=== PATIENT | male | born 1940 | race Caucasian/White ===

== ENCOUNTER 2020-08-17 07:29 | Outpatient (CLI) | payer MEDICARE, BC, SELFPAY ==
[2020-08-17 08:07] LABS: Alanine Aminotransferase 17 U/L (4-50); Albumin Level 4.2 g/dL (3.5-5.1); Alkaline Phosphatase 61 U/L (38-126); Anion Gap 5 mmol/L (8-16); Aspartate Amino Transferase 23 U/L (17-59); Blood Urea Nitrogen 17 mg/dL (9-20); Calcium 9.1 mg/dL (8.4-10.2); Carbon Dioxide 31 mmol/L (22-30); Chloride 103 mmol/L (98-107); Cholesterol 142 mg/dL (0-200); Estimated Glomerular Filt Rate > 60; Glucose 127 mg/dL (75-110); HDL Direct 36 mg/dL; Potassium 4.1 mmol/L (3.4-5.0); Sodium 139 mmol/L (137-145); Triglycerides 112 mg/dL (<150)
[2020-08-17 08:18] LABS: LDL Cholesterol Direct 79 mg/dL
== END 2020-08-17 07:30 | disposition home or self-care (01) ==
PROVIDERS: PCP Internal Medicine; Referring Provider Internal Medicine Cardiovascular Disease; Visit Provider Nurse Practitioner
DX: E78.5 Hyperlipidemia, unspecified (principal)
CPT/HCPCS: 36415; 80053; 80061

== ENCOUNTER 2020-12-18 06:42 | Outpatient (CLI) | payer MEDICARE, BC, SELFPAY ==
[2020-12-18 07:36] LABS: Alanine Aminotransferase 16 U/L (4-50); Albumin Level 3.9 g/dL (3.5-5.1); Alkaline Phosphatase 49 U/L (38-126); Anion Gap 3 mmol/L (8-16); Aspartate Amino Transferase 24 U/L (17-59); Bilirubin,Total 0.9 mg/dL (0.2-1.3); Blood Urea Nitrogen 17 mg/dL (9-20); Calcium 8.8 mg/dL (8.4-10.2); Carbon Dioxide 29 mmol/L (22-30); Chloride 104 mmol/L (98-107); Cholesterol 141 mg/dL (0-200); Estimated Glomerular Filt Rate > 60; Glucose 125 mg/dL (75-110); HDL Direct 45 mg/dL; Sodium 136 mmol/L (137-145); Triglycerides 84 mg/dL (<150)
[2020-12-18 07:40] LABS: Hemoglobin A1C 5.9 % (<5.7)
[2020-12-18 07:46] LABS: LDL Cholesterol Direct 74 mg/dL
== END 2020-12-18 06:43 | disposition home or self-care (01) ==
LOC: ANHLAB 06:56
PROVIDERS: PCP Internal Medicine; Referring Provider Internal Medicine Cardiovascular Disease; Visit Provider Internal Medicine
DX: E11.9 Type 2 diabetes mellitus without complications (principal); E78.5 Hyperlipidemia, unspecified; I10 Essential (primary) hypertension
CPT/HCPCS: 36415; 80053; 80061; 83036

== ENCOUNTER 2021-06-23 09:32 | Outpatient (CLI) | payer MEDICARE, BC, SELFPAY ==
[2021-06-23 10:46] LABS: Alanine Aminotransferase 17 U/L (4-50); Albumin Level 4.1 g/dL (3.5-5.1); Alkaline Phosphatase 55 U/L (38-126); Anion Gap 7 mmol/L (8-16); Aspartate Amino Transferase 27 U/L (17-59); Bilirubin,Total 1.1 mg/dL (0.2-1.3); Blood Urea Nitrogen 13 mg/dL (9-20); Calcium 8.9 mg/dL (8.4-10.2); Carbon Dioxide 27 mmol/L (22-30); Chloride 100 mmol/L (98-107); Cholesterol 138 mg/dL (0-200); Estimated Glomerular Filt Rate > 60; Glucose 135 mg/dL (65-110); HDL Direct 52 mg/dL; Potassium 3.8 mmol/L (3.4-5.0); Sodium 134 mmol/L (137-145); Triglycerides 76 mg/dL (<150)
[2021-06-23 10:57] LABS: LDL Cholesterol Direct 67 mg/dL
[2021-06-23 11:11] LABS: Creatinine Urine 164.5 mg/dL; Hemoglobin A1C 6.2 % (<5.7)
[2021-06-23 11:14] LABS: MALB Creatinine Ratio 7.1 mg/g (0-30); Microalbumin Urine Random 11.7 mg/L (0-16.7)
== END 2021-06-23 09:33 | disposition home or self-care (01) ==
PROVIDERS: PCP Internal Medicine; Visit Provider Nurse Practitioner
DX: E78.5 Hyperlipidemia, unspecified (principal); E11.9 Type 2 diabetes mellitus without complications
CPT/HCPCS: 36415; 80053; 80061; 82043; 83036

== ENCOUNTER 2021-10-17 06:34 | Outpatient (CLI) | payer MEDICARE, BC, SELFPAY ==
--- NOTE | ~2021-10-17 | CT_ITS ---
EXAMINATION: CT abdomen pelvis wo/w con DATE: 10/17/2021 07:16 INDICATION: Gross hematuria, history of prostate cancer TECHNIQUE: Computed tomography (CT) of the abdomen and pelvis was performed without intravenous contr ast. CT of the abdomen and pelvis was then performed with a total of 130 mL Omnipaque 350 intravenous contrast using a double-bolus technique for simultaneous opacification of the renal parenchyma and r enal collecting system. The dose-length product (DLP) was 714.93 mGy-cm. Automated exposure control a nd iterative reconstruction technique were employed. COMPARISON: None FINDINGS: The lung bases are clear. The heart size is normal. There is mild nodularity of the liver s urface. The spleen, pancreas, gallbladder, and adrenal glands are normal. There is a 3 cm cyst of the right kidney. No suspicious renal or urothelial lesion is identified. Portions of the ureters are no t opacified however no obstructing lesion is identified. There are five nonobstructing stones in the right kidney which measure up to 5 mm. There are five nonobstructing stones of the left kidney which measure up to 6 mm. There are trabeculations of the urinary bladder. No pathologically enlarged abdom inal or pelvic lymph nodes are identified. There is calcified atherosclerosis of the aorta and many o f the other arteries. There is no free intraperitoneal gas or evidence of bowel obstruction. There is a burst fracture of L3. Severe lumbar spondylosis is noted at L4-5. IMPRESSION: 1. Nonobstructing bilateral nephrolithiasis. 2. Cirrhosis. Reviewed, dictated and finalized at location A. RCUTTER
[2021-10-17 07:01] LABS: Estimated Glomerular Filt Rate > 60
== END 2021-10-17 06:35 | disposition home or self-care (01) ==
LOC: ANHIMG 06:39
PROVIDERS: PCP Internal Medicine; Visit Provider Urology
DX: R31.0 Gross hematuria (principal); K74.60 Unspecified cirrhosis of liver; N20.0 Calculus of kidney
CPT/HCPCS: 74178; Q9967

== ENCOUNTER 2021-11-10 10:25 | Outpatient (CLI) | payer MEDICARE, BC, SELFPAY ==
--- NOTE | 2021-11-10 10:30 | ECG_ITS ---
Measurements Intervals Bath Rate: 89 P: VA: 0 QRS: 52 QRSD: 85 T: 31 QT: 344 QTc: 419 Interpretive Statements ATRIAL FIBRILLATION VENTRICULAR PREMATURE COMPLEX INCOMPLETE RIGHT BUNDLE BRANCH BLOCK DELAYED PRECORDIAL R/S TRANSITION BASELINE ARTIFACT- I, II, III, AVR, AVL, AVF, V1 ABNORMAL ECG Electronically Signed On 11-10-2021 11:43:38 [employer]PERVISOR [employer] by Franklin Liu D.O.
[2021-11-10 11:38] LABS: INR 1.3; Partial Thromboplastin Time 33.4 SECONDS (22.3-36.8); Prothrombin Time 16.1 Seconds (11.1-14.7)
[2021-11-10 11:43] LABS: Anion Gap 8 mmol/L (8-16); Blood Urea Nitrogen 16 mg/dL (9-20); Calcium 9.2 mg/dL (8.4-10.2); Carbon Dioxide 28 mmol/L (22-30); Chloride 100 mmol/L (98-107); Estimated Glomerular Filt Rate > 60; Glucose 137 mg/dL (65-110); Potassium 3.9 mmol/L (3.4-5.0); Sodium 136 mmol/L (137-145)
== END 2021-11-10 10:26 | disposition home or self-care (01) ==
PROVIDERS: Anesthesiology; PCP Internal Medicine; Visit Provider Urology
DX: Z01.818 Encounter for other preprocedural examination (principal); I10 Essential (primary) hypertension; E11.9 Type 2 diabetes mellitus without complications; N20.0 Calculus of kidney; R94.31 Abnormal electrocardiogram [ECG] [EKG]
CPT/HCPCS: 36415; 80048; 85610; 85730; 87086; 93005

== ENCOUNTER 2021-11-14 00:16 | Day surgery (SDC) | payer MEDICARE, BC, SELFPAY ==
[2021-11-07 11:09] VITALS: BMI 23.7
--- NOTE | 2021-11-07 11:40 | PC.NURSE ---
Report to the Outpatient Waiting Room, entrance under the green pavilion located off [facility], at time __10:00AM on date _11/14/21____. OR Time: ___12:00PM . - You and your visitor will be asked a series of questions to screen for COVID 19 for your protection. - A mask is required within the hospital. - Only one visitor is allowed at this time. Patient visitors will be guided where to wait when not with patient. Preoperative COVID Testing Requirements: No COVID Test needed if: (proof is required; if not received patient will have Rapid Test prior to entry) - Patient has received COVID Vaccine at least 14 days prior to procedure date or - Patient has positive COVID test result within last 90 days of surgery date. COVID Test needed if above criteria is not met If not COVID vaccinated a COVID test must be conducted within 72 hours of surgery and patient is asked to isolate self from time of testing until procedure. You will go to the [facility] for your COVID testing. The [facility] Testing site is located at the corner of [address] from [facility]. You will only be called if COVID results are positive and your surgeon may reschedule your elective surgery date. Patients may have clear liquids (water, carbonated beverages, clear teas, apple juice) until 3 hours prior to surgery with a maximum of 20 ounces. - No food from midnight until time of surgery - Infants may have breast milk until 4 hours before surgery, infant formula 6 hours prior to surgery. - Children will be allowed to drink immediately following surgery. If applicable, please bring a bottle or sippy cup to assist with drinking. Juice, water, soda, and popsicles are readily available. For infants on formula, please bring formula the day of surgery. Pacifiers are allowed. Take the following medications with a SIP of water the morning of surgery: ___DILTIAZEM, LORAZEPAM NEEDED Medications to discontinue per physician ____SHEILA LD 11/11/[address] SANDERS, ALL VITAMINS/SUPPLEMENTS 3 DAYS PRE-OP Date to take last dose 11/11/21 Please no make-up, nail chinese, hairspray, perfume, deodorant, or body powder the day of surgery. No jewelry (including any body piercings) or valuables the day of surgery, leave them at home. Please take a shower or bath the night before, or the morning of, surgery with an antibacterial soap. Wear comfortable, loose fitting clothing. Children are encouraged to wear pajamas. - Jewelry must be removed prior to entering the operating room. Rings and piercings that are not removed may be cut off. - The hospital will not accept responsibility for valuables. - Please leave all valuables, including medications, at home the day of surgery. If you are going home after surgery, a licensed medical delivery driver must drive you home. - NO public transportation without another adult. - We recommend that an adult stay with you for 24 hours following discharge. - We also recommend that you do not drive, make important decision, drink alcoholic beverages, or take any drugs that were not prescribed by your health care provider for at least 24 hours after your discharge time. For Pediatric surgeries, we recommend two adults accompany the child home (only one inside the building at this time). Follow any additional instructions given to you from your surgeon. Telephone instructions given to _PATIENT & WIFE and asked if any additional questions and then verbalized understanding. Patient advised to call surgeon office or pre surgery nurse liaison [phone] if any additional questions.
[2021-11-14] VITALS (8 sets, daily range): BP systolic 140–166; BP diastolic 71–93; PULSE 66–99; RESP 10–16; TEMP 36.3–37; O2SAT 97–100
--- NOTE | ~2021-11-14 | XR_ITS ---
EXAMINATION: XR abdomen/kub 1V DATE: 11/14/2021 09:22 INDICATION: Kidney stone. TECHNIQUE: A supine view of the abdomen on 2 radiographs was obtained. COMPARISON: CT abdomen and pelvis 10/17/2021 FINDINGS: There are no dilated loops of bowel. Surgical clips overlie the pelvis. The kidneys are obs cured by bowel. There is a 4 mm stone in left kidney lower pole. IMPRESSION: 1. 4 mm stone in left kidney lower pole. Reviewed, dictated and finalized at location B. OW REPRESENTATIVE
--- NOTE | 2021-11-14 07:50 | WPDANESEPP ---
Anes - Eval Pre Procedure Procedure: Operation Date: 11/14/21 11:00 Proposed Procedures p Flexible Cystoscopy - Judson Gonzáles MD s Left Extracorporeal Shock Wave Lithotripsy - Judson Gonzáles MD Date/Time: 11/14/21 07:50 Pre Op Diagnosis: Lt Kidney Stone Patient Data Age: 81 Gender: M Height: 1.78 m Weight: 75 kg Allergies Allergy/AdvReac Type Severity Reaction Status Date / Time No Known Allergies Allergy Verified 11/07/21 11:00 Home Medications Medication Instructions Recorded Confirmed Type docusate sodium 100 mg tablet 100 mg PO BID 09/18/19 11/07/21 History tamsulosin 0.4 mg capsule 0.4 mg PO HS 09/18/19 11/07/21 History vit C 250 mg-vit E 90 mg-zinc 40 1 tablet PO BID 05/13/21 11/07/21 History mg-copper 1 [id number] capsule lorazepam 0.5 mg tablet 0.5 mg PO DAILY PRN #30 tablet 10/07/21 11/07/21 Rx apixaban [Eliquis] 5 mg PO BID 11/07/21 11/07/21 History atorvastatin 10 mg PO HS 11/07/21 11/07/21 History diltiazem HCl 180 mg PO QAM 11/07/21 11/07/21 History escitalopram oxalate [Lexapro] 5 mg PO HS 11/07/21 11/07/21 History metformin 500 mg PO QACDINNER 11/07/21 11/07/21 History pantoprazole 40 mg tablet,delayed See Rx Instructions .ROUTE 11/12/21 Rx release .COMPLEX #90 tablet Patient hx anesthesia problems: none Family hx anesthesia problems: none Results Review: All pre-operative results and documents have been reviewed as part of the pre-operative evaluation. [facility] Past Medical History Medical History Atrial fibrillation BPH NOS w ur obs/LUTS (08/01/19) Depression Depression with anxiety Gastroesophageal reflux disease Hx of completed stroke Hypertension Prostate cancer Recurrent major depressive disorder, in full remission Stroke Type 2 diabetes mellitus without complication, with no history of insulin use (08/01/19) Family History Family History Mother Family history of alcoholism Family history unknown Father Malignant neoplasm of prostate Family history unknown Sibling Patient's sister is in good health Patient's brother is in good health Social History Social History Years smoked: 2 Smoking status: Former smoker Tobacco type: cigarettes Second hand tobacco smoke exposure: No Smoking end date: 05/01/1960 Additional smoking assessment comments: LIGHT SMOKER X2 YRS Alcohol intake: former Alcohol use details: HEAVY DRINKER/ALCOHOLIC, QUIT 1985 Substance use: never Living arrangements: with family Additional living arrangements comments: Spiritual care concerns: No Exam Day of Procedure 11/14/21 07:50 Patient weight: normal Heart: regular rate and rhythm (VR 89 ATRIAL FIBRILLATION VENTRICULAR PREMATURE COMPLEX INCOMPLETE RIGHT BUNDLE BRANCH BLOCK DELAYED PRECORDIAL R/S TRANSITION BASELINE ARTIFACT- I, II, III, AVR, AVL, AVF, V1 ABNORMAL ECG) Lungs: clear to auscultation Airway: Mallampati scale class II Neurological: alert and oriented
--- NOTE | 2021-11-14 08:20 | PM.HPGS ---
History of Present Illness History of Present Illness Consent: Risks, benefits, and alternatives have been discussed and questions answered. Patient agrees to proceed with procedure. Chief complaint: Lt Kidney Stone Narrative: Cholo Conteh Jr. is a 81 year old male, who is well known to me with long history of recurrent urethral stricture. He recently underwent evaluation for microscopic hematuria and CT scan the abdomen and pelvis revealed bilateral renal calculi, up to 5 mm in the right kidney and 6 mm in left kidney. After discussion of options he elected for left ESWL with simultaneous cystoscopy to complete evaluation for hematuria. Review of Systems Cardiovascular: Cardiovascular: Denies chest pain, Denies lightheadedness, Denies palpitations and Denies dyspnea Respiratory: Respiratory: Denies dyspnea Gastrointestinal: Gastrointestinal: Denies diarrhea, Denies nausea and Denies vomiting Genitourinary: Genitourinary: Denies hematuria and Denies dysuria Endocrine: Endocrine: Denies palpitations [facility] Past Medical History Medical History Atrial fibrillation BPH NOS w ur obs/LUTS (08/01/19) Depression Depression with anxiety Gastroesophageal reflux disease Hx of completed stroke Hypertension Prostate cancer Recurrent major depressive disorder, in full remission Stroke Type 2 diabetes mellitus without complication, with no history of insulin use (08/01/19) Family History Family History Mother Family history of alcoholism Family history unknown Father Malignant neoplasm of prostate Family history unknown Sibling Patient's sister is in good health Patient's brother is in good health Social History Social History Years smoked: 2 Smoking status: Former smoker Tobacco type: cigarettes Second hand tobacco smoke exposure: No Smoking end date: 05/01/1960 Additional smoking assessment comments: LIGHT SMOKER X2 YRS Alcohol intake: former Alcohol use details: HEAVY DRINKER/ALCOHOLIC, QUIT 1985 Substance use: never Living arrangements: with family Additional living arrangements comments: Spiritual care concerns: No Meds Home Medications and Allergies Home Medications Medication Instructions Recorded Confirmed Type docusate sodium 100 mg tablet 100 mg PO BID 09/18/19 11/07/21 History tamsulosin 0.4 mg capsule 0.4 mg PO HS 09/18/19 11/07/21 History vit C 250 mg-vit E 90 mg-zinc 40 1 tablet PO BID 05/13/21 11/07/21 History mg-copper 1 [id number] capsule lorazepam 0.5 mg tablet 0.5 mg PO DAILY PRN #30 tablet 10/07/21 11/07/21 Rx apixaban [Eliquis] 5 mg PO BID 11/07/21 11/07/21 History atorvastatin 10 mg PO HS 11/07/21 11/07/21 History diltiazem HCl 180 mg PO QAM 11/07/21 11/07/21 History escitalopram oxalate [Lexapro] 5 mg PO HS 11/07/21 11/07/21 History metformin 500 mg PO QACDINNER 11/07/21 11/07/21 History pantoprazole 40 mg tablet,delayed See Rx Instructions .ROUTE 11/12/21 Rx release .COMPLEX #90 tablet Allergies Allergy/AdvReac Type Severity Reaction Status Date / Time No Known Allergies Allergy Verified 11/07/21 11:00 Exam Const: General: no acute distress Resp: Effort & Inspection: normal respiratory effort GI: Inspection: non-distended GI Palp: No abdominal tenderness and No Guarding due to palpation present (GI) Auscultation: normal bowel sounds Assessment and Plan Assessment and plan (1) Microscopic hematuria: Code(s): R31.29 - Other microscopic hematuria Status: Acute (2) Bilateral renal stones: Code(s): N20.0 - Calculus of kidney Status: Acute Assessment and Plan: Flexible cystoscopy and left ESWL
--- NOTE | 2021-11-14 08:54 | WPDHPUPDATE1 ---
History and Physical Update Update Date/Time: 11/14/21 08:54 History and Physical has been reviewed, including an updated exam of the patient. There are NO changes in the patient's condition. Risks, benefits, and alternatives have been discussed and questions answered. Patient agrees to proceed with procedure.
[2021-11-14] MEDS: LACTATED RINGERS 1,000 ML 30 ML IV CONT (09:59)
[2021-11-14 10:00] LABS: Glucose Point of Care 113 mg/dl (65-105)
--- NOTE | 2021-11-14 10:05 | WPDANESEFPP ---
Anes - Eval Final PreProcedure Day of Procedure 11/14/21 10:05 Patient weight: normal Heart: regular rate and rhythm Lungs: clear to auscultation and normal air movement Airway: Mallampati scale class II Neurological: alert and oriented Last oral intake: >/= 8 hours ASA classification: III Emergent: no Anesthetic plan: proceed Anesthesia type and monitoring: general LMA and standard monitoring Results Review: All pre-operative results and documents have been reviewed as part of the pre-operative evaluation. Informed Consent: The patient's anesthetic plan and its attendant risks and benefits were discussed with the patient/family/POA. Questions were solicited and answers provided to the satisfaction of the patient/family/POA.
[2021-11-14 10:09] LABS: INR 1.1; Prothrombin Time 13.9 Seconds (11.1-14.7)
[2021-11-14] MEDS: ceFAZolin 2 GM/D5W 50 ML 2 GM/50 ML BAG IVPB (10:14)
--- NOTE | 2021-11-14 10:42 | W.PM.PROC2 ---
Procedure Note - Detailed Date of Procedure 11/14/21 Pre-op Diagnosis Bilateral renal stones Intermittent hematuria Post-op Diagnosis other (1. Bilateral renal stones 2. Mild radiation cystitis) Procedure Performed 1. Flexible cystoscopy 2. Left ESWL Surgeon Judson Gonzáles MD Anesthesia general Description of Procedure Patient brought to the operative suite where he was 1st placed in a supine position for flexible cystoscopy. This is undertaken with a 16 F flexible cystoscope after the uneventful induction of a general LMA anesthetic. Is minimal prostatic enlargement. The bladder was slightly trabeculated with 1 early cellule formation. There was 1 area measuring approximately 1 cm that appears to be consistent with radiation cystitis. The remaining the mucosa is without hyperemia. He was then positioned a a supine position with the Lithotripter at a 5 mm left lower calyceal stone. A total 2500 shocks were delivered at a power setting of 4. He tolerated the procedure nicely Estimated Blood Loss 0 Drains No Packing No Pathology none sent Complications No immediate complications Condition stable Disposition PACU
[2021-11-14 11:06] LABS: Glucose Point of Care 133 mg/dl (65-105)
== END 2021-11-14 12:49 | disposition home or self-care (01) ==
PROVIDERS: PCP Internal Medicine; Visit Provider Urology
PROC: 0TJB8ZZ Inspection of Bladder, Via Natural or Artificial Opening Endoscopic (ICD-10-PCS; CPT 52000; principal; 2021-11-14 11:00)
PROC: (CPT 50590; 2021-11-14 11:00)
DX: N20.0 Calculus of kidney (principal); N30.41 Irradiation cystitis with hematuria; N02.9 Recurrent and persistent hematuria with unspecified morphologic changes; N40.1 Benign prostatic hyperplasia with lower urinary tract symptoms; N13.8 Other obstructive and reflux uropathy; F41.8 Other specified anxiety disorders; K21.9 Gastro-esophageal reflux disease without esophagitis; Z86.73 Personal history of transient ischemic attack (TIA), and cerebral infarction without residual deficits; Z85.46 Personal history of malignant neoplasm of prostate; E11.9 Type 2 diabetes mellitus without complications; Z87.891 Personal history of nicotine dependence; Z79.01 Long term (current) use of anticoagulants; Y84.2 Radiological procedure and radiotherapy as the cause of abnormal reaction of the patient, or of later complication, without mention of misadventure at the time of the procedure
CPT/HCPCS: 50590; 52000; 36415; 74018; 82948; 85610; A9270; J0690; J1100; J1885; J2405; J2704; J3010; J7120

== ENCOUNTER 2021-11-25 09:39 | Outpatient (CLI) | payer MEDICARE, BC, SELFPAY ==
--- NOTE | ~2021-11-25 | XR_ITS ---
XR abdomen/kub 1V 11/25/2021 10:00 Indication: Renal stone Procedure: KUB Comparison: 11/14/2021 Findings: There are bilateral renal stones. Bowel gas pattern is nonobstructive. Moderate colonic fec al loading. There are multiple compression deformities of the lumbar spine with moderate lumbar spond ylosis. Lung bases unremarkable. Impression: 1: Bilateral nephrolithiasis. Reviewed, dictated and finalized at location B. S CYLINDER FLANGER Impression: 1: Bilateral nephrolithiasis.
== END 2021-11-25 09:40 | disposition home or self-care (01) ==
PROVIDERS: PCP Internal Medicine; Visit Provider Urology
DX: N20.0 Calculus of kidney (principal)
CPT/HCPCS: 74018

== ENCOUNTER 2021-12-29 06:43 | Outpatient (CLI) | payer MEDICARE, BC, SELFPAY ==
[2021-12-29 07:11] LABS: Alanine Aminotransferase 18 U/L (4-50); Albumin Level 3.9 g/dL (3.5-5.1); Alkaline Phosphatase 55 U/L (38-126); Anion Gap 5 mmol/L (8-16); Aspartate Amino Transferase 30 U/L (17-59); Blood Urea Nitrogen 16 mg/dL (9-20); Calcium 8.4 mg/dL (8.4-10.2); Carbon Dioxide 29 mmol/L (22-30); Chloride 105 mmol/L (98-107); Cholesterol 132 mg/dL (0-200); Estimated Glomerular Filt Rate > 60; Glucose 105 mg/dL (65-110); HDL Direct 46 mg/dL; Potassium 3.9 mmol/L (3.4-5.0); Sodium 139 mmol/L (137-145); Triglycerides 53 mg/dL (<150)
[2021-12-29 07:22] LABS: LDL Cholesterol Direct 64 mg/dL
== END 2021-12-29 06:44 | disposition home or self-care (01) ==
PROVIDERS: PCP Internal Medicine; Referring Provider Internal Medicine Cardiovascular Disease; Visit Provider Internal Medicine
DX: E11.9 Type 2 diabetes mellitus without complications (principal); I10 Essential (primary) hypertension; E78.5 Hyperlipidemia, unspecified
CPT/HCPCS: 36415; 80053; 80061; 83036

== ENCOUNTER 2022-01-22 14:30 | Outpatient (RCR) | payer MEDICARE, BC, SELFPAY ==
--- NOTE | 2021-12-23 17:03 | PTOPEVAL ---
PHYSICAL THERAPY EVALUATION and PLAN OF CARE Thank you for referring Cholo Conteh to [facility].? The patient is scheduled to be seen for therapy? 2x/week for 4 weeks. Please review, sign, date and return this plan of care NEGRITO. I agree with and certify that the following plan of care is medically necessary. Referring Physician Date Attending Provider: Deirdre Oconnor, BENCH WORKER APPRENTICE-C Evaluation Outpatient Past Medical History Neurological History Hx Cerebrovascular Accident (CVA) Yes: CVA R/T A FIB, tPA-2014, RT SIDE WEAKNESS TEMPORARILY Cardiovascular History Hx Atrial Fibrillation Yes: DR FIELDS Hx Hypertension Yes Hx Internal Defibrillator Yes Respiratory History Hx COVID-19 Yes: 10/16/20, NOT HOSPITALIZED Gastrointestinal History Hx Gastroesophageal Reflux Disease Yes Hx Hernia Yes: BILAT INGUINAL HERNIA REPAIR Genitourinary History Hx Other Genitourinary Disorders Yes: PROSTATE CA- 45 RADIATION TREATMENTS , LT KIDNEY STONE Musculoskeletal History Hx Musculoskeletal Disorders No Significant History Hematological History Hx Hematological Disorders No Significant History Endocrine History Hx Diabetes Yes HEENT History Hx Cataracts Yes: BILAT IMPLANTS Hx Tonsillectomy Yes Integumentary History Hx Excision Skin Lesion Yes: MOHS SURG X3-4 FACE, PLUS HEAD/BACK/RT SHOULDER Reproductive History Hx Reproductive Disorders No Significant History Psychosocial History Hx Anxiety Yes Hx Depression Yes Other History Hx Cancer Yes: SKIN CA AND PROSTATE CA Diagnosis right UE tremor Subjective Information notes that he has had a tremor Query Text:As Reported By Patient/ in the right arm that started Family about 6 years ago. Notes that the it can be as small as the right thumb and as big as the whole right arm. States that it will tremor at rest and in certain positions. Does not tremor when eating, shaving, getting dressed, and tying shoes. States that his handwriting has changed and has a difficult time looping the letters. States that sometimes he feels like he has a difficult time getting words out. If he
--- NOTE | 2022-01-22 15:17 | PTOPEVAL ---
PHYSICAL THERAPY DISCHARGE NOTE Thank you for referring Cholo Conteh JrKay to [facility].? Please review, sign, date and return this plan of care NEGRITO. I agree with and certify that the following plan of care is medically necessary. Referring Physician Date Attending Provider: Deirdre Oconnor, PAYLOADER MACHINE OPERATOR-C Discharge Diagnosis right UE tremor Subjective Information states that he notices some Query Text:As Reported By Patient/ changes noting that there is Family somewhat of a lesser tremor and notes that he is able to write his name somehwat easier . Tells me that he has been encouraged by working with therapy over the last 4 weeks because he feels more confidence that he feels like he is doing something about it . 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 He presents today with tremor in UE at rest, right>left. With activity, the left UE tremor will stop and the right UE tremor will decrease. Markel is working his HEP every day and is using putty to assist in strengthening hands and dexterity. No singificant muscle strength changes have occurred but functionally he is demonstrating improved PT Services Indicated Yes Rehabilitation Potential Good Potential Barriers to Goal Achievements Severity of Condition Support Requirements For Optimal None [place]
== END 2022-01-23 09:29 | disposition home or self-care (01) ==
LOC: ANHPT 14:30
PROVIDERS: PCP Internal Medicine; Visit Provider Nurse Practitioner
DX: R25.1 Tremor, unspecified (principal)
CPT/HCPCS: 97110; 97112; 97163

== ENCOUNTER 2022-07-09 06:39 | Outpatient (CLI) | payer MEDICARE, BC, SELFPAY ==
[2022-07-09 07:41] LABS: Alanine Aminotransferase 16 U/L (6-50); Albumin Level 4.3 g/dL (3.5-5.1); Alkaline Phosphatase 56 U/L (38-126); Anion Gap 14 mmol/L (8-16); Aspartate Amino Transferase 25 U/L (17-59); Blood Urea Nitrogen 17 mg/dL (9-20); Calcium 8.7 mg/dL (8.4-10.2); Carbon Dioxide 27 mmol/L (22-30); Chloride 100 mmol/L (98-107); Cholesterol 139 mg/dL (0-200); Estimated Glomerular Filt Rate > 60; Glucose 115 mg/dL (65-110); HDL Direct 50 mg/dL; Potassium 3.8 mmol/L (3.4-5.0); Sodium 141 mmol/L (137-145); Triglycerides 62 mg/dL (<150)
[2022-07-09 07:52] LABS: LDL Cholesterol Direct 69 mg/dL
== END 2022-07-09 06:40 | disposition home or self-care (01) ==
PROVIDERS: PCP Internal Medicine; Referring Provider Internal Medicine Cardiovascular Disease; Visit Provider Nurse Practitioner
DX: F41.9 Anxiety disorder, unspecified (principal); F32.A Depression, unspecified; E78.5 Hyperlipidemia, unspecified; Z51.81 Encounter for therapeutic drug level monitoring; Z79.899 Other long term (current) drug therapy
CPT/HCPCS: 36415; 80053; 80061; 83036; 84443

== ENCOUNTER 2023-01-25 07:19 | Outpatient (CLI) | payer MEDICARE, BC, SELFPAY ==
[2023-01-25 08:04] LABS: Alanine Aminotransferase 26 U/L (6-50); Alkaline Phosphatase 55 U/L (38-126); Anion Gap 7 mmol/L (8-16); Aspartate Amino Transferase 28 U/L (17-59); Bilirubin,Total 1.1 mg/dL (0.2-1.3); Blood Urea Nitrogen 13 mg/dL (9-20); Calcium 8.4 mg/dL (8.4-10.2); Carbon Dioxide 29 mmol/L (22-30); Chloride 101 mmol/L (98-107); Cholesterol 130 mg/dL (0-200); Estimated Glomerular Filt Rate > 60; Glucose 112 mg/dL (65-110); HDL Direct 48 mg/dL; Potassium 3.6 mmol/L (3.4-5.0); Sodium 137 mmol/L (137-145); Triglycerides 89 mg/dL (<150)
[2023-01-25 08:15] LABS: LDL Cholesterol Direct 62 mg/dL
[2023-01-25 08:37] LABS: Hemoglobin A1C 6.1 % (<5.7)
== END 2023-01-25 07:20 | disposition home or self-care (01) ==
LOC: ANHLAB 07:22
PROVIDERS: PCP Internal Medicine; Visit Provider Internal Medicine
DX: E11.9 Type 2 diabetes mellitus without complications (principal); I10 Essential (primary) hypertension; E78.5 Hyperlipidemia, unspecified
CPT/HCPCS: 36415; 80053; 80061; 83036

== ENCOUNTER 2023-07-29 06:54 | Outpatient (CLI) | payer MEDICARE, BC, SELFPAY ==
[2023-07-29 08:03] LABS: Alanine Aminotransferase 18 U/L (6-50); Albumin Level 4.1 g/dL (3.5-5.1); Alkaline Phosphatase 51 U/L (38-126); Anion Gap 5 mmol/L (8-16); Aspartate Amino Transferase 25 U/L (17-59); Bilirubin,Total 1.1 mg/dL (0.2-1.3); Blood Urea Nitrogen 14 mg/dL (9-20); Calcium 8.9 mg/dL (8.4-10.2); Carbon Dioxide 29 mmol/L (22-30); Chloride 103 mmol/L (98-107); Cholesterol 141 mg/dL (0-200); Estimated Glomerular Filt Rate > 60; Glucose 110 mg/dL (65-110); HDL Direct 53 mg/dL; Potassium 3.9 mmol/L (3.4-5.0); Sodium 137 mmol/L (137-145); Triglycerides 72 mg/dL (<150)
[2023-07-29 08:14] LABS: LDL Cholesterol Direct 69 mg/dL
[2023-07-29 09:35] LABS: Hemoglobin A1C 5.9 % (<5.7)
== END 2023-07-29 06:55 | disposition home or self-care (01) ==
LOC: ANHLAB 06:56
PROVIDERS: PCP Nurse Practitioner; Referring Provider Internal Medicine Cardiovascular Disease; Visit Provider Nurse Practitioner
DX: E11.9 Type 2 diabetes mellitus without complications (principal); E78.5 Hyperlipidemia, unspecified
CPT/HCPCS: 36415; 80053; 80061; 83036

== ENCOUNTER 2024-02-04 07:14 | Outpatient (CLI) | payer MEDICARE, BC, SELFPAY ==
[2024-02-04 08:14] LABS: Alanine Aminotransferase 25 U/L (6-50); Alkaline Phosphatase 63 U/L (38-126); Anion Gap 3 mmol/L (4-12); Aspartate Amino Transferase 30 U/L (17-59); Blood Urea Nitrogen 13 mg/dL (9-20); Calcium 9.1 mg/dL (8.4-10.2); Carbon Dioxide 30 mmol/L (22-30); Chloride 103 mmol/L (98-107); Cholesterol 121 mg/dL (0-200); Estimated Glomerular Filt Rate > 60; Glucose 100 mg/dL (65-110); HDL Direct 58 mg/dL; Potassium 4.1 mmol/L (3.4-5.0); Sodium 136 mmol/L (137-145); Triglycerides 67 mg/dL (<150)
[2024-02-04 08:25] LABS: LDL Cholesterol Direct 62 mg/dL
== END 2024-02-04 07:15 | disposition home or self-care (01) ==
LOC: ANHLAB 07:16
PROVIDERS: PCP Nurse Practitioner; Visit Provider Nurse Practitioner
DX: E78.5 Hyperlipidemia, unspecified (principal); E11.9 Type 2 diabetes mellitus without complications
CPT/HCPCS: 36415; 80053; 80061; 83036

== ENCOUNTER 2024-05-01 10:37 | Outpatient (CLI) | payer MEDICARE, BC, SELFPAY ==
--- NOTE | ~2024-05-01 | XR_ITS ---
Clinical Indication: Abnormal weight loss, cough PA and lateral views of the chest: Comparison: 10/07/2017 Findings: The lungs are clear, without evidence of focal consolidation or pleural effusion. Probable COPD. Cardiomediastinal silhouette is within normal limits. Bones and soft tissues are unremarkable. Impression: Clear lungs. Probable COPD. Reviewed, dictated and finalized at location . Impression: Clear lungs. Probable COPD.
== END 2024-05-01 10:38 | disposition home or self-care (01) ==
PROVIDERS: PCP Internal Medicine; Visit Provider Internal Medicine
DX: R63.4 Abnormal weight loss (principal)
CPT/HCPCS: 71046

== ENCOUNTER 2024-06-01 14:45 | Outpatient (CLI) | payer MEDICARE, BC, SELFPAY | END 2024-06-01 14:46 | disposition home or self-care (01) | LOC: ANHLAB 14:49 | PROVIDERS: PCP Internal Medicine; Visit Provider Internal Medicine Cardiovascular Disease | DX: R63.4 Abnormal weight loss (principal) | CPT/HCPCS: 36415; 84443 ==

== ENCOUNTER 2024-08-17 10:30 | Outpatient (CLI) | payer MEDICARE, BC, SELFPAY ==
[2024-08-17 11:10] LABS: Hematocrit 40.5 % (42.0-52.0); Hemoglobin 13.3 g/dL (14.0-18.0); Mean Corpuscular HGB Conc 32.8 g/dl (32-36); Mean Corpuscular Hemoglobin 32.6 pg (26-34); Mean Corpuscular Volume 99.3 fl (80-100); Mean Platelet Volume 9.9 fl (7.4-10.4); Platelet Count Result 166 k/mm3 (150-375); Red Blood Count 4.08 M/mm3 (4.6-6.20); Red Cell Distribution Width 13.2 % (11.5-14.5); White Blood Count 4.7 K/mm3 (4.5-10.0)
[2024-08-17 11:18] LABS: Alanine Aminotransferase 19 U/L (6-50); Alkaline Phosphatase 58 U/L (38-126); Anion Gap 6 mmol/L (4-12); Aspartate Amino Transferase 31 U/L (17-59); Bilirubin,Total 1.4 mg/dL (0.2-1.3); Blood Urea Nitrogen 14 mg/dL (9-20); Calcium 9.1 mg/dL (8.4-10.2); Carbon Dioxide 30 mmol/L (22-30); Chloride 103 mmol/L (98-107); Cholesterol 130 mg/dL (0-200); Estimated Glomerular Filt Rate > 60; Glucose 127 mg/dL (65-110); HDL Direct 54 mg/dL; Potassium 4.1 mmol/L (3.4-5.0); Sodium 139 mmol/L (137-145); Triglycerides 70 mg/dL (<150)
[2024-08-17 11:28] LABS: LDL Cholesterol Direct 48 mg/dL
[2024-08-17 11:38] LABS: Hemoglobin A1C 6.3 % (<5.7)
== END 2024-08-17 10:31 | disposition home or self-care (01) ==
PROVIDERS: PCP Internal Medicine; Referring Provider Internal Medicine Cardiovascular Disease; Visit Provider Nurse Practitioner
DX: E78.5 Hyperlipidemia, unspecified (principal); E11.9 Type 2 diabetes mellitus without complications
CPT/HCPCS: 36415; 80053; 80061; 83036; 85027

== ENCOUNTER 2024-12-26 15:50 | Outpatient (CLI) | payer MEDICARE, BC, SELFPAY ==
[2024-12-26 17:01] LABS: Basophils Percent Auto 0.4 % (0.2-1.2); Eosinophils Absolute Auto 0.1 K/mm3 (0-0.3); Eosinophils Percent Auto 1.1 % (0-4.4); Hematocrit 36.4 % (42.0-52.0); Hemoglobin 11.9 g/dL (14.0-18.0); Immature Granulocyte Absolute 0.01 K/mm3 (0.00-0.031); Immature Granulocyte Percent A 0.2 % (0-0.5); Lymphocytes Absolute Auto 1.23 K/mm3 (0.9-3.2); Lymphocytes Percent Auto 27.6 % (18.3-44.2); Mean Corpuscular HGB Conc 32.7 g/dl (32-36); Mean Corpuscular Hemoglobin 32.2 pg (26-34); Mean Corpuscular Volume 98.6 fl (80-100); Monocytes Absolute Auto 0.4 K/mm3 (0.1-0.6); Monocytes Percent Auto 8.7 % (2.6-8.5); Neutrophils Absolute Auto 2.8 K/mm3 (1.3-6.7); Platelet Count Result 207 k/mm3 (150-375); Red Blood Count 3.69 M/mm3 (4.6-6.20); Red Cell Distribution Width 13.9 % (11.5-14.5); White Blood Count 4.5 K/mm3 (4.5-10.0)
[2024-12-26 17:11] LABS: Alanine Aminotransferase 24 U/L (6-50); Alkaline Phosphatase 68 U/L (38-126); Anion Gap 7 mmol/L (4-12); Aspartate Amino Transferase 32 U/L (17-59); Blood Urea Nitrogen 18 mg/dL (9-20); Calcium 9.1 mg/dL (8.4-10.2); Carbon Dioxide 28 mmol/L (22-30); Chloride 103 mmol/L (98-107); Cholesterol 123 mg/dL (0-200); Estimated Glomerular Filt Rate > 60; Glucose 92 mg/dL (65-110); HDL Direct 54 mg/dL; Potassium 4.5 mmol/L (3.4-5.0); Sodium 138 mmol/L (137-145); Triglycerides 53 mg/dL (<150)
[2024-12-26 17:22] LABS: LDL Cholesterol Direct 47 mg/dL
[2024-12-26 17:28] LABS: Creatinine Urine 85.3 mg/dL
[2024-12-26 17:28] LABS: Hemoglobin A1C 6.1 % (<5.7)
[2024-12-26 17:33] LABS: MALB Creatinine Ratio 10.1 mg/g (0-30); Microalbumin Urine Random 8.6 mg/L (0-16.7)
--- OUTSIDE RECORDS SUMMARY | 2024-12-26 18:21 | XMS_ITS | Patient Health Summary ---
Author Organization [facility] Address [address] [place] [address] Care Team Providers Care Immigration Guard Name Role Phone Abhijeet Tom MD Primary Care Provider [phone] Note from [facility] [place],non-owned Affiliates and Associated Physician Practices is amultiple site organization consisting of ambulatory clinics and hospital sitesin [place], [place], [place] and [place]. This disclosure is being madepursuant to the Care Everywhere program and may not contain all information available regarding this patient. Last updated 18.[facility] Social History Tobacco Use Types Packs/Day Years Used Date Smoking Tobacco: Never Assessed Sex and Gender Information Value Date Recorded Sex Assigned at Not on file Gender Identity Not on file Sexual Orientation Not on file Last Filed Vital Signs Vital Sign Reading Time Taken Comments Blood Pressure 152/88 08/21/2013 7:28 AM CDT Pulse 82 08/21/2013 7:28 AM CDT Temperature - - Respiratory Rate - - Oxygen Saturation 96% 08/21/2013 7:28 AM CDT Inhaled Oxygen Concentration - - Weight 86.2 kg (190 lb) 08/21/2013 7:28 AM CDT Height 177.8 cm (5' 10 ) 08/21/2013 7:28 AM CDT Body Mass Index 27.26 08/21/2013 7:28 AM CDT Procedures * DERMATOPATHOLOGY(Performed 01/04/2023) * DERMATOPATHOLOGY(Performed 09/24/2020) * DERMATOPATHOLOGY(Performed 11/28/2019) * DERMATOPATHOLOGY(Performed 05/02/2019) * DERMATOPATHOLOGY(Performed 08/25/2017) * DERMATOPATHOLOGY(Performed 07/14/2016) * DERMATOPATHOLOGY(Performed 07/14/2016) * DERMATOPATHOLOGY(Performed 04/30/2015) * DERMATOPATHOLOGY(Performed 07/23/2014) * DERMATOPATHOLOGY(Performed 03/27/2014) * DERMATOPATHOLOGY(Performed 06/15/2013) * DERMATOPATHOLOGY(Performed 03/03/2012) Results * DERMATOPATHOLOGY (01/04/2023 12:00 AM SENIOR GRANT WRITER) Only the most recent of12 resultswithin the time period is included. Case Report Dermatopathology Report Case: [id number] Authorizing Provider: Cabrera Gomez MD Collected: 01/04/2023 12:00 AM Ordering Location: [facility] DermPath Lab Received: 01/05/2023 12:32 PM Pathologist: Ana Maddox MD Specimen: Skin, right lateral cheek 11:05 AM [facility] DERMATOPATHOLOGY LABORATORY Final Diagnosis Specimen A. SKIN, right lateral cheek: BASAL CELL CARCINOMA, NODULAR TYPE (C44.319) PRESENT AT MARGIN 11:05 AM [facility] DERMATOPATHOLOGY LABORATORY Clinical History R/O BCC. Please Check Margins. 11:05 AM [facility] DERMATOPATHOLOGY LABORATORY Gross Description Specimen A: Received is one formalin filled container labeled with the patients name and designated right lateral cheek. The specimen consists of a shave removal measuring [id number] that is inked and bisected. Jar 0. 11:05 AM [facility] DERMATOPATHOLOGY LABORATORY Microscopic Description Specimen A. SKIN, right lateral cheek: Within the dermis there are aggregates of basaloid cells with a high nuclear to cytoplasmic ratio and peripheral palisading. This lesion is present at the base of the specimen. 11:05 AM [facility] DERMATOPATHOLOGY LABORATORY Disclaimer An external and internal positive and negative controls are appropriate for the histochemical, immunohistochemical and immunofluorescence stain(s) in this case (if any), except where stated explicitly. The performance characteristics of the stain(s) cited in this report were developed and its performance characteristic determined by the Dermatopathology Laboratory at [facility], directed by Dr. Ok Woodard. These tests need not be, and therefore are not, approved by the [place] Food and Drug Administration. The tests are used for clinical purposes. Billing Codes Specimen Charges Stain Charges 56796 1 3 11:05 AM [facility] DERMATOPATHOLOGY LABORATORY Embedded Images 3 11:05 AM [facility] WRITER DERMATOPATHOLOGY LABORATORY Pathology/Cytolog y TISSUE SPECIMEN FROM SKIN / Unknown 01/04/2023 01/05/2023 12:32 PM SENIOR GRANT WRITER Cabrera Gomez MD LAB - PATHOLOGY/CYTO LOGY ORDERABLES DERMATOPATHOLOGY LABORATORY [facility] - Department of Dermatology [facility] [address] [place] [address], [address] [phone] Care Teams Immigration Guard Relationship Specialty Start Date End Date Abhijeet Tom MD PCP - General 05/03/19
--- OUTSIDE RECORDS SUMMARY | 2024-12-26 18:21 | XMS_ITS | Encounter Summary ---
Author Organization [facility] Address [address] [place] [address] Care Team Providers Care Lamp Tester And Inspector Name Role Phone Abhijeet Tom MD Primary Care Provider [phone] Encounter Details Date Type Department Care Team (Late st Contact Info) Description 05/03/2019 Lab Requisition [facility] DermPath Lab [address] [place] [id number] Cabrera Gomez MD [address] [place] [address] Social History Tobacco Use Types Packs/Day Years Used Date Smoking Tobacco: Never Assessed Sex and Gender Information Value Date Recorded Sex Assigned at Not on file Gender Identity Not on file Sexual Orientation Not on file documented as of this encounter Plan of Treatment Not on file documented as of this encounter Procedures Procedure Name Priority Date/Time Associated Diagnosis Comments DERMATOPATHOLOGY Routine 05/02/2019 12:0 0 AM CDT documented in this encounter Results * DERMATOPATHOLOGY (05/02/2019 12:00 AM CDT) Case Report Dermatopathology Report Case: [id number] Authorizing Provider: Cabrera Gomez MD Collected: 05/02/2019 12:00 AM Pathologist: Jayant Woodard MD Received: 05/03/2019 01:50 PM Specimen: Skin, left mandaen 12:03 PM CDT DERMATOPATHOLOGY LABORATORY Final Diagnosis Specimen A. 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 12:03 PM CDT DERMATOPATHOLOGY LABORATORY Gross Description Specimen A: Received is one formalin filled container labeled with the patient's name and designated left mandaen. The specimen consists of a shave biopsy (2 pieces) measuring 8y8n3dt & 3r3o9rk. Jar 0. 12:03 PM CDT DERMATOPATHOLOGY LABORATORY Microscopic Description Specimen A. SKIN, left mandaen: Within the dermis there are aggregates of basaloid cells with a high nuclear to cytoplasmic ratio and peripheral palisading. 12:03 PM CDT DERMATOPATHOLOGY LABORATORY Disclaimer An external and internal positive and negative controls are appropriate for the histochemical, immunohistochemical and immunofluorescence stain(s) in this case (if any), except where stated explicitly. The performance characteristics of the stain(s) cited in this report were developed and its performance characteristic determined by the Dermatopathology Laboratory at [facility], directed by Dr. Ok Woodard. These tests need not be, and therefore are not, approved by the [place] Food and Drug Administration. The tests are used for clinical purposes. Billing Codes Specimen Charges Stain Charges 88049 1 9 12:03 PM CDT DERMATOPATHOLOGY LABORATORY Embedded Images 12:03 PM CDT DERMATOPATHOLOGY LABORATORY Pathology/Cytolog y TISSUE SPECIMEN FROM SKIN / Unknown 05/02/2019 05/03/2019 1:50 PM CDT Cabrera Gomez MD LAB - PATHOLOGY/CYTO LOGY ORDERABLES DERMATOPATHOLOGY LABORATORY [facility] - Department of Dermatology [facility] [facility], [address] [place] [address], [facility] [phone] documented in this encounter Visit Diagnoses Not on filedocumented in this encounter Care Teams Lamp Tester And Inspector Relationship Specialty Start Date End Date Abhijeet Tom MD PCP - General 05/03/19 documented as of this encounter
--- OUTSIDE RECORDS SUMMARY | 2024-12-26 18:21 | XMS_ITS | Referral Summary ---
Author Organization [facility] Address [address] [place] [address] Care Team Providers Care Firefighter Name Role Phone Abhijeet Tom MD Primary Care Provider [phone] Source Comments [facility],non-owned Affiliates and Associated Physician Practices is amultiple site organization consisting of ambulatory clinics and hospital sitesin [place], [place], [place] and [place]. This disclosure is being madepursuant to the Care Everywhere program and may not contain all information available regarding this patient. Last updated 18.[facility] Social History Tobacco Use Types Packs/Day Years [...] Mass Index 27.26 08/21/2013 7:28 AM CDT Plan of Treatment Not on file Care Teams Firefighter Relationship Specialty Start Date End Date Abhijeet Tom MD PCP - General 05/03/19
--- OUTSIDE RECORDS SUMMARY | 2024-12-26 18:21 | XMS_ITS | Encounter Summary ---
Author Organization [facility] Address [address] [place] [address] Care Team Providers Care Supervisor Record Press Name Role Phone Abhijeet Tom MD Primary Care Provider [phone] Encounter Details Date Type Department Care Team (Late st Contact Info) Description 11/29/2019 Lab Requisition [facility] DermPath Lab [address] [place] [phone] Cabrera Gomez MD [address] [place] [address] Social History Tobacco Use Types Packs/Day Years Used Date Smoking Tobacco: Never Assessed Sex and Gender Information Value Date Recorded Sex Assigned at Not on file Gender Identity Not on file Sexual Orientation Not on file documented as of this encounter Plan of Treatment Not on file documented as of this encounter Procedures Procedure Name Priority Date/Time Associated Diagnosis Comments DERMATOPATHOLOGY Routine 11/28/2019 12:0 0 AM DRAFTER REFRIGERATION documented in this encounter Results * DERMATOPATHOLOGY (11/28/2019 12:00 AM DRAFTER REFRIGERATION) Case Report Dermatopathology Report Case: [id number] Authorizing Provider: Cabrera Gomez MD Collected: 11/28/2019 12:00 AM Ordering Location: [facility] DermPath Lab Received: 11/29/2019 12:18 PM Pathologist: Jayant Woodard MD Specimen: Skin, top lat left shoulder 0 1:48 PM [facility] DERMATOPATHOLOGY LABORATORY Final Diagnosis Specimen A. SKIN, top lat left shoulder: LICHEN PLANUS-LIKE KERATOSIS (BENIGN LICHENOID KERATOSIS) (L82.1) 0 1:48 PM [facility] DERMATOPATHOLOGY LABORATORY Clinical History R/O HAK, BCC, Momin's, SK. 0 1:48 PM [facility] RE[facility]ER[facility] DERMATOPATHOLOGY LABORATORY Gross Description Specimen A: Received is one formalin filled container labeled with the patient's name and designated top lat left shoulder. The specimen consists of a shave biopsy measuring [id number]. Jar 0. 0 1:48 PM [facility] DERMATOPATHOLOGY LABORATORY Microscopic Description Specimen A. SKIN, top lat left shoulder: The epidermis is mildly acanthotic. There is a lichenoid infiltrate with vacuolar changes of basilar keratinocytes and scattered necrotic keratinocytes. 0 1:48 PM [facility]TER RE[facility]IGERATION DERMATOPATHOLOGY LABORATORY Disclaimer An external and internal positive and negative controls are appropriate for the histochemical, immunohistochemical and immunofluorescence stain(s) in this case (if any), except where stated explicitly. The performance characteristics of the stain(s) cited in this report were developed and its performance characteristic determined by the Dermatopathology Laboratory at [facility], directed by Dr. Ok Woodard. These tests need not be, and therefore are not, approved by the [place] Food and Drug Administration. The tests are used for clinical purposes. Billing Codes Specimen Charges Stain Charges 60200 1 0 1:48 PM [facility]TER RE[facility]IGERATION DERMATOPATHOLOGY LABORATORY Embedded Images 0 1:48 PM DRAFTER REFRIGERATION DERMATOPATHOLOGY LABORATORY Pathology/Cytolog y TISSUE SPECIMEN FROM SKIN / Unknown 11/28/2019 11/29/2019 12:18 PM DRAFTER REFRIGERATION Cabrera Gomez MD LAB - PATHOLOGY/CYTO LOGY ORDERABLES DERMATOPATHOLOGY LABORATORY [facility] - Department of Dermatology [address] [place], [place] [id number] [place] [address] documented in this encounter Visit Diagnoses Not on filedocumented in this encounter Care Teams Supervisor Record Press Relationship Specialty Start Date End Date Abhijeet Tom MD PCP - General 05/03/19 documented as of this encounter
--- OUTSIDE RECORDS SUMMARY | 2024-12-26 18:21 | XMS_ITS | Encounter Summary ---
Author Organization [facility] Address [address] [place] [address] Care Team Providers Care Pathologist Name Role Phone Abhijeet Tom MD Primary Care Provider [phone] Encounter Details Date Type Department Care Team (Late st Contact Info) Description 01/05/2023 Lab Requisition [facility] DermPath Lab [address] [place] [phone] Cabrera Gomez MD [address] [place] [address] Social History Tobacco Use Types Packs/Day Years Used Date Smoking Tobacco: Never Assessed Sex and Gender Information Value Date Recorded Sex Assigned at Not on file Gender Identity Not on file Sexual Orientation Not on file documented as of this encounter Plan of Treatment Not on file documented as of this encounter Procedures Procedure Name Priority Date/Time Associated Diagnosis Comments DERMATOPATHOLOGY Routine 01/04/2023 12:0 0 AM 3RD MATE documented in this encounter Results * DERMATOPATHOLOGY (01/04/2023 12:00 AM 3RD MATE) Case Report Dermatopathology Report Case: [id number] Authorizing Provider: Cabrera Gomez MD Collected: 01/04/2023 12:00 AM Ordering Location: [facility] DermPath Lab Received: 01/05/2023 12:32 PM Pathologist: Ana Maddox MD Specimen: Skin, right lateral cheek 11:05 AM 3RD MATE DERMATOPATHOLOGY LABORATORY Final Diagnosis Specimen A. 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 Please Check Margins. 3 11:05 AM [facility] DERMATOPATHOLOGY LABORATORY Gross Description Specimen A: Received is one formalin filled container labeled with the patients name and designated right lateral cheek. The specimen consists of a shave removal measuring [id number] that is inked and bisected. Jar 0. 3 11:05 AM [facility] DERMATOPATHOLOGY LABORATORY Microscopic Description Specimen A. SKIN, right lateral cheek: Within the dermis there are aggregates of basaloid cells with a high nuclear to cytoplasmic ratio and peripheral palisading. This lesion is present at the base of the specimen. 3 11:05 AM [facility] DERMATOPATHOLOGY LABORATORY Disclaimer An external and internal positive and negative controls are appropriate for the histochemical, immunohistochemical and immunofluorescence stain(s) in this case (if any), except where stated explicitly. The performance characteristics of the stain(s) cited in this report were developed and its performance characteristic determined by the Dermatopathology Laboratory at [facility], directed by Dr. Ok Woodard. These tests need not be, and therefore are not, approved by the [place] Food and Drug Administration. The tests are used for clinical purposes. Billing Codes Specimen Charges Stain Charges 37828 1 3 11:05 AM [facility] DERMATOPATHOLOGY LABORATORY Embedded Images 3 11:05 AM [facility] DERMATOPATHOLOGY LABORATORY Pathology/Cytolog y TISSUE SPECIMEN FROM SKIN / Unknown 01/04/2023 01/05/2023 12:32 PM 3RD MATE Cabrera Gomez MD LAB - PATHOLOGY/CYTO LOGY ORDERABLES DERMATOPATHOLOGY LABORATORY [facility] - Department of Dermatology [address] [place] [address], [facility] [phone] documented in this encounter Visit Diagnoses Not on filedocumented in this encounter Care Teams Pathologist Relationship Specialty Start Date End Date Abhijeet Tom MD PCP - General 05/03/19 documented as of this encounter
--- OUTSIDE RECORDS SUMMARY | 2024-12-26 18:21 | XMS_ITS | Encounter Summary ---
Author Organization [facility] Address [address] [place] [address] Care Team Providers Care Asbestos Removal Supervisor Name Role Phone Abhijeet Tom MD Primary Care Provider [phone] Encounter Details Date Type Department Care Team (Late st Contact Info) Description 09/25/2020 Lab Requisition [facility] DermPath Lab [address] [place] [phone] Cabrera Gomez MD [address] [place] [address] Social History Tobacco Use Types Packs/Day Years Used Date Smoking Tobacco: Never Assessed Sex and Gender Information Value Date Recorded Sex Assigned at Not on file Gender Identity Not on file Sexual Orientation Not on file documented as of this encounter Plan of Treatment Not on file documented as of this encounter Procedures Procedure Name Priority Date/Time Associated Diagnosis Comments DERMATOPATHOLOGY Routine 09/24/2020 12:0 0 AM MANNEQUIN MAKER documented in this encounter Results * DERMATOPATHOLOGY (09/24/2020 12:00 AM MANNEQUIN MAKER) Case Report Dermatopathology Report Case: [id number] Authorizing Provider: Cabrera Gomez MD Collected: 09/24/2020 12:00 AM Ordering Location: [facility] DermPath Lab Received: 09/25/2020 11:17 AM Pathologist: Ana Maddox MD Specimen: Skin, left jain 0 4:51 PM [facility]NEQUIN MAKER DERMATOPATHOLOGY LABORATORY Final Diagnosis Specimen A. 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 The specimen consists of a curettage and desiccation biopsy measuring 8x7x1 mm. Jar 0. 0 4:51 PM [facility] DERMATOPATHOLOGY LABORATORY Microscopic Description Specimen A. SKIN, left jain: The epidermis shows parakeratosis, full thickness disorderly maturation of keratinocytes, mitoses at different levels, and dyskeratotic cells. Focally there is a suprabasilar cleft with acantholytic cells. Additional deeper sections were obtained and reviewed. 0 4:51 PM [facility] DERMATOPATHOLOGY LABORATORY Disclaimer An external and internal positive and negative controls are appropriate for the histochemical, immunohistochemical and immunofluorescence stain(s) in this case (if any), except where stated explicitly. The performance characteristics of the stain(s) cited in this report were developed and its performance characteristic determined by the Dermatopathology Laboratory at [facility], directed by Dr. Ok Woodard. These tests need not be, and therefore are not, approved by the [place] Food and Drug Administration. The tests are used for clinical purposes. Billing Codes Specimen Charges Stain Charges 31350 1 0 4:51 PM MANNEQUIN MAKER DERMATOPATHOLOGY LABORATORY Embedded Images 0 4:51 PM MANNEQUIN MAKER DERMATOPATHOLOGY LABORATORY Pathology/Cytolog y TISSUE SPECIMEN FROM SKIN / Unknown 09/24/2020 09/25/2020 11:17 AM MANNEQUIN MAKER Cabrera Gomez MD LAB - PATHOLOGY/CYTO LOGY ORDERABLES DERMATOPATHOLOGY LABORATORY [facility] - Department of Dermatology [address] [phone] documented in this encounter Visit Diagnoses Not on filedocumented in this encounter Care Teams Asbestos Removal Supervisor Relationship Specialty Start Date End Date Abhijeet Tom MD PCP - General 05/03/19 documented as of this encounter
--- OUTSIDE RECORDS SUMMARY | 2024-12-26 18:21 | XMS_ITS | Clinical Summary ---
Author Organization [facility] Address [address] [place] [address] Care Team Providers Care Park Interpreter Name Role Phone Abhijeet Tom MD Primary Care Provider [phone] Source Comments [facility],non-owned Affiliates and Associated Physician Practices is amultiple site organization consisting of ambulatory clinics and hospital sitesin [place], [place], [place] and [place]. This disclosure is being madepursuant to the Care Everywhere program and may not contain all information available regarding this patient. Last updated 18.[facility] Social History Tobacco Use Types Packs/Day Years [...] 08/21/2013 7:28 AM CDT Plan of Treatment Health Maintenance Due Date Last Done Comments MEDICARE AWV 12 MONTHS 1941 DTAP/TDAP/TD VACCINES (1 - Tdap) 1960 PNEUMOCOCCAL VACCINE 50+ (1 of 1 - PCV) 1991 ZOSTER VACCINE (1 of 2) 1991 Respiratory Syncytial Virus (RSV) Vaccine Pt: or over 60 yrs (1 - 1-dose 75+ series) 2016 COVID-19 VACCINE (2023-2 5 season) 2024 INFLUENZA VACCINE (#1) 2024 DEPRESSION SCREENING 11/01/2024 HEPATITIS B VACCINE Aged Out No longe r eligible based on patient's age to complete this topic HIB VACCINE Aged Out No longer eligi ble based on patient's age to complete this topic HPV VACCINE Aged Out No longer eligi ble based on patient's age to complete this topic MENINGOCOCCAL (Group B) VACCINE Aged Out No longer eligible based on patient's age to complete this topic MENINGOCOCCAL VACCINE Aged Out No juve juan eligible based on patient's age to complete this topic Care Teams Park Interpreter Relationship Specialty Start Date End Date Abhijeet Tom MD PCP - General 05/03/19
== END 2024-12-26 15:51 | disposition home or self-care (01) ==
LOC: ANHLAB 15:52
PROVIDERS: PCP Internal Medicine; Visit Provider Internal Medicine
DX: E78.5 Hyperlipidemia, unspecified (principal); I10 Essential (primary) hypertension; E11.9 Type 2 diabetes mellitus without complications; D64.9 Anemia, unspecified
CPT/HCPCS: 36415; 80053; 80061; 82043; 83036; 85025

== ENCOUNTER 2025-02-14 16:27 | Emergency (ER) | payer MEDICARE, BC, SELFPAY ==
--- NOTE | ~2025-02-14 | XR_ITS ---
CHEST RADIOGRAPH, PA AND LATERAL CLINICAL HISTORY: cough x5 days . COMPARISON: 05/01/2024 TECHNIQUE: PA and lateral views of the chest. FINDINGS The cardiomediastinal silhouette is unremarkable. The lungs are clear. Visualized osseous structures and soft tissues are unremarkable. IMPRESSION: No focal infiltrate or effusion. Reviewed, dictated and finalized at location A.
[2025-02-14 16:39] VITALS: BP 150/80; PULSE 64; RESP 18; TEMP 37.4; O2SAT 99
--- NOTE | 2025-02-14 16:59 | ED_ITS ---
HPI - URI/Sore Throat General Chief Complaint: Upper Respiratory Infection Stated Complaint: Cough Time Seen by Provider: 02/14/25 16:46 Source: patient, family () and RN notes reviewed Mode of arrival: ambulatory Limitations: no limitations History of Present Illness HPI Narrative: Patient presents today with a 3-5 day history of nasal congestion, headache, cough. Denies shortness of breath, sore throat, fever, or any additional symptoms. He has tried some cough drops and Mucinex without much relief. Denies history of asthma or COPD. He is a nonsmoker. Related Data Home Medications ?Medication ?Instructions ?Recorded ?Confirmed ?Last Taken ?Type tamsulosin 0.4 mg capsule 0.4 mg PO HS 09/18/19 01/05/25 11/13/21 History vit C 250 mg-vit E 90 mg-zinc 40 1 tablet PO BID 05/13/21 01/05/25 11/13/21 History mg-copper 1 [id number] capsule (PreserVision AREDS-2) docusate sodium 100 mg tablet 600 mg PO BID 01/07/23 01/05/25 Unknown History (Stool Softener) latanoprost 0.005 % eye drops 1 drp EACH EYE DAILY 06/01/24 01/05/25 Unknown History Allergies Allergy/AdvReac Type Severity Reaction Status Date / Time pollen extracts Allergy Headache Verified 01/05/25 10:39 Review of Systems Review of Systems: CONSTITUTIONAL: Denies body aches, fever, chills, or sweats. EYES: Denies visual changes, redness, or discharge. ENT: Denies rhinorrhea, sore throat, or otalgia.+ congestion CARDIOVASCULAR: Denies chest pain, palpitations, or edema. RESPIRATORY: Denies dyspnea.+ cough GASTROINTESTINAL: Denies abdominal pain, nausea, vomiting, or diarrhea. GENITOURINARY: Denies dysuria or hematuria. SKIN: Denies rash, itching, or wounds. MUSCULOSKELETAL: Denies back pain, joint pain, or myalgia. NEUROLOGIC: Denies numbness, tingling, or weakness.+ headache PSYCH: Denies depression or anxiety. COUNTS INCLUDE 234 BEDS AT THE [facility] Past Medical History Medical History Absolute glaucoma, bilateral BMI 22.0-22.9, adult Depression with anxiety BPH NOS w ur obs/LUTS (08/01/19) Gastroesophageal reflux disease Hx of completed stroke Prostate cancer Recurrent major depressive disorder, in full remission Type 2 diabetes mellitus without complication, with no history of insulin use (08/01/19) Stroke Hypertension Depression Atrial fibrillation Family History Family History Mother Family history of alcoholism Family history unknown Father Malignant neoplasm of prostate Family history unknown Sibling Patient's sister is in good health Patient's brother is in good health Social History Social History Smoking packs per day: 0.07 Smoking cigarettes per day: 1.4 Years smoked: 2 Smoking pack-years: 0.14 Smoking status: Former smoker Tobacco type: cigarettes Second hand tobacco smoke exposure: No Smoking end date: 05/01/1960 Additional smoking assessment comments: LIGHT SMOKER X2 YRS Alcohol intake: former Alcohol use details: HEAVY DRINKER/ALCOHOLIC, QUIT 1985 Substance use: never Substance use type: does not use Do You Feel Safe in your Home?: Yes Lack of Transportation: No Lack of Food: Never True Current Housing: I Have Housing Concerned About Future Housing: No Difficulty Paying Gas/Electric Bills: No Difficulty Paying for Meds: No Education: Associate Degree Difficulty w/ Childcare or Family Care: No Living arrangements: with family Additional living arrangements comments: 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 Please see nursing chart for further information. There is no relevant family history pertinent to the presenting complaint Exam Narrative: GENERAL: Well-appearing, well-nourished, and in no acute distress. HEAD: Normocephalic, atraumatic. EYES: EOMI. No redness or drainage. Conjunctivae normal. ENT: Mucous membranes pink and moist. Nares mildly congested. No rhinorrhea. TMs normal bilaterally. Throat normal. Uvula midline. NECK: Normal AROM. Supple. No lymphadenopathy. CHEST: No respiratory distress. Clear to auscultation. HEART: Regular rate and rhythm. No murmur appreciated. EXTREMITIES: Normal range of motion. No edema. SKIN: Warm, dry, no rash. Capillary refill normal. Normal skin turgor. NEURO: Alert and oriented x3. Gait steady. Bilateral upper extremity tremors. PSYCH: Normal affect. No signs of depression or anxiety. Course Course Level of Care: Express Care Visit Vital Signs Vital signs: Vital Signs Temperature 99.3 F 02/14/25 16:39 Pulse Rate 64 02/14/25 16:39 Respiratory Rate 18 02/14/25 16:39 Blood Pressure 150/80 H 02/14/25 16:39 Pulse Oximetry 99 02/14/25 16:39 Oxygen Delivery Room Air 02/14/25 16:39 Temperature 99.3 F 02/14/25 16:39 Pulse Rate 64 02/14/25 16:39 Respiratory Rate 18 02/14/25 16:39 Blood Pressure 150/80 H 02/14/25 16:39 Pulse Oximetry 99 02/14/25 16:39 Oxygen Delivery Room Air 02/14/25 16:39 Reviewed MDM - URI/Sore Throat MDM Narrative Medical decision making narrative: Chest x-ray negative. Symptoms likely viral in etiology. Discussed [id number] medication use and duration of illness. No prescription medications indicated at this time. Anticipatory guidance given. Differential Diagnosis Differential diagnosis: Likely upper respiratory infection, sinusitis, viral infection, bronchitis and other (Pneumonia) Imaging Data Radiologist's impression: ITS Impressions Chest X-Ray 02/14/25 17:10 IMPRESSION: No focal infiltrate or effusion. Critical Care Time Critical Care Time Critical Care Time: No Discharge Plan Discharge Clinical Impression: Upper respiratory infection Qualifiers: URI type: unspecified URI Qualified Code(s): J06.9 - Acute upper respiratory infection, unspecified Patient Disposition: Home Condition: Stable Instructions: Upper Respiratory Infection (DC) Additional Instructions: Your chest x-ray is negative today. Your Symptoms are likely due to a viral illness, which is not treated with antibiotics. Virus symptoms can last for up to 7-10days. Take Tylenol for pain or fever. Consider continuing Mucinex for your cough. Rest and stay hydrated. Follow up with your PCP in 5-7 days if symptoms are not improving. Go to the ER immediately if you develop shortness of breath, difficulty swallowing, or any other concerning symptoms. Your blood pressure was elevated above 120/80 today at Urgent Care. This puts you above the threshold for follow up. Please schedule a followup visit with your personal physician as soon as possible, for further evaluation and treatment. Even blood pressure exceeding 120/80 may indicate pre-hypertension. Patient Language: Panamanian Prescriptions: No Action PreserVision AREDS-2 250-90-40-1 mg capsule 1 tablet PO BID tamsulosin 0.4 mg capsule 0.4 mg PO HS docusate sodium [Stool Softener] 100 mg tablet 600 mg PO BID latanoprost 0.005 % drops 1 drp EACH EYE DAILY Eliquis 5 mg tablet See Rx Instructions .ROUTE .COMPLEX Qty: 180 2RF Dose Instruction: TAKE 1 TABLET TWICE A DAY Rx Instructions: TAKE 1 TABLET TWICE A DAY escitalopram oxalate [Lexapro] 5 mg tablet 5 mg PO DAILY Qty: 90 1RF atorvastatin 10 mg tablet See Rx Instructions .ROUTE .COMPLEX Qty: 90 2RF Dose Instruction: TAKE 1 TABLET BY MOUTH DAILY Rx Instructions: TAKE 1 TABLET BY MOUTH DAILY metformin 500 mg tablet 500 mg PO QACDINNER Qty: 90 2RF Rx Instructions: TAKE 1 TABLET BY MOUTH DAILY clonazepam 0.25 mg tablet,disintegrating 0.25 mg PO BID Qty: 60 0RF diltiazem HCl 180 mg capsule,extended release 24hr See Rx Instructions .ROUTE .COMPLEX Qty: 30 5RF Dose Instruction: TAKE 1 CAPSULE BY MOUTH DAILY Rx Instructions: TAKE 1 CAPSULE BY MOUTH DAILY pantoprazole 40 mg tablet,delayed release (DR/EC) See Rx Instructions .ROUTE .COMPLEX Qty: 90 3RF Dose Instruction: TAKE 1 TABLET BY MOUTH EVERY DAY Rx Instructions: TAKE 1 TABLET BY MOUTH EVERY DAY Follow-up/Referrals: Lenin Correia DO [Primary Care Provider] - Time of Disposition: 17:23
== END 2025-02-14 17:30 | disposition home or self-care (01) ==
PROVIDERS: Emergency Provider Nurse Practitioner; PCP Internal Medicine
DX: J06.9 Acute upper respiratory infection, unspecified (principal); I10 Essential (primary) hypertension; E11.9 Type 2 diabetes mellitus without complications; Z79.84 Long term (current) use of oral hypoglycemic drugs; I48.91 Unspecified atrial fibrillation; N40.1 Benign prostatic hyperplasia with lower urinary tract symptoms; H44.513 Absolute glaucoma, bilateral; F41.8 Other specified anxiety disorders; Z86.73 Personal history of transient ischemic attack (TIA), and cerebral infarction without residual deficits; Z85.46 Personal history of malignant neoplasm of prostate; Z87.891 Personal history of nicotine dependence
CPT/HCPCS: 71046; 99213; G0463

== ENCOUNTER 2025-03-03 14:40 | Inpatient (IN) | payer MEDICARE, BC, SELFPAY ==
--- NOTE | ~2025-03-03 | XR_ITS ---
MODIFIED ESOPHAGRAM HISTORY: Assess for aspiration TECHNIQUE: Modified barium esophagram was performed on 03/10/2025. I administered fluoroscopy and perf ormed the exam with speech pathologist. Patient was seated for lateral fluoroscopic imaging for oneil stion of thin liquids, pudding, solids and quantified amounts, followed by thin liquids in uncontroll ed amounts. This was recorded on tape. A single fluoroscopic spot image was also recorded. The DAP fo r this procedure was 1.165 Gycm2. The amount of fluoroscopy time used during this procedure was 2.2 m inutes. FINDINGS: Oral stage: Adequate function. Pharyngeal stage: Reduced laryngeal elevation and adduction. Reduced tongue base retraction and phary ngeal squeeze. There is vallecular and pharyngeal wall residue. There is laryngeal penetration and as piration.. Cervical/esophageal stage: Adequate function. IMPRESSION: Pharyngeal dysphagia with laryngeal penetration and aspiration. Please correlate with sp eech pathologist findings and specific feeding recommendations. Reviewed, dictated and finalized at location A. IMPRESSION: Pharyngeal dysphagia with laryngeal penetration and aspiration. Pl ease correlate with speech pathologist findings and specific feeding recommenda tions.
--- NOTE | ~2025-03-03 | XR_ITS ---
XR knee RT 3V Ordering provider: Tristan Aggarwal MD History: . Fall . Comparison: None. FINDINGS: BONES: No acute fracture or dislocation. JOINT SPACES: Severe narrowing of the medial compartment. Chondrocalcinosis is noted. SOFT TISSUES: Fluid is seen in the suprapatellar bursa. IMPRESSION: No acute osseous abnormality right knee. Severe osteoarthritic changes. Reviewed, dictated and finalized at location A.
--- NOTE | ~2025-03-03 | XR_ITS ---
XR knee LT 3V Ordering provider: Tristan Aggarwal MD History: . Fall . Comparison: None. FINDINGS: BONES: No acute fracture or dislocation. JOINT SPACES: Severe narrowing of the medial compartment. SOFT TISSUES: Normal. IMPRESSION: No acute osseous abnormality left knee. Severe osteoarthritic changes. Reviewed, dictated and finalized at location A.
--- NOTE | ~2025-03-03 | MR_ITS ---
Procedure: MR thoracic spine wo con Ordering provider: Tristan Aggarwal MD History: . T3/T7 fracture . Comparison: None. Technique: MRI thoracic spine without contrast. FINDINGS: SPINAL CORD: Normal. VERTEBRAL BODIES: Acute compression fracture is seen in T7 with bright signal on T2-weighted images a nd on the T2-weighted images suggestive of edema with loss of volume of about 50%. No retropulsed fra gment is seen. Slight loss of volume in the superior endplate of T3 is noted which most likely chronic. Follow-up ad vised. Dextroscoliosis. DISK SPACES: Narrowing of the disc T8-T9 is noted with endplate changes. STENOSIS: None. Multilevel facet joint disease. PARASPINOUS SOFT TISSUES: Right vertebral soft tissue bright signal is seen on T2-weighted images whi ch may indicate a hematoma. Right pleural effusion is noted. IMPRESSION: Acute compression fracture of T7 with loss of volume of about 50%. No retropulsed fragments seen. No spinal canal stenosis. Highly suggestive of hematoma on the sides s of the same level. Chronic compression fracture of T3 with minimal loss of of height. Right pleural effusion. Reviewed, dictated and finalized at location A. IMPRESSION: Acute compression fracture of T7 with loss of volume of about 50%. No retropuls ed fragments seen. No spinal canal stenosis. Highly suggestive of hematoma on t he sides s of the same level. Chronic compression fracture of T3 with minimal loss of of height. Right pleural effusion.
--- NOTE | ~2025-03-03 | MR_ITS ---
MR cervical spine wo con Ordering provider: Tristan Aggarwal MD History: 84 years Male with . r/o Fracture . Comparison: None. Technique: MRI cervical spine without contrast. FINDINGS: CERVICAL SPINAL CORD/CRANIAL CERVICAL JUNCTION: Normal in signal and caliber. CERVICAL VERTEBRAL BODIES: Normal height and alignment. Normal marrow signal. DISK SPACES: Narrowing of the disc C3-C4, C4-C5, C5-C6, C6-C7 and C7-T1. C2-C3: No stenosis. C3-C4: Mild spinal canal stenosis secondary to broad based disc bulge and osteophytes. Bilateral belgica rowing of the foramina with root compression. C4-C5: Mild spinal canal stenosis secondary to broad based disc bulge. Narrowing of the right foramen with root compression C5-C6: Mild spinal canal stenosis secondary to broad based disc bulge. Narrowing of the right foramen with root compression. C6-C7: No stenosis. Central disc protrusion or osteophyte. C7-T1: No stenosis. Mild diffuse disc bulge with narrowing of the left foramen possible root compress ion. Limited VISUALIZED PARASPINOUS SOFT TISSUES: Normal. IMPRESSION: 1. No evidence of fracture or dislocation. 2. Multilevel degenerative disc disease with variable degrees of spinal canal stenosis, intervertebr al foraminal narrowing and nerve root compression. Reviewed, dictated and finalized at location A. IMPRESSION: 1. No evidence of fracture or dislocation. 2. Multilevel degenerative disc disease with variable degrees of spinal canal stenosis, intervertebral foraminal narrowing and nerve root compression.
--- NOTE | ~2025-03-03 | CT_ITS ---
EXAMINATION: CT chest abdomen wo con DATE: 03/06/2025 11:40 INDICATION: hemothorax evaluation TECHNIQUE: Computed tomography (CT) of the chest and abdomen was performed without intravenous contra st. Additional 3D reconstructions utilizing coronal maximum intensity projection (MIP) were performed . Automated exposure control and iterative reconstruction technique were employed. The dose-length pr oduct was 485.27 mGy-cm. COMPARISON: CT dated 03/03/2025 and 10/17/2021 FINDINGS: Chest: Small right and tiny left posterior layering pleural effusions with adjacent dependent compressive at electasis in both lower lobes. No pneumonia, pulmonary edema or other pulmonary infiltrates. No pneum othorax. Cardiomegaly with biatrial enlargement, right greater than left. Atherosclerotic coronary ar kip calcific lesions. No pericardial effusion. Thoracic aorta is normal in caliber. No pathologicall y enlarged thoracic lymphadenopathy. Minimally displaced posterior right ninth, 10th and 11th rib fra ctures. Severe thoracic and lower cervical spondylosis. No change since 03/03/2025 recent-appearing com pression fractures of T3 with minimal central vertebral body height loss and T7 with 40% anterior chano tebral body loss. Abdomen: Liver, gallbladder, spleen, pancreas and bilateral adrenal glands are normal. Again seen is bilateral nonobstructing nephrolithiasis with 9 stones in the right kidney the largest at the upper pole calyx measuring 6 mm and 3 stones in left kidney measuring up to large amount of stool scattered throughou t the visualized colon. No bowel obstruction. Prominent distention of the bladder the visualized port ions of which is unremarkable. There is calcified atherosclerosis of the aorta and many of the other arteries. No pathologically enlarged abdominal or pelvic lymphadenopathy. Severe lumbar spondylosis w ith stable appearance of a chronic L3 compression fracture. IMPRESSION: 1. Again seen are recent minimally displaced fractures of the posterior right ninth-11th ribs with li sveta secondary small right pleural effusion. Tiny left pleural effusion. 2. No change since 03/03/2025 and relatively recent-appearing T3 and T7 compression fractures. 3. Cardiomegaly. 4. Bilateral nonobstructing nephrolithiasis. 5. Large amount of colonic stool which can be seen with constipation. Reviewed, dictated and finalized at location A. IMPRESSION: 1. Again seen are recent minimally displaced fractures of the posterior right n inth-11th ribs with likely secondary small right pleural effusion. Tiny left pl eural effusion. 2. No change since 03/03/2025 and relatively recent-appearing T3 and T7 compressi on fractures. 3. Cardiomegaly. 4. Bilateral nonobstructing nephrolithiasis. 5. Large amount of colonic stool which can be seen with constipation.
--- NOTE | ~2025-03-03 | CT_ITS ---
CT head without contrast Indication: Confusion Technique: Serial scans were obtained through the brain without the administration of contrast. Dose reduction technique was used on this scan by utilizing automated exposure control and iterative recon struction technique. The dose-length product (DLP) was 681.00 mGy-cm. Findings: There is no evidence of intracranial hemorrhage, mass lesion, or acute infarct. The ventri cles and subarachnoid spaces are dilated, consistent with mild atrophy. Low attenuation regions are seen within the periventricular white matter bilaterally, likely representing changes from chronic mi crovascular ischemic disease. There is no evidence of edema, mass effect or midline shift. The visu alized paranasal sinuses and mastoid air cells are clear. Impression: No intracranial hemorrhage, mass, or acute infarct. Atrophy and chronic white matter changes, as above. Reviewed, dictated and finalized at location . Impression: No intracranial hemorrhage, mass, or acute infarct. Atrophy and chronic white matter changes, as above.
--- NOTE | ~2025-03-03 | MR_ITS ---
Procedure: MR lumbar spine wo con Ordering provider: Tristan Aggarwal MD History: . L3 burst fracture. . Comparison: None. Technique: MRI thoracic spine without contrast. FINDINGS: SPINAL CORD: Normal. The conus ends at the level of L1. VERTEBRAL BODIES: Compression fracture of L3 is noted with loss of height of about 50%. This is most likely chronic with no definite edema seen in the vertebra. Hemangioma in L4 and probably into. Is n oted. Degenerative changes of the spine.Mixed intensity of the spine is seen on T1 and T2 weighted im ages. Otherwise Normal height and alignment. No compression fracture. DISK SPACES: Narrowing of the disc L3-L4 and L4-L5. L1-L2: No stenosis. Thickening of ligamenta flava. L2-L3: Severe spinal canal stenosis with thickened ligamenta flava.. Bilateral facet joint disease. Bilateral narrowing of the foramina with root compression. L3-L4: Moderate spinal canal stenosis with thickened ligamenta flava. Bilateral facet joint disease. Bilateral narrowing of the foramina with root compression. L4-L5: Diffuse disc bulge. Bilateral narrowing of the foramina. Narrowing root compression the right side is noted. L5-S1: Normal. PARASPINOUS SOFT TISSUES: Hyperintensity in the right kidney most likely renal cyst measuring 2.7 x 3 cm.. IMPRESSION: Old compression fracture of L3. Multilevel spinal canal stenosis, intervertebral foraminal narrowing and root compression. Hemangioma in L2 and L4. Right renal cyst. Ultrasound confirmation advised. Reviewed, dictated and finalized at location A. IMPRESSION: Old compression fracture of L3. Multilevel spinal canal stenosis, intervertebral foraminal narrowing and root c ompression. Hemangioma in L2 and L4. Right renal cyst. Ultrasound confirmation advised.
--- NOTE | ~2025-03-03 | CT_ITS ---
History: Fall PROCEDURE: CT head without contrast. COMPARISON: 03/05/2025 TECHNIQUE: Axial imaging of the head performed from the skull base to the vertex without IV contrast. Sagittal a nd coronal reformations obtained. DLP: 681 mGy-cm FINDINGS: The ventricles are enlarged. The dilatation of the ventricles is proportional to the degree of sulcal prominence, not uncommon in the senescent brain. Decreased attenuation is identified within the periventricular white matter, likely secondary to micr ovascular ischemic disease, in a patient of this age. There is no mass, mass effect or midline shift. There is no abnormal extra-axial fluid collection or intracranial hemorrhage. Visualized paranasal sinuses are clear. The mastoid air cells are well aerated. No acute displaced fractures within the overlying cranium. Impression: No acute intracranial hemorrhage or suspicious mass effect. Reviewed, dictated and finalized at location A. Impression: No acute intracranial hemorrhage or suspicious mass effect.
--- NOTE | ~2025-03-03 | CT_ITS ---
CLINICAL INDICATION: 84-year-old gentleman admitted after a fall on 03/03/2025 presents following a rec urrent fall 03/07/2025 COMPARISON: 03/06/2025 and 03/03/2025. TECHNIQUE: Multiple contiguous axial images of the chest, abdomen and pelvis were performed without t he administration of intravenous contrast The dose-length product (DLP) was 635.87 mGy-cm. Automated exposure control and iterative reconstruction technique were employed. FINDINGS/OBSERVATIONS: LUNG: Redemonstration of multiple right-sided lower rib fractures. No right-sided pneumothorax. Redemonstration of a right-sided hemothorax essentially unchanged from the previous studies. MEDIASTINUM: Limited evaluation without intravenous contrast. HEART: The heart is enlarged, without pericardial effusion. SOFT TISSUES OF THE CHEST: Unremarkable. Liver: The liver demonstrates homogeneous attenuation and is not enlarged. No perihepatic fluid to suggest acute traumatic injury. Gallbladder and biliary system: The gallbladder is only minimally distended, and otherwise unremarkable. Pancreas: Limited evaluation of the pancreas secondary to the lack of intravenous contrast. No peripancreatic fluid is identified to suggest acute traumatic injury. Spleen: The spleen demonstrates homogeneous attenuation and is not enlarged. No perisplenic fluid is identifi ed to suggest acute traumatic injury. Kidneys: Multiple 2 and 3 mm stones within the bilateral kidneys, unchanged from prior. No hydronephrosis. No perirenal fluid is identified to suggest acute traumatic injury. Adrenal glands: Unremarkable. Gastrointestinal tract: Fecal stasis within the colon and rectum. No free fluid within the abdomen or pelvis. Vasculature: Densely calcified atherosclerotic disease. Lymph nodes: Limited evaluation without intravenous contrast. Pelvic structures: The bladder is decompressed with a Kaba catheter, limiting its evaluation The prostate gland demonstrates multiple bulky calcifications, but is not pathologically enlarged. Body wall and musculoskeletal: No umbilical hernia. Redemonstration of compression of the superior endplate of T3 and T7. Significant degenerative diseas e is also noted throughout the remainder of the thoracolumbar spine with chronic compression of the L 3 vertebral body. IMPRESSION: Stable findings within the chest, abdomen and pelvis, as detailed above. Reviewed, dictated and finalized at location A.
--- NOTE | ~2025-03-03 | CT_ITS ---
EXAMINATION: CT chest abdomen pelvis w con DATE: 03/03/2025 17:45 INDICATION: Rib fracture, liver injury, trauma . TECHNIQUE: Computed tomography (CT) of the chest, abdomen, and pelvis was performed with 100 mL Omnip aque-350 intravenous contrast. Automated exposure control and iterative reconstruction technique were employed. The dose-length product was 368.04 mGy-cm. COMPARISON: X-ray chest 02/14/2025 CT abdomen pelvis 10/17/2021 FINDINGS: CHEST: No thoracic aortic injury. Aortic ectasia of the ascending thoracic aorta measuring up to 4.4 cm No mediastinal hematoma. No pericardial effusion. Cardiomegaly. Heavy coronary artery calcification. No acute lung injury. Bilateral dependent atelectasis. Small right pleural effusion. No pneumothorax. ABDOMEN/PELVIS: No solid organ injury. Simple right upper pole renal cysts. Bilateral nephrolithiasis. Mild bilateral ureterectasis. No evidence of bowel or mesenteric injury. Mild distal esophageal and gastric wall edema. The rectum is distended to 6.4 cm by formed stool, with mild surrounding inflammatory change. No free fluid or free air. No retroperitoneal hematoma. Atherosclerotic arterial calcifications. Pelvic contents are atraumatic. 4 mm calcification at the left UVJ. 6 mm calcification in the distal right ureter. Prostatomegaly with calcification. MUSCULOSKELETAL: Mildly displaced segmental fracture of the right posterolateral ninth rib. Nondisplaced segmental fra cture of the right posterolateral 10th rib. Nondisplaced fracture of the posterior right 11th rib. Mi ld diffuse body wall edema. Mild superior endplate deformity at T3. Stable moderate superior endplate deformity at T7. Chronic st able L3 burst fracture. IMPRESSION: No acute aortic injury. Ascending thoracic aortic ectasia. Mild esophagitis/gastritis. Mildly and nondisplaced segmental fractures of the right posterolateral ninth and 10th ribs respectiv asia. Nondisplaced fracture of the posterior 11th rib. Small adjacent pleural fluid collection likely representing a small volume hemothorax. Left UVJ and distal right ureteral calcifications causing mild ureterectasis. The rectum is mildly distended by formed stool, with mild surrounding inflammatory change, correlate for findings of constipation/fecal impaction. Early colitis is not excluded. Mild superior endplate deformity at T3, may represent acute or chronic mild compression deformity, co rrelate for pain/tenderness. Mild diffuse body wall edema. Reviewed, dictated and finalized at location K. IMPRESSION: No acute aortic injury. Ascending thoracic aortic ectasia. Mild esophagitis/gastritis. Mildly and nondisplaced segmental fractures of the right posterolateral ninth a nd 10th ribs respectively. Nondisplaced fracture of the posterior 11th rib. Sma ll adjacent pleural fluid collection likely representing a small volume hemotho rax. Left UVJ and distal right ureteral calcifications causing mild ureterectasis. The rectum is mildly distended by formed stool, with mild surrounding inflammat ory change, correlate for findings of constipation/fecal impaction. Early colit is is not excluded. Mild superior endplate deformity at T3, may represent acute or chronic mild com pression deformity, correlate for pain/tenderness. Mild diffuse body wall edema.
--- NOTE | ~2025-03-03 | XR_ITS ---
EXAMINATION: XR ribs RT 2V w CXR 2V Exam Date/Time: 03/04/2025 10:05 CDT HISTORY: rib 9-11 rib fx with small hemothorax Comparison: CT cap 03/03/2025. RESULT: Lines, tubes, and devices: None. Lungs and pleura: Streaky left basilar opacities. Mild bilateral posterior costophrenic angle blunti ng, greater on the right. Cardiothymic silhouette: Stable. Other: Nondisplaced segmental posterior lateral right ninth and 10th rib fractures. Mildly displaced posterior right 10th rib fracture. No acute upper abdominal finding. IMPRESSION: Nondisplaced segmental posterior lateral right ninth and 10th rib fractures. Mildly displaced posteri or right 10th rib fracture. Small right pleural fluid collection, likely small hemothorax. Possible trace left pleural fluid. Streaky left basilar opacities likely representing atelectasis. Reviewed, dictated and finalized at location K. IMPRESSION: Nondisplaced segmental posterior lateral right ninth and 10th rib fractures. Mi ldly displaced posterior right 10th rib fracture. Small right pleural fluid collection, likely small hemothorax. Possible trace l eft pleural fluid. Streaky left basilar opacities likely representing atelectasis.
[2025-03-03 14:41] VITALS: BP 148/85; PULSE 93; RESP 16; TEMP 36.8; O2SAT 98
[2025-03-03 16:17] VITALS: BP 147/91; PULSE 89; RESP 19; O2SAT 98
[2025-03-03 16:21] VITALS: O2SAT 98
--- NOTE | 2025-03-03 16:22 | ED.FALL ---
HPI - Fall General Chief Complaint: Fall <Pradeep Horta MD - Last Filed: 03/03/25 19:51> Stated Complaint: fall, back pain, weakness <Pradeep Horta MD - Last Filed: 03/03/25 19:51> Time Seen by Provider: 03/03/25 16:19 <Pradeep Horta MD - Last Filed: 03/03/25 19:51> Source: patient and family <Pradeep Horta MD - Last Filed: 03/03/25 19:51> History of Present Illness HPI Narrative: 84 YEARS OLD WHITE MALE CAME FROM HOME WITH HIS BY PRIVATE CAR COMPLAINING OF RIGHT LOWER RIBS AND RIGHT UPPER QUADRANT PAIN STARTED AFTER FALLING 1 AND HAVE WEEKS AGO AT HOME MISSING 1 STEP, FALLING FORWARD, DENIES OTHER INJURIES. HISTORY OF HYPERTENSION, HYPERLIPIDEMIA, CVA WITH TREMORS A COMPLICATION. PATIENT USES A WALKER AT HOME MOST OF THE TIME. CURRENTLY PATIENT DENIES ANY FEVER, CHILLS, NAUSEA, VOMITING, CHEST PAIN, SHORTNESS OF BREATH, HEADACHE OR NECK PAIN. <Pradeep Horta MD - Last Filed: 03/03/25 19:51> Related Data Home Medications: Home Medications ?Medication ?Instructions ?Recorded ?Confirmed ?Last Taken ?Type tamsulosin 0.4 mg capsule 0.4 mg PO HS 09/18/19 01/05/25 11/13/21 History vit C 250 mg-vit E 90 mg-zinc 40 1 tablet PO BID 05/13/21 01/05/25 11/13/21 History mg-copper 1 [id number] capsule (PreserVision AREDS-2) docusate sodium 100 mg tablet 600 mg PO BID 01/07/23 01/05/25 Unknown History (Stool Softener) latanoprost 0.005 % eye drops 1 drp EACH EYE DAILY 06/01/24 01/05/25 Unknown History <Pradeep Horta MD - Last Filed: 03/03/25 19:51> Allergies/Adverse Reactions: Allergies Allergy/AdvReac Type Severity Reaction Status Date / Time pollen extracts Allergy Headache Verified 01/05/25 10:39 <Pradeep Horta MD - Last Filed: 03/03/25 19:51> Review of Systems Review of Systems: All systems reviewed & are unremarkable except as noted in HPI and below <Pradeep Horta MD - Last Filed: 03/03/25 19:51> PMFSH Past Medical History Medical History: Medical History Absolute glaucoma, bilateral BMI 22.0-22.9, adult Depression with anxiety BPH NOS w ur obs/LUTS (08/01/19) Gastroesophageal reflux disease Hx of completed stroke Prostate cancer Recurrent major depressive disorder, in full remission Type 2 diabetes mellitus without complication, with no history of insulin use (08/01/19) Stroke Hypertension Depression Atrial fibrillation <Pradeep Horta MD - Last Filed: 03/03/25 19:51> Family History Family History: Family History Mother Family history of alcoholism Family history unknown Father Malignant neoplasm of prostate Family history unknown Sibling Patient's sister is in good health Patient's brother is in good health <Pradeep Horta MD - Last Filed: 03/03/25 19:51> Social History Social History: Social History Smoking packs per day: 0.07 Smoking cigarettes per day: 1.4 Years smoked: 2 Smoking pack-years: 0.14 Smoking status: Former smoker Tobacco type: cigarettes Second hand tobacco smoke exposure: No Smoking end date: 05/01/1960 Additional smoking assessment comments: LIGHT SMOKER X2 YRS Alcohol intake: former Alcohol use details: HEAVY DRINKER/ALCOHOLIC, QUIT 1985 Substance use: never Substance use type: does not use Do You Feel Safe in your Home?: Yes Lack of Transportation: No Lack of Food: Never True Current Housing: I Have Housing Concerned About Future Housing: No Difficulty Paying Gas/Electric Bills: No Difficulty Paying for Meds: No Education: Associate Degree Difficulty w/ Childcare or Family Care: No Living arrangements: with family Additional living arrangements comments: 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 Gender identity (if verbalized by the patient): Male Spiritual care concerns: No <Pradeep Horta MD - Last Filed: 03/03/25 19:51> Exam Narrative: GENERAL APPEARANCE: WELL-DEVELOPED, WELL-NOURISHED, TREMORS SKIN: NORMAL COLOR HEAD: NORMOCEPHALIC, NONTRAUMATIC EYES: CLEAR CONJUNCTIVA ENT: OROPHARYNX NORMAL, EARS NORMAL, NOSE NORMAL NECK: SUPPLE, NONTENDER CHEST AND RESPIRATORY: AIRWAY PATENT, NO RESPIRATORY DISTRESS, NO ACCESSORY MUSCLE USE HEART: REGULAR RATE/RHYTHM ABDOMEN: SOFT, TENDERNESS RIGHT UPPER QUADRANT RIGHT LOWER RIBS ANTERIORLY AND POSTERIORLY, NO BRUISES, NO SWELLING OR RASH, NO ORGANOMEGALY, QUIET BOWEL SOUNDS VASCULAR: NORMAL PERIPHERAL PULSES, NORMAL CAPILLARY REFILL. MUSCULOSKELETAL: NORMAL RANGE OF MOTION, NONTENDER BACK NEUROLOGIC: ALERT AND ORIENTED ?3, NEWS PHOTOGRAPHER IS NORMAL TESTED, NO GROSS MOTOR DEFICIT <Pradeep Horta MD - Last Filed: 03/03/25 19:51> Course Vital Signs Vital signs: Vital Signs Temperature 36.8 C 03/03/25 14:41 Pulse Rate 93 03/03/25 14:41 Respiratory Rate 16 03/03/25 14:41 Blood Pressure 148/85 H 03/03/25 14:41 Pulse Oximetry 98 03/03/25 14:41 Temperature 36.8 C 03/03/25 14:41 Pulse Rate 89 03/03/25 16:17 Respiratory Rate 19 03/03/25 16:17 Blood Pressure 147/91 H 03/03/25 16:17 Pulse Oximetry 98 03/03/25 16:21 Oxygen Delivery Room Air 03/03/25 16:21 <Pradeep Horta MD - Last Filed: 03/03/25 19:51> Vital Signs Temperature 36.8 C 03/03/25 14:41 Pulse Rate 93 03/03/25 14:41 Respiratory Rate 16 03/03/25 14:41 Blood Pressure 148/85 H 03/03/25 14:41 Pulse Oximetry 98 03/03/25 14:41 Temperature 36.8 C 03/03/25 14:41 Pulse Rate 89 03/03/25 16:17 Respiratory Rate 19 03/03/25 16:17 Blood Pressure 147/91 H 03/03/25 16:17 Pulse Oximetry 98 03/03/25 16:21 Oxygen Delivery Room Air 03/03/25 16:21 <Zaki Marcelo MD - Last Filed: 03/03/25 20:14> MDM - Fall MDM Narrative Medical decision making narrative: PATIENT CAME WITH RIGHT LOWER RIBS AND RIGHT UPPER QUADRANT PAIN ANTERIORLY AND POSTERIORLY STATUS POST FALL 1 AND A WEEK AGO. VITAL SIGNS ARE STABLE PHYSICAL EXAMINATION CONSISTENT WITH TENDERNESS AT THE RIGHT LOWER RIBS, RIGHT UPPER QUADRANT AND RIGHT FLANK AREA. OTHERWISE WITHIN NORMAL LIMIT DIFFERENTIAL DIAGNOSIS INCLUDE RIB FRACTURE, HEPATIC INJURY, RENAL INJURY. BLOOD WORKUP TODAY INCLUDES CBC, CMP, LIPASE SHOWED NO SIGNIFICANT ABNORMALITY URINALYSIS SHOWED TRACE LEUKOCYTE ESTRACE, HEMATURIA. CT CHEST, ABDOMEN AND PELVIS WITH IV CONTRAST SHOWED MILDLY AND NONDISPLACED SEGMENTAL FRACTURE OF THE RIGHT POSTERIOR LATERAL 9TH AND 10TH RIBS RESPECTIVE. NONDISPLACED FRACTURE OF THE POSTERIOR 11TH RIB. SMALL ADJACENT PLEURAL FLUID COLLECTION LIKELY REPRESENTING A SMALL VOLUME HEMOTHORAX, CONSTIPATION. PATIENT WOULD LIKE TO BE PLACED IN A LONG TERM OR REHAB BECAUSE CANNOT TAKE THE PAIN. ADMIT OBSERVATION. <Pradeep Horta MD - Last Filed: 03/03/25 19:51> PATIENT CAME WITH RIGHT LOWER RIBS AND RIGHT UPPER QUADRANT PAIN ANTERIORLY AND POSTERIORLY STATUS POST FALL 1 AND A WEEK AGO. VITAL SIGNS ARE STABLE PHYSICAL EXAMINATION CONSISTENT WITH TENDERNESS AT THE RIGHT LOWER RIBS, RIGHT UPPER QUADRANT AND RIGHT FLANK AREA. OTHERWISE WITHIN NORMAL LIMIT DIFFERENTIAL DIAGNOSIS INCLUDE RIB FRACTURE, HEPATIC INJURY, RENAL INJURY. BLOOD WORKUP TODAY INCLUDES CBC, CMP, LIPASE SHOWED NO SIGNIFICANT ABNORMALITY URINALYSIS SHOWED TRACE LEUKOCYTE ESTRACE, HEMATURIA. CT CHEST, ABDOMEN AND PELVIS WITH IV CONTRAST SHOWED MILDLY AND NONDISPLACED SEGMENTAL FRACTURE OF THE RIGHT POSTERIOR LATERAL 9TH AND 10TH RIBS RESPECTIVE. NONDISPLACED FRACTURE OF THE POSTERIOR 11TH RIB. SMALL ADJACENT PLEURAL FLUID COLLECTION LIKELY REPRESENTING A SMALL VOLUME HEMOTHORAX, CONSTIPATION. PATIENT WOULD LIKE TO BE PLACED IN A LONG TERM OR REHAB BECAUSE CANNOT TAKE THE PAIN. ADMIT OBSERVATION. Dr. Sandoval felt the patient at this time did not warrant emergent consultation from surgery and would be available if the hospitalist service needed his services <Zaki Marcelo MD - Last Filed: 03/03/25 20:14> Differential Diagnosis Differential diagnosis: Likely other ( ABOVE) <Pradeep Horta MD - Last Filed: 03/03/25 19:51> Medical Records Attestation: I reviewed the patient's medical records. <Pradeep Horta MD - Last Filed: 03/03/25 19:51> Lab Data Attestation: I reviewed the patient's lab results. <Pradeep Horta MD - Last Filed: 03/03/25 19:51> Result diagrams: 03/03/25 16:55 03/03/25 16:55 <Pradeep Horta MD - Last Filed: 03/03/25 19:51> Labs: Lab Results 03/03/25 Range/Units 16:55 WBC 6.1 (4.5-10.0) K/mm3 RBC 3.97 L (4.6-6.20) M/mm3 Hgb 12.3 L (14.0-18.0) g/dL Hct 38.6 L (42.0-52.0) % MCV 97.2 (80-100) fl MCH 31.0 (26-34) pg MCHC 31.9 L (32-36) g/dl RDW 13.2 (11.5-14.5) % Plt Count 237 (150-375) k/mm3 MPV 8.9 (7.4-10.4) fl Immature Gran % (Auto) 0.3 (0-0.5) % Neut % (Auto) 78.5 H (45.5-73.1) % Lymph % (Auto) 14.7 L (18.3-44.2) % [place] % (Auto) 5.9 (2.6-8.5) % Eos % (Auto) 0.3 (0-4.4) % Baso % (Auto) 0.3 (0.2-1.2) % Lymph # (Auto) 0.89 L (0.9-3.2) K/mm3 [place] # (Auto) 0.4 (0.1-0.6) K/mm3 Eos # (Auto) 0.0 (0-0.3) K/mm3 Baso # (Auto) 0.0 (0.0-0.1) K/mm3 Abs Immat Gran (auto) 0.02 (0.00-0.031) K/mm3 Absolute Neuts (auto) 4.8 (1.3-6.7) K/mm3 Absolute Nucleated RBC 0.000 (0.0-0.012) K/mm3 Nucleated RBC % 0.0 (0.0-0.2) % PT 17.8 H (11.1-14.7) Seconds INR 1.4 APTT 34.2 (22.3-36.8) Seconds Sodium 139 (137-145) mmol/L Potassium 4.2 (3.4-5.0) mmol/L Chloride 102 (98-107) mmol/L Carbon Dioxide 28 (22-30) mmol/L Anion Gap 9 (4-12) mmol/L BUN 16 (9-20) mg/dL Creatinine 0.67 L (0.7-1.3) mg/dL Estim Creat Clear Calc 68 ml/min Estimated GFR > 60 (59 - ) Glucose 115 H (65-110) mg/dL Calcium 9.2 (8.4-10.2) mg/dL Total Bilirubin 0.8 (0.2-1.3) mg/dL AST 30 (17-59) U/L ALT 20 (6-50) U/L Alkaline Phosphatase 87 (38-126) U/L Total Protein 8.0 (6.3-8.2) g/dL Albumin 4.4 (3.5-5.1) g/dL Lipase 49 (23-300) U/L Urine Color Yellow (Yellow) Urine Appearance Clear (Clear) Urine pH 7.0 (5.0-9.0) Ur Specific [place] 1.021 (1.001-1.035) Urine Protein Trace (Negative) mg/dL Urine Glucose (UA) Negative (Negative) mg/dL Urine Ketones 1+ H (Negative) mg/dL Ur Blood (Man) 3+ H (Negative) Urine Nitrate Negative (Negative) Urine Bilirubin Negative (Negative) Urine Urobilinogen 2.0 H (<2.0) mg/dL Leukocyte Esterase Rfl Trace H (Negative) INOCENCIA/UL Urine RBC >100 H (0-2) /hpf Urine WBC 0-5 (0-3) /hpf Ur Squamous Epith Cells None seen (Few) /hpf Urine Bacteria None seen /hpf Urine Casts 0-2 <Pradeep Horta MD - Last Filed: 03/03/25 19:51> Lab Results 03/03/25 Range/Units 16:55 WBC 6.1 (4.5-10.0) K/mm3 RBC 3.97 L (4.6-6.20) M/mm3 Hgb 12.3 L (14.0-18.0) g/dL Hct 38.6 L (42.0-52.0) % MCV 97.2 (80-100) fl MCH 31.0 (26-34) pg MCHC 31.9 L (32-36) g/dl RDW 13.2 (11.5-14.5) % Plt Count 237 (150-375) k/mm3 MPV 8.9 (7.4-10.4) fl Immature Gran % (Auto) 0.3 (0-0.5) % Neut % (Auto) 78.5 H (45.5-73.1) % Lymph % (Auto) 14.7 L (18.3-44.2) % [place] % (Auto) 5.9 (2.6-8.5) % Eos % (Auto) 0.3 (0-4.4) % Baso % (Auto) 0.3 (0.2-1.2) % Lymph # (Auto) 0.89 L (0.9-3.2) K/mm3 [place] # (Auto) 0.4 (0.1-0.6) K/mm3 Eos # (Auto) 0.0 (0-0.3) K/mm3 Baso # (Auto) 0.0 (0.0-0.1) K/mm3 Abs Immat Gran (auto) 0.02 (0.00-0.031) K/mm3 Absolute Neuts (auto) 4.8 (1.3-6.7) K/mm3 Absolute Nucleated RBC 0.000 (0.0-0.012) K/mm3 Nucleated RBC % 0.0 (0.0-0.2) % PT 17.8 H (11.1-14.7) Seconds INR 1.4 APTT 34.2 (22.3-36.8) Seconds Sodium 139 (137-145) mmol/L Potassium 4.2 (3.4-5.0) mmol/L Chloride 102 (98-107) mmol/L Carbon Dioxide 28 (22-30) mmol/L Anion Gap 9 (4-12) mmol/L BUN 16 (9-20) mg/dL Creatinine 0.67 L (0.7-1.3) mg/dL Estim Creat Clear Calc 68 ml/min Estimated GFR > 60 (59 - ) Glucose 115 H (65-110) mg/dL Calcium 9.2 (8.4-10.2) mg/dL Total Bilirubin 0.8 (0.2-1.3) mg/dL AST 30 (17-59) U/L ALT 20 (6-50) U/L Alkaline Phosphatase 87 (38-126) U/L Total Protein 8.0 (6.3-8.2) g/dL Albumin 4.4 (3.5-5.1) g/dL Lipase 49 (23-300) U/L Urine Color Yellow (Yellow) Urine Appearance Clear (Clear) Urine pH 7.0 (5.0-9.0) Ur Specific [place] 1.021 (1.001-1.035) Urine Protein Trace (Negative) mg/dL Urine Glucose (UA) Negative (Negative) mg/dL Urine Ketones 1+ H (Negative) mg/dL Ur Blood (Man) 3+ H (Negative) Urine Nitrate Negative (Negative) Urine Bilirubin Negative (Negative) Urine Urobilinogen 2.0 H (<2.0) mg/dL Leukocyte Esterase Rfl Trace H (Negative) INOCENCIA/UL Urine RBC >100 H (0-2) /hpf Urine WBC 0-5 (0-3) /hpf Ur Squamous Epith Cells None seen (Few) /hpf Urine Bacteria None seen /hpf Urine Casts 0-2 <Zaki Marcelo MD - Last Filed: 03/03/25 20:14> Imaging Data Radiologist's impression: Impressions Chest/Abdomen/Pelvis CT 03/03/25 18:54 IMPRESSION: No acute aortic injury. Ascending thoracic aortic ectasia. Mild esophagitis/gastritis. Mildly and nondisplaced segmental fractures of the right posterolateral ninth and 10th ribs respectively. Nondisplaced fracture of the posterior 11th rib. Small adjacent pleural fluid collection likely representing a small volume hemothorax. Left UVJ and distal right ureteral calcifications causing mild ureterectasis. The rectum is mildly distended by formed stool, with mild surrounding inflammatory change, correlate for findings of constipation/fecal impaction. Early colitis is not excluded. Mild superior endplate deformity at T3, may represent acute or chronic mild compression deformity, correlate for pain/tenderness. Mild diffuse body wall edema. <Pradeep Horta MD - Last Filed: 03/03/25 19:51> Critical Care Time Critical Care Time Critical Care Time: No <Pradeep Horta MD - Last Filed: 03/03/25 19:51> Discharge Plan Discharge Clinical Impression: Closed rib fracture, Unable to ambulate <Pradeep Horta MD - Last Filed: 03/03/25 19:51> Patient Disposition: Still a Patient <Pradeep Horta MD - Last Filed: 03/03/25 19:51> Condition: Stable <Pradeep Horta MD - Last Filed: 03/03/25 19:51> Additional Instructions: ADMIT TO HOSPITALIST <Pradeep Horta MD - Last Filed: 03/03/25 19:51> Patient Language: [place] Irish <Pradeep Horta MD - Last Filed: 03/03/25 19:51> Prescriptions: No Action PreserVision AREDS-2 250-90-40-1 mg capsule 1 tablet PO BID tamsulosin 0.4 mg capsule 0.4 mg PO HS docusate sodium [Stool Softener] 100 mg tablet 600 mg PO BID latanoprost 0.005 % drops 1 drp EACH EYE DAILY Eliquis 5 mg tablet See Rx Instructions .ROUTE .COMPLEX Qty: 180 2RF Dose Instruction: TAKE 1 TABLET TWICE A DAY Rx Instructions: TAKE 1 TABLET TWICE A DAY atorvastatin 10 mg tablet See Rx Instructions .ROUTE .COMPLEX Qty: 90 2RF Dose Instruction: TAKE 1 TABLET BY MOUTH DAILY Rx Instructions: TAKE 1 TABLET BY MOUTH DAILY metformin 500 mg tablet 500 mg PO QACDINNER Qty: 90 2RF Rx Instructions: TAKE 1 TABLET BY MOUTH DAILY diltiazem HCl 180 mg capsule,extended release 24hr See Rx Instructions .ROUTE .COMPLEX Qty: 30 5RF Dose Instruction: TAKE 1 CAPSULE BY MOUTH DAILY Rx Instructions: TAKE 1 CAPSULE BY MOUTH DAILY pantoprazole 40 mg tablet,delayed release (DR/EC) See Rx Instructions .ROUTE .COMPLEX Qty: 90 3RF Dose Instruction: TAKE 1 TABLET BY MOUTH EVERY DAY Rx Instructions: TAKE 1 TABLET BY MOUTH EVERY DAY escitalopram oxalate [Lexapro] 5 mg tablet 5 mg PO DAILY Qty: 90 1RF clonazepam 0.25 mg tablet,disintegrating 0.25 mg PO BID Qty: 60 0RF <Pradeep Horta MD - Last Filed: 03/03/25 19:51> Follow-up/Referrals: Lenin Correia DO [Primary Care Provider] - <Pradeep Horta MD - Last Filed: 03/03/25 19:51>
--- NOTE | 2025-03-03 16:34 | ECG_ITS ---
Test Date: 2025-03-03 17:08:40 Measurements Intervals [place] Rate: 81 P: 0 [place]: 0 QRS: 8 QRSD: 84 T: 49 QT: 352 QTc: 410 Interpretive Statements BASELINE ARTIFACT, POOR QUALITY ECG ATRIAL FIBRILLATION POSSIBLE RIGHT VENTRICULAR CONDUCTION DELAY [RSR (QR) IN V1/V2] SEPTAL MYOCARDIAL INFARCTION , PROBABLY OLD [40+ ms Q WAVE IN V1/V2] No previous ECG available for comparison Electronically Signed On 03-05-2025 15:33:10 CDT by Zafar Bui M.D.
--- OUTSIDE RECORDS SUMMARY | 2025-03-03 16:42 | XMS_ITS | Encounter Summary ---
Author Organization [facility] Address [address] [place] [address] Care Team Providers Care Guest Relations Officer Name Role Phone Abhijeet Tom MD Primary Care Provider [phone] Encounter Details Date Type Department Care Team (Late st Contact Info) Description 09/25/[address] 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 Received: 09/25/2020 11:17 AM Pathologist: Ana Maddox MD Specimen: Skin, left mormonism 0 4:51 PM TEACHING YOUNG DERMATOPATHOLOGY LABORATORY Final Diagnosis Specimen A. 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 The specimen consists of a curettage and desiccation biopsy measuring 8x7x1 mm. Jar 0. 0 4:51 PM [facility] DERMATOPATHOLOGY LABORATORY Microscopic Description Specimen A. SKIN, left mormonism: The epidermis shows parakeratosis, full thickness disorderly maturation of keratinocytes, mitoses at different levels, and dyskeratotic cells. Focally there is a suprabasilar cleft with acantholytic cells. Additional deeper sections were obtained and reviewed. 0 4:51 PM [facility] DERMATOPATHOLOGY [facility]ORATORY Disclaimer An external and internal positive and negative controls are appropriate for the histochemical, immunohistochemical and immunofluorescence stain(s) in this case (if any), except where stated explicitly. The performance characteristics of the stain(s) cited in this report were developed and its performance characteristic determined by the Dermatopathology Laboratory at [facility], directed by Dr. Ok Woodard. These tests need not be, and therefore are not, approved by the [place] Food and Drug Administration. The tests are used for clinical purposes. Billing Codes Specimen Charges Stain Charges 08547 1 0 4:51 PM [facility] DERMATOPATHOLOGY LABORATORY Embedded Images 0 4:51 PM [facility] DERMATOPATH[facility]Y [facility]ORY Pathology/Cytolog y TISSUE SPECIMEN FROM SKIN / Unknown 09/24/2020 09/25/2020 11:17 AM [facility] Cabrera Gomez MD LAB - PATHOLOGY/CYTOLOGY ORD ERABLES Final Result DERMATOPATHOLOGY LABORATORY [facility] - Department of Dermatology [address], [address] [phone] documented in this encounter Visit Diagnoses Not on filedocumented in this encounter Care Teams Guest Relations Officer Relationship Specialty Start Date End Date Abhijeet Tom MD PCP - General 05/03/19 documented as of this encounter
--- OUTSIDE RECORDS SUMMARY | 2025-03-03 16:42 | XMS_ITS | Clinical Summary ---
Author Organization [facility] Address [address] [place] [address] Care Team Providers Care Self Propelled Mining Machine Operator Name Role Phone Abhijeet Tom MD Primary Care Provider [phone] Source Comments [facility],non-owned Affiliates and Associated Physician Practices is amultiple site organization consisting of ambulatory clinics and hospital sitesin [place], [place], [place] and [place]. This disclosure is being madepursuant to the Care Everywhere program and may not contain all information available regarding this patient. 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 Gender Identity Not on file Sexual Orientation [...] 2016 COVID-19 VACCINE (2023-2 5 season) 2024 DEPRESSION SCREENING 11/01/2024 INFLUENZA VACCINE (Season Ended) 2025 HEPATITIS B VACCINE Aged Out No longe r eligible based on patient's age to complete this topic HIB VACCINE Aged Out No longer eligi ble based on patient's age to complete this topic HPV VACCINE Aged Out No longer eligi ble based on patient's age to complete this topic MENINGOCOCCAL (Group B) VACC INE SHARED DECISION-MAKING Aged Out No longer eligibl e based on patient's age to complete this topic MENINGOCOCCAL GROUPS A/C/Y/W VACCINE Aged Out No longer eligible b ased on patient's age to complete this topic Insurance MEDICARE [facility] Care Teams Self Propelled Mining Machine Operator Relationship Specialty Start Date End Date Abhijeet Tom MD PCP - General 05/03/19
--- OUTSIDE RECORDS SUMMARY | 2025-03-03 16:42 | XMS_ITS | Encounter Summary ---
Author Organization [facility] Address [address] [place] [address] Care Team Providers Care Car Trimmer Name Role Phone Abhijeet Tom MD Primary Care Provider [phone] Encounter Details Date Type Department Care Team (Late st Contact Info) Description 11/29/2019 Lab Requisition [facility] [address] [facility] [place] [phone] Cabrera Gomez MD [address] [place] [address] Social History Tobacco Use Types Packs/Day Years Used Date Smoking Tobacco: Never Assessed Sex and Gender Information Value Date Recorded Sex Assigned at Not on file Legal Sex Male 5:59 AM GENERAL PEDIATRICIAN Gender Identity Not on file Sexual Orientation Not on file documented as of this encounter Plan of Treatment Not on file documented as of this encounter Procedures Procedure Name Priority Date/Time Associated Diagnosis Comments DERMATOPATHOLOGY Routine 11/28/2019 12:0 0 AM GENERAL PEDIATRICIAN documented in this encounter Results * DERMATOPATHOLOGY (11/28/2019 12:00 AM GENERAL PEDIATRICIAN) Case Report Dermatopathology Report Case: [id number] Authorizing Provider: Cabrera Gomez MD Collected: 11/28/2019 12:00 AM Ordering Location: [facility] Received: 11/29/2019 12:18 PM Pathologist: Jayant Woodard MD Specimen: Skin, top lat left shoulder 0 1:48 PM GENERAL PEDIATRICIAN DERMATOPATHOLOGY LABORATORY Final Diagnosis Specimen A. SKIN, top lat left shoulder: LICHEN PLANUS-LIKE KERATOSIS (BENIGN LICHENOID KERATOSIS) (L82.1) 0 1:48 PM GENERAL PEDIATRICIAN DERMATOPATHOLOGY LABORATORY Clinical History R/O HAK, BCC, Momin's, SK. 0 1:48 PM GENERAL PEDIATRICIAN DERMATOPATHOLOGY LABORATORY Gross Description Specimen A: Received is one formalin filled container labeled with the patient's name and designated top lat left shoulder. The specimen consists of a shave biopsy measuring [id number]. Jar 0. 0 1:48 PM GENERAL PEDIATRICIAN DERMATOPATHOLOGY LABORATORY Microscopic Description Specimen A. SKIN, top lat left shoulder: The epidermis is mildly acanthotic. There is a lichenoid infiltrate with vacuolar changes of basilar keratinocytes and scattered necrotic keratinocytes. 0 1:48 PM GENERAL PEDIATRICIAN DERMATOPATHOLOGY LABORATORY Disclaimer An external and internal positive and negative controls are appropriate for the histochemical, immunohistochemical and immunofluorescence stain(s) in this case (if any), except where stated explicitly. The performance characteristics of the stain(s) cited in this report were developed and its performance characteristic determined by the Dermatopathology Laboratory at [facility], directed by Dr. Ok Woodard. These tests need not be, and therefore are not, approved by the [place] Food and Drug Administration. The tests are used for clinical purposes. Billing Codes Specimen Charges Stain Charges 20738 1 0 1:48 PM GENERAL PEDIATRICIAN DERMATOPATHOLOGY LABORATORY Embedded Images 0 1:48 PM GENERAL PEDIATRICIAN DERMATOPATHOLOGY LABORATORY Pathology/Cytolog y TISSUE SPECIMEN FROM SKIN / Unknown 11/28/2019 11/29/2019 12:18 PM GENERAL PEDIATRICIAN us Cabrera Gomez MD LAB - PATHOLOGY/CYTOLOGY ORD ERABLES Final Result DERMATOPATHOLOGY LABORATORY [facility] - Department of Dermatology [address], [address] [place] [address], [facility] [phone] documented in this encounter Visit Diagnoses Not on filedocumented in this encounter Care Teams Car Trimmer Relationship Specialty Start Date End Date Abhijeet Tom MD PCP - General 05/03/19 documented as of this encounter
--- OUTSIDE RECORDS SUMMARY | 2025-03-03 16:42 | XMS_ITS | Encounter Summary ---
Author Organization [facility] Address [address] [place] [address] Care Team Providers Care Field Naturalist Name Role Phone Abhijeet Tom MD Primary Care Provider Encounter Details Date Type Department Care Team (Late st Contact Info) Description 05/03/2019 Lab Requisition [facility] [address] [place] [phone] Cabrera Gomez MD [address] [place] [address] Social History Tobacco Use Types Packs/Day Years Used Date Smoking Tobacco: Never Assessed Sex and Gender Information Value Date Recorded Sex Assigned at Not on file 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 Gender Identity Not on file Sexual Orientation Not on file documented as of this encounter Plan of Treatment Not on file documented as of this encounter Procedures Procedure Name Priority Date/Time Associated Diagnosis Comments DERMATOPATHOLOGY Routine 05/02/2019 12:0 0 AM CDT documented in this encounter Results * DERMATOPATHOLOGY (05/02/2019 12:00 AM CDT) Case Report Dermatopathology Report Case: [id number] Authorizing Provider: Cabrera Gomez MD Collected: 05/02/2019 12:00 AM Pathologist: Jayant Woodard MD Received: 05/03/2019 01:50 PM Specimen: Skin, left mormonism 12:03 PM CDT DERMATOPATHOLOGY LABORATORY Final Diagnosis Specimen A. 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 12:03 PM CDT DERMATOPATHOLOGY LABORATORY Gross Description Specimen A: Received is one formalin filled container labeled with the patient's name and designated left mormonism. The specimen consists of a shave biopsy (2 pieces) measuring [id number] & 0w9l3is. Jar 0. 12:03 PM CDT DERMATOPATHOLOGY LABORATORY Microscopic Description Specimen A. SKIN, left mormonism: Within the dermis there are aggregates of [...] characteristic determined by the Dermatopathology Laboratory at [facility], directed by Dr. Ok Woodard. These tests need not be, and therefore are not, approved by the [place] Food and Drug Administration. The tests are used for clinical purposes. Billing Codes Specimen Charges Stain Charges 95596 1 12:03 PM CDT DERMATOPATHOLOGY LABORATORY Embedded Images 12:03 PM CDT DERMATOPATHOLOGY LABORATORY Pathology/Cytolog y TISSUE SPECIMEN FROM SKIN / Unknown 05/02/2019 05/03/2019 1:50 PM CDT us Cabrera Gomez MD LAB - PATHOLOGY/CYTOLOGY ORD ERABLES Final Result DERMATOPATHOLOGY LABORATORY [facility] - Department of Dermatology [address], [address] [place] [address], [facility] [phone] documented in this encounter Visit Diagnoses Not on filedocumented in this encounter Care Teams Field Naturalist Relationship Specialty Start Date End Date Abhijeet Tom MD PCP - General 05/03/19 documented as of this encounter
--- OUTSIDE RECORDS SUMMARY | 2025-03-03 16:42 | XMS_ITS | Encounter Summary ---
Author Organization [facility] Address [address] [place] [address] Care Team Providers Care Card Maker Name Role Phone Abhijeet Tom MD Primary Care Provider [phone] Encounter Details Date Type Department Care Team (Late st Contact Info) Description 01/05/2023 Lab Requisition [facility] [address] [facility] [place] [phone] Cabrera Gomez MD [address] [place] [address] Social History Tobacco Use Types Packs/Day Years Used Date Smoking Tobacco: Never Assessed Sex and Gender Information Value Date Recorded Sex Assigned at Not on file Legal Sex Male 5:59 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 Gender Identity Not on file Sexual Orientation Not on file documented as of this encounter Plan of Treatment Not on file documented as of this encounter Procedures Procedure Name Priority Date/Time Associated Diagnosis Comments DERMATOPATHOLOGY Routine 01/04/2023 12:0 0 AM CRUDE 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 documented in this encounter Results * DERMATOPATHOLOGY (01/04/2023 12:00 AM CRUDE 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) Case Report Dermatopathology Report Case: [id number] Authorizing Provider: Cabrera Gomez MD Collected: 01/04/2023 12:00 AM Ordering Location: [facility] Received: 01/05/2023 12:32 PM Pathologist: Ana Maddox MD Specimen: Skin, right lateral cheek 11:05 AM CRUDE 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 DERMATOPATHOLOGY LABORATORY Final Diagnosis Specimen A. 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 Please Check Margins. 3 11:05 AM [facility] DERMATOPATHOLOGY LABORATORY Gross Description Specimen A: Received is one formalin filled container labeled with the patients name and designated right lateral cheek. The specimen consists of a shave removal measuring [id number] that is inked and bisected. Jar 0. 3 11:05 AM [facility] DERMATOPATHOLOGY LABORATORY Microscopic Description Specimen A. SKIN, right lateral cheek: Within the dermis there are aggregates of basaloid cells with a high nuclear to cytoplasmic ratio and peripheral palisading. This lesion is present at the base of the specimen. 11:05 AM [facility] DERMATOPATHOLOGY LABORATORY Disclaimer An external and internal positive and negative controls are appropriate for the histochemical, immunohistochemical and immunofluorescence stain(s) in this case (if any), except where stated explicitly. The performance characteristics of the stain(s) cited in this report were developed and its performance characteristic determined by the Dermatopathology Laboratory at [facility], directed by Dr. Ok Woodard. These tests need not be, and therefore are not, approved by the [place] Food and Drug Administration. The tests are used for clinical purposes. Billing Codes Specimen Charges Stain Charges 30520 1 3 11:05 AM [facility] DERMATOPATHOLOGY LABORATORY Embedded Images 3 11:05 AM [facility] DERMATOPATHOLOGY LABORATORY Pathology/Cytolog y TISSUE SPECIMEN FROM SKIN / Unknown 01/04/2023 01/05/2023 12:32 PM [facility] Cabrera Gomez MD LAB - PATHOLOGY/CYTOLOGY ORD ERABLES Final Result DERMATOPATHOLOGY LABORATORY [facility] - Department of Dermatology [address] [phone] documented in this encounter Visit Diagnoses Not on filedocumented in this encounter Care Teams Card Maker Relationship Specialty Start Date End Date Abhijeet Tom MD PCP - General 05/03/19 documented as of this encounter
[2025-03-03 17:01] LABS: Basophils Percent Auto 0.3 % (0.2-1.2); Eosinophils Percent Auto 0.3 % (0-4.4); Hematocrit 38.6 % (42.0-52.0); Hemoglobin 12.3 g/dL (14.0-18.0); Immature Granulocyte Absolute 0.02 K/mm3 (0.00-0.031); Immature Granulocyte Percent A 0.3 % (0-0.5); Lymphocytes Absolute Auto 0.89 K/mm3 (0.9-3.2); Lymphocytes Percent Auto 14.7 % (18.3-44.2); Mean Corpuscular HGB Conc 31.9 g/dl (32-36); Mean Corpuscular Volume 97.2 fl (80-100); Mean Platelet Volume 8.9 fl (7.4-10.4); Monocytes Absolute Auto 0.4 K/mm3 (0.1-0.6); Monocytes Percent Auto 5.9 % (2.6-8.5); Neutrophils Absolute Auto 4.8 K/mm3 (1.3-6.7); Neutrophils Percent Auto 78.5 % (45.5-73.1); Platelet Count Result 237 k/mm3 (150-375); Red Blood Count 3.97 M/mm3 (4.6-6.20); Red Cell Distribution Width 13.2 % (11.5-14.5); White Blood Count 6.1 K/mm3 (4.5-10.0)
[2025-03-03 17:09] LABS: Add Urine Microscopic? YES; Appearance Urine Clear (Clear); Bacteria Urine None Seen /hpf; Bilirubin Urine Negative (Negative); Blood Urine 3+ (Negative); Color Urine Yellow (Yellow); Glucose Urine UA Negative (Negative); Ketones Urine 1+ mg/dL (Negative); Leukocyte Esterase Ur Trace LEU/UL (Negative); Nitrate Urine Negative (Negative); Non Pathogenic Casts 0-2; Protein Urine Trace mg/dL (Negative); RBC Urine >100 /hpf (0-2); Specific Grav Ur 1.021 (1.001-1.035); Squamous Epithelial Cell Urine None Seen /hpf (Few); WBC Urine 0-5 /hpf (0-3)
[2025-03-03 17:11] LABS: Alanine Aminotransferase 20 U/L (6-50); Albumin Level 4.4 g/dL (3.5-5.1); Alkaline Phosphatase 87 U/L (38-126); Anion Gap 9 mmol/L (4-12); Aspartate Amino Transferase 30 U/L (17-59); Bilirubin,Total 0.8 mg/dL (0.2-1.3); Blood Urea Nitrogen 16 mg/dL (9-20); Calcium 9.2 mg/dL (8.4-10.2); Carbon Dioxide 28 mmol/L (22-30); Chloride 102 mmol/L (98-107); Estimated CRCL calculation 68 ml/min; Estimated Glomerular Filt Rate > 60; Glucose 115 mg/dL (65-110); Lipase 49 U/L (23-300); Potassium 4.2 mmol/L (3.4-5.0); Sodium 139 mmol/L (137-145)
[2025-03-03 17:13] LABS: INR 1.4; Prothrombin Time 17.8 Seconds (11.1-14.7)
[2025-03-03 17:14] LABS: Partial Thromboplastin Time 34.2 Seconds (22.3-36.8)
[2025-03-03 20:23] VITALS: BP 152/60; PULSE 87; RESP 18; O2SAT 98
--- NOTE | 2025-03-03 20:30 | PM.IMHP ---
H&P: HPI History of Present Illness Date/Time: 03/03/25 20:30 Chief Complaint: Back pain after a fall. Narrative: This is an 84-year-old male with history of stroke, atrial fibrillation on anticoagulation, hypertension, dyslipidemia, type 2 diabetes mellitus, hypertension, dyslipidemia, gastroesophageal reflux disease, benign prostatic hyperplasia, and prostate cancer status post radiation who presented to the emergency department via private vehicle for evaluation of back pain after a fall. About one week ago he missed a step walking into the garage and fell forward down two steps, landing on his right side. He has been complaining of pain in the right lower back since that time and it has gotten worse the last day or so and he is now having discomfort over the right anterolateral ribs. He is now having difficulties ambulating due to the pain. He denies head trauma and loss of consciousness in the fall and does not have any complaints of pain anywhere else aside from the back and flank. He also denies fever, chills, sweats, cold and flu symptoms, chest pain, pleuritic pain, palpitations, orthopnea, paroxysmal nocturnal dyspnea, productive cough, abdominal pain, nausea, vomiting, diarrhea, dysuria, urine retention, bowel incontinence, saddle anesthesia, focal weakness, and paresthesias. In the ED: Vital signs were stable on arrival. Labs were significant for hemoglobin of 12.3, hematocrit 30.6%, INR 1.4, glucose 115. Urinalysis was positive for 1+ ketones, 3+ blood, trace leukocyte esterase, greater than 100 RBC, and [address] of the chest, abdomen, and pelvis demonstrated nondisplaced right posterolateral 9th, 10th, and 11th rib fractures with a small adjacent pleural fluid collection likely representing small volume hemothorax and mild superior endplate deformity at T3 which may represent acute or chronic mild compression deformity as well as some other incidental findings. I requested the ED physician speak with trauma as I was concerned for possible delayed hemothorax given the patient's increasing pain and findings of small volume hemothorax near a posterior rib fracture; he is also on apixaban. General surgery was contacted instead and felt that the case did not warrant consultation as the fall was a week ago and no recommendations were given. Review of Systems Review of Systems: 12 systems were reviewed and are negative except for as per HPI. [facility] Past Medical History Medical History (Updated 03/04/25 @ 00:37 by Chapis Sands PA-C) Kidney stones Chronic anticoagulation Benign prostatic hyperplasia Absolute glaucoma, bilateral BMI 22.0-22.9, adult Depression with anxiety Gastroesophageal reflux disease Prostate cancer completed radiation treatments in [id number] Type 2 diabetes mellitus without complication, with no history of insulin use (08/01/19) Stroke Hypertension Atrial fibrillation Surgical History Surgical History (Updated 03/03/25 @ 20:48 by Chapis Sands PA-C) History of Mohs micrographic surgery for skin cancer History of tonsillectomy History of cataract extraction with lens replacement History of bilateral inguinal hernia repair Family History Family History Mother Family history of alcoholism Family history unknown Father Malignant neoplasm of prostate Family history unknown Sibling Patient's sister is in good health Patient's brother is in good health Social History Social History (Updated 03/04/25 @ 00:32 by Chapis Sands PA-C) Social History: Surrogate medical decision maker: Leyda Conteh, spouse. Code status: Full code. Smoking packs per day: 0.07 Smoking cigarettes per day: 1.4 Years smoked: 2 Smoking pack-years: 0.14 Smoking status: Former smoker Second hand tobacco smoke exposure: No Additional smoking assessment comments: Light smoker for 2 years. Alcohol intake: former Alcohol use details: Previous heavy drinker, quit in 1985. Substance use: never Substance use type: does not use Do You Feel Safe in your Home?: Yes Lack of Transportation: No Lack of Food: Never True Current Housing: I Have Housing Concerned About Future Housing: No Difficulty Paying Gas/Electric Bills: No Difficulty Paying for Meds: No Currently Unemployed: No Education: Associate Degree Difficulty w/ Childcare or Family Care: No Living arrangements: with family Additional living arrangements comments: Lives with spouse in [place]. 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 Spiritual care concerns: No Meds Home Medications and Allergies Home Medications ?Medication ?Instructions ?Recorded ?Confirmed ?Type tamsulosin 0.4 mg capsule 0.4 mg PO HS 09/18/19 03/03/25 History vit C 250 mg-vit E 90 mg-zinc 40 1 tablet PO BID 05/13/21 03/03/25 History mg-copper 1 [id number] capsule (PreserVision AREDS-2) docusate sodium 100 mg tablet 600 mg PO BID 01/07/23 03/03/25 History (Stool Softener) apixaban 5 mg tablet (Eliquis) See Rx Instructions .Route 02/14/24 03/03/25 Rx .COMPLEX #180 tabs latanoprost 0.005 % eye drops 1 drp EACH EYE DAILY 06/01/24 03/03/25 History atorvastatin 10 mg tablet See Rx Instructions .Route 06/26/24 03/03/25 Rx .COMPLEX #90 tabs metformin 500 mg tablet 500 mg PO QACDINNER #90 tabs 10/02/24 03/03/25 Rx diltiazem HCl 180 mg See Rx Instructions .Route 01/29/25 03/03/25 Rx capsule,extended release 24 hr .COMPLEX #30 caps pantoprazole 40 mg tablet,delayed See Rx Instructions .Route 01/30/25 03/03/25 Rx release .COMPLEX #90 tabs escitalopram oxalate 5 mg tablet 5 mg PO DAILY #90 tabs 02/19/25 03/03/25 Rx (Lexapro) clonazepam 0.25 mg disintegrating 0.25 mg PO BID #60 tabs 02/28/25 03/03/25 Rx tablet fluticasone propionate 50 1 spray intranasal Q12H PRN nasal 03/03/25 03/03/25 History mcg/actuation nasal congestion spray,suspension Allergies Allergy/AdvReac Type Severity Reaction Status Date / Time pollen extracts Allergy Headache Verified 01/05/25 10:39 Vital Signs Vital Signs - 24 hr 03/03/25 14:41 03/03/25 16:17 03/03/25 16:21 Temperature 98.2 F Pulse Rate 93 89 Respiratory Rate 16 19 Blood Pressure 148/85 H 147/91 H Pulse Oximetry 98 98 98 Oxygen Delivery Room Air 03/03/25 20:23 Temperature Pulse Rate 87 Respiratory Rate 18 Blood Pressure 152/60 H Pulse Oximetry 98 Oxygen Delivery Exam Narrative: General: Thin, frail elderly appearing gentleman sitting up in bed in no acute distress. Weight: 67 kg. BMI: 21.2. HEENT: PERRL, EOMI. Sclera anicteric. Tacky mucous membranes. Neck: Supple. Respiratory: Coughs intermittently. Scattered coarse rhonchi which improved with cough. Cardiovascular: Irregularly irregular rate and rhythm with S1-S2. Gastrointestinal: Abdomen is soft, nontender, and nondistended with positive bowel sounds. Skin: Warm and dry. No rash or lesions on limited exam. Extremities: No cyanosis, clubbing, or significant edema. Radial and pedal pulses intact. Spine: No midline vertebral tenderness. Neurovascular intact in the lower extremities. Musculoskeletal: He is tender to palpation over the lower ribs posterior and anterolaterally. No bruising noted. Neurological: Alert. Cranial nerves 2-12 are grossly intact. Tremors of the upper extremity. Generalized weakness without gross focal findings. Psychiatric: Pleasant and cooperative with appropriate mood and affect. H&P: Results Labs Labs: Short CBC 03/03/25 Range/Units 16:55 WBC 6.1 (4.5-10.0) K/mm3 Hgb 12.3 L (14.0-18.0) g/dL Hct 38.6 L (42.0-52.0) % Plt Count 237 (150-375) k/mm3 BMP 03/03/25 16:55 Sodium 139 Potassium 4.2 Chloride 102 Carbon Dioxide 28 BUN 16 Creatinine 0.67 L Glucose 115 H Calcium 9.2 Liver Function 03/03/25 Range/Units 16:55 Total Bilirubin 0.8 (0.2-1.3) mg/dL AST 30 (17-59) U/L ALT 20 (6-50) U/L Alkaline Phosphatase 87 (38-126) U/L Albumin 4.4 (3.5-5.1) g/dL Urine 03/03/25 Range/Units 16:55 Urine Color Yellow (Yellow) Urine Appearance Clear (Clear) Urine pH 7.0 (5.0-9.0) Ur Specific [place] 1.021 (1.001-1.035) Urine Protein Trace (Negative) mg/dL Urine Glucose (UA) Negative (Negative) mg/dL Impressions Chest/Abdomen/Pelvis CT 03/03/25 18:54 IMPRESSION: No acute aortic injury. Ascending thoracic aortic ectasia. Mild esophagitis/gastritis. Mildly and nondisplaced segmental fractures of the right posterolateral ninth and 10th ribs respectively. Nondisplaced fracture of the posterior 11th rib. Small adjacent pleural fluid collection likely representing a small volume hemothorax. Left UVJ and distal right ureteral calcifications causing mild ureterectasis. The rectum is mildly distended by formed stool, with mild surrounding inflammatory change, correlate for findings of constipation/fecal impaction. Early colitis is not excluded. Mild superior endplate deformity at T3, may represent acute or chronic mild compression deformity, correlate for pain/tenderness. Mild diffuse body wall edema. Assessment and Plan Assessment and plan (1) Right rib fracture: Code(s): S22.31XA - Fracture of one rib, right side, initial encounter for closed fracture Status: Acute (2) Hemothorax on right: Code(s): J94.2 - Hemothorax Status: Acute (3) Compression fracture of T3 vertebra: Code(s): S22.030A - Wedge compression fracture of third thoracic vertebra, initial encounter for closed fracture Status: Acute (4) Hypertension: Qualifiers: Hypertension type: primary hypertension Qualified Code(s): I10 - Essential (primary) hypertension Code(s): I10 - Essential (primary) hypertension Status: Acute (5) Atrial fibrillation: Code(s): I48.91 - Unspecified atrial fibrillation Status: Acute (6) Benign prostatic hyperplasia: Code(s): N40.0 - Benign prostatic hyperplasia without lower urinary tract symptoms Status: Acute (7) Chronic anticoagulation: Code(s): Z79.01 - long term acute care registered nurse (current) use of anticoagulants Status: Acute (8) Type 2 diabetes mellitus: Code(s): E11.9 - Type 2 diabetes mellitus without complications Status: Acute Plan The patient presented to the emergency department for evaluation of increasing right low back and flank pain after falling down 2 stairs last week as detailed in HPI. Labs, imaging, EKG, and all reports were personally reviewed. Chest CT showed mildly nondisplaced fractures of the right posterolateral 9th and 10th ribs and nondisplaced fracture of the posterior 11th rib with small adjacent pleural fluid collection likely representing a small volume hemothorax. It was requested that the ED physician speak with trauma surgery regarding concerns for possible delayed hemothorax in a patient on anticoagulation. General surgery was contacted instead and they did not feel that any consultation was necessary as this was a week old. Nonetheless, we will hold apixaban for now and repeat chest/rib x-rays tomorrow to ensure stability. Depending on his clinical picture, a repeat CT scan may be appropriate. There is no midline vertebral tenderness over the thoracic or lumbar vertebra and T3 compression fracture is probably old. He will need PT evaluation once his pain is under better control and may need rehab before returning home. Analgesics available as needed. Encourage incentive spirometry. He is chronically in atrial fibrillation is rate controlled. His blood pressures have been running a bit high, likely due to pain, and will be monitored closely. Initiate sliding scale insulin, Accu-Cheks, and hypoglycemic protocol. His home medications will be reviewed and resumed as appropriate. Findings and treatment plan were discussed with the patient. Questions were solicited and answered to satisfaction. The patient's medical management will be taken over by the hospitalist team in a.m. Quality VTE Prophylaxis VTE prophylaxis: mechanical ordered If No VTE Prophylaxis Answer both mechanical and pharmacologic: Reason no pharmacologic proph: medical contraindication (small hemothorax, fall risk) The patient has been admitted under observation status. Hospitalist [facility] Advance Care Plan I have confirmed that the patient's Advanced Care Plan is present, code status is documented, or surrogate decision maker is listed in patient medical record.: Yes Medication Reconciliation I have utilized all available resources to obtain, update and review the patients current medications (includes all prescriptions, OTC, herbals, cannabis, and nutritional supplements).: Yes
[2025-03-03 21:30] VITALS: BMI 21.2
[2025-03-03 21:45] VITALS: BP 179/78; PULSE 81; RESP 16; TEMP 36.9; O2SAT 98
[2025-03-03] MEDS: ACETAMINOPHEN 325 MG TABLET 650 MG PO (21:47)
--- NOTE | 2025-03-03 21:55 | ADMGEN ---
This patient, Cholo Conteh Jr., was admitted to Medical Room 244-. Patient/family oriented to hospital policies and general routines including ID bracelet, bed and alarms, visiting hours, pain management, procedures, bathroom and other care routines, personal items, smoking policy, room service/diet, and visiting hours. Information on how to activate the Rapid Response Team has been discussed. Patient/Family are encouraged to report perceived risks to care and to ask questions if they do not understand what they are told or what they should do.
--- NOTE | 2025-03-03 22:02 | PC.NURSE ---
Patients spouse was continuously coming to the nurses station to ask questions, would ask can you please come in here right away and I need you to come explain things to us again After multiple lengthy conversations in the room with both patient and spouse they seem to have all of their questions answered. went over the medications that the patient takes, and discussed that the hospital has all medications that he needs and that he does not need to have his home medications here to take. Patient was concerned about taking morphine because it's addictive and he has a history with alcohol abuse with years of sobriety. discussed that while it's a narcotic it's safe to use for pain when you need it. Stated that I would pass on this information and see if we could try something else for pain. spouse went over the need for clonazepam in the morning, and eye drops at night. these medications are present on the patients home medications list. Spouse very anxious about plan of care during hospital stay- questioning who she will meet with, who will help decide other plans and where he will go to get stronger. Discussed that he will have a whole care team that will work together and communicate with both her and him throughout his hospital stay. Encouraged patients spouse to go home and get some rest and that she needs to care for herself while we take care of him.
[2025-03-03 22:09] VITALS: PULSE 87; RESP 18; O2SAT 98
[2025-03-04] VITALS (7 sets, daily range): BP systolic 127–176; BP diastolic 74–88; PULSE 75–85; RESP 16–18; TEMP 36.2–37.3; O2SAT 96–100
[2025-03-04] MEDS: TAMSULOSIN HCL 0.4 MG CAPSULE PO ×2 (00:15→20:04)
[2025-03-04] MEDS: LATANOPROST 0.005% OP SOLN 2.5 ML BTL 1 DROP EACH EYE ×2 (00:45→20:05)
[2025-03-04 05:37] LABS: Anion Gap 8 mmol/L (4-12); Blood Urea Nitrogen 16 mg/dL (9-20); Calcium 8.9 mg/dL (8.4-10.2); Carbon Dioxide 27 mmol/L (22-30); Chloride 102 mmol/L (98-107); Estimated CRCL calculation 75 ml/min; Estimated Glomerular Filt Rate > 60; Glucose 98 mg/dL (65-110); Magnesium 1.8 mg/dL (1.6-2.3); Potassium 3.6 mmol/L (3.4-5.0); Sodium 137 mmol/L (137-145)
[2025-03-04 07:56] LABS: Glucose Point of Care 118 mg/dl (65-105)
[2025-03-04] MEDS: OPTI-GEN TAB 1 TABLET PO ×2 (08:23→16:03)
[2025-03-04] MEDS: clonazePAM (*CRX) 0.25 MG TABLET PO ×2 (08:23→16:03)
[2025-03-04] MEDS: ATORVASTATIN 10 MG TABLET BY MOUTH (08:23)
[2025-03-04] MEDS: DOCUSATE SODIUM 100 MG CAPSULE PO ×2 (08:23→16:03)
[2025-03-04] MEDS: PANTOPRAZOLE 40 MG TABLET BY MOUTH (08:23)
[2025-03-04] MEDS: guaiFENesin 12 HR 600 MG TABCR 1200 MG PO ×2 (08:23→20:05)
[2025-03-04] MEDS: dilTIAZem HCL CD 180 MG CAP.24HR BY MOUTH (08:24)
[2025-03-04] MEDS: ESCITALOPRAM OXALATE 5 MG TABLET PO (08:24)
[2025-03-04] MEDS: LIDOCAINE 5% PATCH 1 PATCH TRANSDERM (08:25)
--- NOTE | 2025-03-04 08:54 | PM.IMPN ---
Progress Note: A&P Assessment and Plan (1) Right rib fracture: Code(s): S22.31XA - Fracture of one rib, right side, initial encounter for closed fracture Status: Acute (2) Hemothorax on right: Code(s): J94.2 - Hemothorax Status: Acute (3) Compression fracture of T3 vertebra: Code(s): S22.030A - Wedge compression fracture of third thoracic vertebra, initial encounter for closed fracture Status: Acute (4) Hypertension: Qualifiers: Hypertension type: primary hypertension Qualified Code(s): I10 - Essential (primary) hypertension Code(s): I10 - Essential (primary) hypertension Status: Acute (5) Atrial fibrillation: Code(s): I48.91 - Unspecified atrial fibrillation Status: Acute (6) Benign prostatic hyperplasia: Code(s): N40.0 - Benign prostatic hyperplasia without lower urinary tract symptoms Status: Acute (7) Chronic anticoagulation: Code(s): Z79.01 - snf (current) use of anticoagulants Status: Acute (8) Type 2 diabetes mellitus: Code(s): E11.9 - Type 2 diabetes mellitus without complications Status: Acute Plan Right rib fracture patient appears comfortable at bedside CT Chest and AP, showed non displaced segmental fractures of the right posterolateral 9th adn 10th ribs respecttively with small adjacent pleural fluid collection and distended rectum by formed stool PRN pain control Constipation CT AP reviewed Daily Miralax, dulcolax and adjust with clinical course monitor Compression T3 compression fracture continue PRN pain control IR consult if pain not control Right hemathorax Small per CT hold Eliquis for now and monitor HTN Titrate home meds with clinical course Afib Continue Rate control Eliquis on hold now DM2 SSI with accucheks adjust clinical course DVT prophylaxis on SCDs, Eliquis on hold due to hemathorax Subjective Date/time seen: 03/04/25 08:54 Interval history: Comfortable at bedside PT/OT eval Review of Systems Review of Systems: 12 systems were reviewed and are negative except for as per HPI. Exam Narrative: General: Thin, frail elderly appearing gentleman sitting up in bed in no acute distress. Weight: 67 kg. BMI: 21.2. HEENT: PERRL, EOMI. Sclera anicteric. Tacky mucous membranes. Neck: Supple. Respiratory: Coughs intermittently. Scattered coarse rhonchi which improved with cough. Cardiovascular: Irregularly irregular rate and rhythm with S1-S2. Gastrointestinal: Abdomen is soft, nontender, and nondistended with positive bowel sounds. Skin: Warm and dry. No rash or lesions on limited exam. Extremities: No cyanosis, clubbing, or significant edema. Radial and pedal pulses intact. Spine: No midline vertebral tenderness. Neurovascular intact in the lower extremities. Musculoskeletal: He is tender to palpation over the lower ribs posterior and anterolaterally. No bruising noted. Neurological: Alert. Cranial nerves 2-12 are grossly intact. Tremors of the upper extremity. Generalized weakness without gross focal findings. Psychiatric: Pleasant and cooperative with appropriate mood and affect. Objective Data Vital Signs Vital Signs: Vital Signs - 24 hr 03/03/25 14:41 03/03/25 16:17 03/03/25 16:21 Temperature 98.2 F Pulse Rate 93 89 Respiratory Rate 16 19 Blood Pressure 148/85 H 147/91 H Pulse Oximetry 98 98 98 Oxygen Delivery Room Air 03/03/25 20:23 03/03/25 21:45 03/03/25 22:09 Temperature 98.5 F Pulse Rate 87 81 87 Respiratory Rate 18 16 18 Blood Pressure 152/60 H 179/78 H Pulse Oximetry 98 98 98 Oxygen Delivery Room Air 03/04/25 06:00 03/04/25 08:22 03/04/25 08:23 Temperature 98.7 F 97.1 F L Pulse Rate 76 82 Respiratory Rate 16 16 Blood Pressure 138/88 176/76 H Pulse Oximetry 99 99 99 Oxygen Delivery Room Air Meds/Results Medications: Active Medications Generic Name Dose Route Start Last Admin Trade Name Freq PRN Reason Stop Dose Admin Acetaminophen 650 mg 03/03/25 19:46 03/03/25 21:47 Acetaminophen 325 Mg Tablet PO 650 mg Q4H PRN Administration Mild Pain (1-3) or Fever Atorvastatin Calcium 10 mg 03/04/25 09:00 03/04/25 08:23 Atorvastatin 10 Mg Tablet BY MOUTH 10 mg DAILY JOSH Administration Clonazepam 0.25 mg 03/04/25 09:00 03/04/25 08:23 Clonazepam (*Crx) 0.25 Mg Tablet PO 0.25 mg BID JOSH Administration Dextrose 12.5 gm 03/04/25 00:43 Dextrose 50% 25 Gm/50 Ml Syringe IV PUSH PRN PRN Hypoglycemia Protocol Diclofenac Sodium 75 mg 03/04/25 07:51 Diclofenac Sod 75 Mg Tablet.Ec PO BIDWM PRN Pain Rated 4-6 Diltiazem HCl 180 mg 03/04/25 09:00 03/04/25 08:24 Diltiazem Hcl Cd 180 Mg Cap.24hr BY MOUTH 180 mg DAILY JOSH Administration Docusate Sodium 100 mg 03/04/25 09:00 03/04/25 08:23 Docusate Sodium 100 Mg Capsule PO 100 mg BID JOSH Administration Escitalopram Oxalate 5 mg 03/04/25 09:00 03/04/25 08:24 Escitalopram Oxalate 5 Mg Tablet PO 5 mg DAILY JOSH Administration Fluticasone Propionate 1 spray 03/03/25 23:40 Fluticasone Propionate 0.05% Na Spr 16 Gm Btl (*Bkc) NASAL Q12H PRN nasal congestion Glucagon 1 mg 03/04/25 00:43 Glucagon For Inj 1 Mg Vial IM PRN PRN Hypoglycemia Protocol Glucose 15 gm 03/04/25 00:43 Glucose Oral Gel 15 Gm Of Glucse In 37.5 Gm Tube PO PRN PRN Hypoglycemia Protocol Guaifenesin 1,200 mg 03/04/25 09:00 03/04/25 08:23 Guaifenesin 12 Hr 600 Mg Tabcr PO 1,200 mg Q12HR JOSH Administration Dextrose 1,000 mls @ 100 mls/hr 03/04/25 00:43 Dextrose 5% 1,000 Ml IVPB PRN PRN Hypoglycemia Protocol Insulin Aspart 2 - 5 units 03/04/25 08:00 Insulin Aspart (*Bkc) 100 Units/Ml SUB-Q TIDWM JOSH Protocol Insulin Aspart 1 - 2 units 03/04/25 21:00 Insulin Aspart (*Bkc) 100 Units/Ml SUB-Q HS [facility] Protocol Latanoprost 1 drop 03/04/25 00:30 03/04/25 00:45 Latanoprost 0.005% Op Soln 2.5 Ml Btl EACH EYE 1 drop QHS JOSH Administration Lidocaine 1 patch 03/04/25 09:00 03/04/25 08:25 Lidocaine 5% Patch TRANSDERM 1 patch DAILY JOSH Administration Morphine Sulfate 2 mg 03/04/25 00:44 Morphine Sulfate (*Crx) 2 Mg/Ml Inj IV PUSH Q4H PRN Pain Rated 7-10 Multivitamins/Minerals 1 tablet 03/04/25 09:00 03/04/25 08:23 Opti-Gen Tab PO 1 tablet BID JOSH Administration Ondansetron HCl 4 mg 03/03/25 19:46 Ondansetron Inj 4 Mg/2 Ml Vial IV PUSH Q4H PRN Nausea Pantoprazole Sodium 40 mg 03/04/25 09:00 03/04/25 08:23 Pantoprazole 40 Mg Tablet BY MOUTH 40 mg DAILY JOSH Administration Tamsulosin HCl 0.4 mg 03/03/25 23:50 03/04/25 00:15 Tamsulosin Hcl 0.4 Mg Capsule PO 0.4 mg HS JOSH Administration Radiology Results: ITS Impressions Chest/Abdomen/Pelvis CT 03/03/25 18:54 IMPRESSION: No acute aortic injury. Ascending thoracic aortic ectasia. Mild esophagitis/gastritis. Mildly and nondisplaced segmental fractures of the right posterolateral ninth and 10th ribs respectively. Nondisplaced fracture of the posterior 11th rib. Small adjacent pleural fluid collection likely representing a small volume hemothorax. Left UVJ and distal right ureteral calcifications causing mild ureterectasis. The rectum is mildly distended by formed stool, with mild surrounding inflammatory change, correlate for findings of constipation/fecal impaction. Early colitis is not excluded. Mild superior endplate deformity at T3, may represent acute or chronic mild compression deformity, correlate for pain/tenderness. Mild diffuse body wall edema. Labs Labs: Laboratory Results - last 24 hr 03/03/25 03/04/25 03/04/25 16:55 04:32 07:53 WBC 6.1 RBC 3.97 L Hgb 12.3 L Hct 38.6 L MCV 97.2 MCH 31.0 MCHC 31.9 L RDW 13.2 Plt Count 237 MPV 8.9 Immature Gran % (Auto) 0.3 Neut % (Auto) 78.5 H Lymph % (Auto) 14.7 L [place] % (Auto) 5.9 Eos % (Auto) 0.3 Baso % (Auto) 0.3 Lymph # (Auto) 0.89 L [place] # (Auto) 0.4 Eos # (Auto) 0.0 Baso # (Auto) 0.0 Abs Immat Gran (auto) 0.02 Absolute Neuts (auto) 4.8 Absolute Nucleated RBC 0.000 Nucleated RBC % 0.0 PT 17.8 H INR 1.4 APTT 34.2 Sodium 139 137 Potassium 4.2 3.6 Chloride 102 102 Carbon Dioxide 28 27 Anion Gap 9 8 BUN 16 16 Creatinine 0.67 L 0.60 L Estim Creat Clear Calc 68 75 Estimated GFR > 60 > 60 Glucose 115 H 98 POC Capillary Glucose 118 H Calcium 9.2 8.9 Magnesium 1.8 Total Bilirubin 0.8 AST 30 ALT 20 Alkaline Phosphatase 87 Total Protein 8.0 Albumin 4.4 Lipase 49 Urine Color Yellow Urine Appearance Clear Urine pH 7.0 Ur Specific [place] 1.021 Urine Protein Trace Urine Glucose (UA) Negative Urine Ketones 1+ H Ur Blood (Man) 3+ H Urine Nitrate Negative Urine Bilirubin Negative Urine Urobilinogen 2.0 H Leukocyte Esterase Rfl Trace H Urine RBC >100 H Urine WBC 0-5 Ur Squamous Epith Cells None seen Urine Bacteria None seen Urine Casts 0-2 Quality VTE Prophylaxis VTE prophylaxis: mechanical ordered
[2025-03-04 12:33] LABS: Glucose Point of Care 89 mg/dl (65-105)
[2025-03-04] MEDS: BISACODYL 5 MG TABLET EC PO (13:41)
[2025-03-04 17:00] LABS: Glucose Point of Care 136 mg/dl (65-105)
[2025-03-04] MEDS: ACETAMINOPHEN 325 MG TABLET 650 MG PO (18:16)
[2025-03-04 19:37] LABS: Glucose Point of Care 179 mg/dl (65-105)
[2025-03-04] MEDS: MELATONIN 5 MG TABLET PO (20:05)
[2025-03-05] VITALS (7 sets, daily range): BP systolic 138–176; BP diastolic 74–92; PULSE 61–97; RESP 14–18; TEMP 36.6–37; O2SAT 94–98
[2025-03-05] MEDS: QUEtiapine FUMARATE 25 MG TABLET 50 MG PO (01:40)
[2025-03-05 05:07] LABS: Hemoglobin A1C 6.1 % (<5.7)
[2025-03-05] MEDS: MORPHINE SULFATE (*CRX) 2 MG/ML INJ IV PUSH (06:31)
[2025-03-05] MEDS: ONDANSETRON INJ 4 MG/2 ML VIAL IV PUSH (06:32)
[2025-03-05 08:03] LABS: Glucose Point of Care 115 mg/dl (65-105)
[2025-03-05 09:18] LABS: Basophils Percent Auto 0.5 % (0.2-1.2); Eosinophils Absolute Auto 0.1 K/mm3 (0-0.3); Eosinophils Percent Auto 1.5 % (0-4.4); Hematocrit 38.6 % (42.0-52.0); Hemoglobin 12.4 g/dL (14.0-18.0); Immature Granulocyte Absolute 0.02 K/mm3 (0.00-0.031); Immature Granulocyte Percent A 0.3 % (0-0.5); Lymphocytes Absolute Auto 1.15 K/mm3 (0.9-3.2); Lymphocytes Percent Auto 19.6 % (18.3-44.2); Mean Corpuscular HGB Conc 32.1 g/dl (32-36); Mean Corpuscular Volume 96.5 fl (80-100); Mean Platelet Volume 9.5 fl (7.4-10.4); Monocytes Absolute Auto 0.5 K/mm3 (0.1-0.6); Monocytes Percent Auto 7.8 % (2.6-8.5); Neutrophils Absolute Auto 4.1 K/mm3 (1.3-6.7); Neutrophils Percent Auto 70.3 % (45.5-73.1); Platelet Count Result 253 k/mm3 (150-375); Red Cell Distribution Width 13.3 % (11.5-14.5); White Blood Count 5.9 K/mm3 (4.5-10.0)
[2025-03-05 09:40] LABS: Alanine Aminotransferase 18 U/L (6-50); Albumin Level 3.8 g/dL (3.5-5.1); Alkaline Phosphatase 83 U/L (38-126); Anion Gap 7 mmol/L (4-12); Aspartate Amino Transferase 43 U/L (17-59); Bilirubin,Total 0.9 mg/dL (0.2-1.3); Blood Urea Nitrogen 13 mg/dL (9-20); Carbon Dioxide 28 mmol/L (22-30); Chloride 105 mmol/L (98-107); Estimated CRCL calculation 74 ml/min; Estimated Glomerular Filt Rate > 60; Glucose 106 mg/dL (65-110); Potassium 3.6 mmol/L (3.4-5.0); Sodium 140 mmol/L (137-145)
[2025-03-05 11:27] LABS: Glucose Point of Care 125 mg/dl (65-105)
--- NOTE | 2025-03-05 11:37 | PM.IMPN ---
Progress Note: A&P Assessment and Plan (1) Right rib fracture: Code(s): S22.31XA - Fracture of one rib, right side, initial encounter for closed fracture Status: Acute (2) Hemothorax on right: Code(s): J94.2 - Hemothorax Status: Acute (3) Compression fracture of T3 vertebra: Code(s): S22.030A - Wedge compression fracture of third thoracic vertebra, initial encounter for closed fracture Status: Acute (4) Hypertension: Qualifiers: Hypertension type: primary hypertension Qualified Code(s): I10 - Essential (primary) hypertension Code(s): I10 - Essential (primary) hypertension Status: Acute (5) Atrial fibrillation: Code(s): I48.91 - Unspecified atrial fibrillation Status: Acute (6) Benign prostatic hyperplasia: Code(s): N40.0 - Benign prostatic hyperplasia without lower urinary tract symptoms Status: Acute (7) Chronic anticoagulation: Code(s): Z79.01 - USP (current) use of anticoagulants Status: Acute (8) Type 2 diabetes mellitus: Code(s): E11.9 - Type 2 diabetes mellitus without complications Status: Acute Plan Delirium Patient was noted to have agitated overnight and was unable to sleep until this morning Delirium precautions Nighttime Seroquel 25mg po monitor Right rib fracture patient appears comfortable at bedside CT Chest and AP, showed non displaced segmental fractures of the right posterolateral 9th adn 10th ribs respecttively with small adjacent pleural fluid collection and distended rectum by formed stool PRN pain control Constipation CT AP reviewed Daily Miralax, dulcolax and adjust with clinical course monitor Compression T3 compression fracture continue PRN pain control IR consult if pain not control Right hemathorax Small per CT hold Eliquis for now and monitor HTN Titrate home meds with clinical course Afib Continue Rate control Eliquis on hold now DM2 SSI with accucheks adjust clinical course DVT prophylaxis on SCDs, Eliquis on hold due to hemathorax PT/OT and administrator health care facility Subjective Date/time seen: 03/05/25 11:37 Interval history: Comfortable at bedside PT/OT eval Review of Systems Review of Systems: 12 systems were reviewed and are negative except for as per HPI. Exam Narrative: General: Thin, frail elderly appearing gentleman sitting up in bed in no acute distress. Weight: 67 kg. BMI: 21.2. HEENT: PERRL, EOMI. Sclera anicteric. Tacky mucous membranes. Neck: Supple. Respiratory: Coughs intermittently. Scattered coarse rhonchi which improved with cough. Cardiovascular: Irregularly irregular rate and rhythm with S1-S2. Gastrointestinal: Abdomen is soft, nontender, and nondistended with positive bowel sounds. Skin: Warm and dry. No rash or lesions on limited exam. Extremities: No cyanosis, clubbing, or significant edema. Radial and pedal pulses intact. Spine: No midline vertebral tenderness. Neurovascular intact in the lower extremities. Musculoskeletal: He is tender to palpation over the lower ribs posterior and anterolaterally. No bruising noted. Neurological: Alert. Cranial nerves 2-12 are grossly intact. Tremors of the upper extremity. Generalized weakness without gross focal findings. Psychiatric: Pleasant and cooperative with appropriate mood and affect. Objective Data Vital Signs Vital Signs: Vital Signs - 24 hr 03/04/25 13:37 03/04/25 14:00 03/04/25 20:00 Temperature 98.1 F 98.2 F Pulse Rate 75 80 80 Respiratory Rate 18 18 18 Blood Pressure 127/85 145/87 H Pulse Oximetry 96 98 98 Oxygen Delivery Room Air 03/04/25 22:00 03/05/25 06:00 03/05/25 09:09 Temperature 99.1 F Pulse Rate 85 Respiratory Rate 16 18 Blood Pressure 138/74 Pulse Oximetry 100 95 Oxygen Delivery Room Air 03/05/25 09:35 03/05/25 11:19 Temperature 97.9 F Pulse Rate 84 Respiratory Rate 14 Blood Pressure 176/80 H Pulse Oximetry 94 95 Oxygen Delivery Room Air Intake/Output Intake/Output: Intake & Output 03/02/25 03/03/25 03/04/25 03/05/25 23:59 23:59 23:59 23:59 Intake Total 640 Output Total 1425 Balance -785 Meds/Results Medications: Active Medications Generic Name Dose Route Start Last Admin Trade Name Freq PRN Reason Stop Dose Admin Acetaminophen 650 mg 03/03/25 19:46 03/04/25 18:16 Acetaminophen 325 Mg Tablet PO 650 mg Q4H PRN Administration Mild Pain (1-3) or Fever Atorvastatin Calcium 10 mg 03/04/25 09:00 03/04/25 08:23 Atorvastatin 10 Mg Tablet BY MOUTH 10 mg DAILY JOSH Administration Clonazepam 0.25 mg 03/04/25 09:00 03/04/25 16:03 Clonazepam (*Crx) 0.25 Mg Tablet PO 0.25 mg BID JOSH Administration Dextrose 12.5 gm 03/04/25 00:43 Dextrose 50% 25 Gm/50 Ml Syringe IV PUSH PRN PRN Hypoglycemia Protocol Diclofenac Sodium 75 mg 03/04/25 07:51 Diclofenac Sod 75 Mg Tablet.Ec PO BIDWM PRN Pain Rated 4-6 Diltiazem HCl 180 mg 03/04/25 09:00 03/04/25 08:24 Diltiazem Hcl Cd 180 Mg Cap.24hr BY MOUTH 180 mg DAILY JOSH Administration Docusate Sodium 100 mg 03/04/25 09:00 03/04/25 16:03 Docusate Sodium 100 Mg Capsule PO 100 mg BID JOSH Administration Escitalopram Oxalate 5 mg 03/04/25 09:00 03/04/25 08:24 Escitalopram Oxalate 5 Mg Tablet PO 5 mg DAILY JOSH Administration Fluticasone Propionate 1 spray 03/03/25 23:40 Fluticasone Propionate 0.05% Na Spr 16 Gm Btl (*Bkc) NASAL Q12H PRN nasal congestion Glucagon 1 mg 03/04/25 00:43 Glucagon For Inj 1 Mg Vial IM PRN PRN Hypoglycemia Protocol Glucose 15 gm 03/04/25 00:43 Glucose Oral Gel 15 Gm Of Glucse In 37.5 Gm Tube PO PRN PRN Hypoglycemia Protocol Guaifenesin 1,200 mg 03/04/25 09:00 03/04/25 20:05 Guaifenesin 12 Hr 600 Mg Tabcr PO 1,200 mg Q12HR JOSH Administration Dextrose 1,000 mls @ 100 mls/hr 03/04/25 00:43 Dextrose 5% 1,000 Ml IVPB PRN PRN Hypoglycemia Protocol Insulin Aspart 2 - 5 units 03/04/25 08:00 03/05/25 08:50 Insulin Aspart (*Bkc) 100 Units/Ml SUB-Q Not Given TIDWM JOSH Protocol Insulin Aspart 1 - 2 units 03/04/25 21:00 03/04/25 20:05 Insulin Aspart (*Bkc) 100 Units/Ml SUB-Q Not Given HS JOSH Protocol Latanoprost 1 drop 03/04/25 00:30 03/04/25 20:05 Latanoprost 0.005% Op Soln 2.5 Ml Btl EACH EYE 1 drop QHS JOSH Administration Lidocaine 1 patch 03/04/25 09:00 03/04/25 08:25 Lidocaine 5% Patch TRANSDERM 1 patch DAILY JOSH Administration Melatonin 5 mg 03/04/25 19:40 03/04/25 20:05 Melatonin 5 Mg Tablet PO 5 mg HS PRN Administration Insomnia Morphine Sulfate 2 mg 03/04/25 00:44 03/05/25 06:31 Morphine Sulfate (*Crx) 2 Mg/Ml Inj IV PUSH 2 mg Q4H PRN Administration Pain Rated 7-10 Multivitamins/Minerals 1 tablet 03/04/25 09:00 03/04/25 16:03 Opti-Gen Tab PO 1 tablet BID JOSH Administration Ondansetron HCl 4 mg 03/03/25 19:46 03/05/25 06:32 Ondansetron Inj 4 Mg/2 Ml Vial IV PUSH 4 mg Q4H PRN Administration Nausea Pantoprazole Sodium 40 mg 03/04/25 09:00 03/04/25 08:23 Pantoprazole 40 Mg Tablet BY MOUTH 40 mg DAILY JOSH Administration Polyethylene Glycol 17 gm 03/05/25 09:00 Polyethylene Glycol 3350 17 Gm Powd.Pack PO QAM JOSH Tamsulosin HCl 0.4 mg 03/03/25 23:50 03/04/25 20:04 Tamsulosin Hcl 0.4 Mg Capsule PO 0.4 mg HS JOSH Administration Radiology Results: ITS Impressions Chest/Abdomen/Pelvis CT 03/03/25 18:54 IMPRESSION: No acute aortic injury. Ascending thoracic aortic ectasia. Mild esophagitis/gastritis. Mildly and nondisplaced segmental fractures of the right posterolateral ninth and 10th ribs respectively. Nondisplaced fracture of the posterior 11th rib. Small adjacent pleural fluid collection likely representing a small volume hemothorax. Left UVJ and distal right ureteral calcifications causing mild ureterectasis. The rectum is mildly distended by formed stool, with mild surrounding inflammatory change, correlate for findings of constipation/fecal impaction. Early colitis is not excluded. Mild superior endplate deformity at T3, may represent acute or chronic mild compression deformity, correlate for pain/tenderness. Mild diffuse body wall edema. Ribs w/Chest X-Ray 03/04/25 16:47 IMPRESSION: Nondisplaced segmental posterior lateral right ninth and 10th rib fractures. Mildly displaced posterior right 10th rib fracture. Small right pleural fluid collection, likely small hemothorax. Possible trace left pleural fluid. Streaky left basilar opacities likely representing atelectasis. Labs Labs: Laboratory Results - last 24 hr 03/04/25 03/04/25 03/04/25 12:26 16:55 19:34 WBC RBC Hgb Hct MCV MCH MCHC RDW Plt Count MPV Immature Gran % (Auto) Neut % (Auto) Lymph % (Auto) [place] % (Auto) Eos % (Auto) Baso % (Auto) Lymph # (Auto) [place] # (Auto) Eos # (Auto) Baso # (Auto) Abs Immat Gran (auto) Absolute Neuts (auto) Absolute Nucleated RBC Nucleated RBC % Sodium Potassium Chloride Carbon Dioxide Anion Gap BUN Creatinine Estim Creat Clear Calc Estimated GFR Glucose POC Capillary Glucose 89 136 H 179 H Hemoglobin A1c Calcium Magnesium Total Bilirubin AST ALT Alkaline Phosphatase Total Protein Albumin 03/05/25 03/05/25 03/05/25 04:28 04:33 07:58 WBC 5.9 RBC 4.00 L Hgb 12.4 L Hct 38.6 L MCV 96.5 MCH 31.0 MCHC 32.1 RDW 13.3 Plt Count 253 MPV 9.5 Immature Gran % (Auto) 0.3 Neut % (Auto) 70.3 Lymph % (Auto) 19.6 [place] % (Auto) 7.8 Eos % (Auto) 1.5 Baso % (Auto) 0.5 Lymph # (Auto) 1.15 [place] # (Auto) 0.5 Eos # (Auto) 0.1 Baso # (Auto) 0.0 Abs Immat Gran (auto) 0.02 Absolute Neuts (auto) 4.1 Absolute Nucleated RBC 0.000 Nucleated RBC % 0.0 Sodium 140 Potassium 3.6 Chloride 105 Carbon Dioxide 28 Anion Gap 7 BUN 13 Creatinine 0.61 L Estim Creat Clear Calc 74 Estimated GFR > 60 Glucose 106 POC Capillary Glucose 115 H Hemoglobin A1c 6.1 H Calcium 9.0 Magnesium 2.0 Total Bilirubin 0.9 AST 43 ALT 18 Alkaline Phosphatase 83 Total Protein 7.0 Albumin 3.8 03/05/25 11:25 WBC RBC Hgb Hct MCV MCH MCHC RDW Plt Count MPV Immature Gran % (Auto) Neut % (Auto) Lymph % (Auto) [place] % (Auto) Eos % (Auto) Baso % (Auto) Lymph # (Auto) [place] # (Auto) Eos # (Auto) Baso # (Auto) Abs Immat Gran (auto) Absolute Neuts (auto) Absolute Nucleated RBC Nucleated RBC % Sodium Potassium Chloride Carbon Dioxide Anion Gap BUN Creatinine Estim Creat Clear Calc Estimated GFR Glucose POC Capillary Glucose 125 H Hemoglobin A1c Calcium Magnesium Total Bilirubin AST ALT Alkaline Phosphatase Total Protein Albumin Quality VTE Prophylaxis VTE prophylaxis: mechanical ordered
--- NOTE | 2025-03-05 11:38 | PCPTNOTE ---
Attempted PT evaluation. Per nursing, pt too drowsy to safely participate in skilled therapy at this time. Will follow.
--- NOTE | 2025-03-05 12:37 | PCOTNOTE ---
Per RN, pt was very confused last night and subsequently needed medication to calm down and pt has not been alert most of the morning now and not yet appropriate to participate in therapy at this time. Will continue to follow for OT evaluation.
[2025-03-05 16:36] LABS: Glucose Point of Care 115 mg/dl (65-105)
[2025-03-05] MEDS: DICLOFENAC SOD 75 MG TABLET.EC PO (20:09)
[2025-03-05] MEDS: TAMSULOSIN HCL 0.4 MG CAPSULE PO (20:09)
[2025-03-05] MEDS: MELATONIN 5 MG TABLET PO (20:10)
[2025-03-05] MEDS: guaiFENesin 12 HR 600 MG TABCR 1200 MG PO (20:10)
[2025-03-05] MEDS: QUEtiapine FUMARATE 25 MG TABLET PO (20:10)
[2025-03-05] MEDS: LATANOPROST 0.005% OP SOLN 2.5 ML BTL 1 DROP EACH EYE (20:10)
[2025-03-05 20:46] LABS: Glucose Point of Care 123 mg/dl (65-105)
[2025-03-06 04:35] VITALS: BP 124/76; PULSE 72; RESP 16; TEMP 36.3; O2SAT 96
[2025-03-06 05:13] LABS: Basophils Percent Auto 0.6 % (0.2-1.2); Eosinophils Absolute Auto 0.1 K/mm3 (0-0.3); Eosinophils Percent Auto 2.1 % (0-4.4); Hematocrit 39.8 % (42.0-52.0); Hemoglobin 12.5 g/dL (14.0-18.0); Immature Granulocyte Absolute 0.02 K/mm3 (0.00-0.031); Immature Granulocyte Percent A 0.3 % (0-0.5); Lymphocytes Percent Auto 16.4 % (18.3-44.2); Mean Corpuscular HGB Conc 31.4 g/dl (32-36); Mean Corpuscular Hemoglobin 30.3 pg (26-34); Mean Corpuscular Volume 96.6 fl (80-100); Mean Platelet Volume 9.1 fl (7.4-10.4); Monocytes Absolute Auto 0.5 K/mm3 (0.1-0.6); Monocytes Percent Auto 7.6 % (2.6-8.5); Neutrophils Absolute Auto 4.9 K/mm3 (1.3-6.7); Platelet Count Result 258 k/mm3 (150-375); Red Blood Count 4.12 M/mm3 (4.6-6.20); Red Cell Distribution Width 13.2 % (11.5-14.5); White Blood Count 6.7 K/mm3 (4.5-10.0)
[2025-03-06 05:28] LABS: Alanine Aminotransferase 18 U/L (6-50); Albumin Level 3.9 g/dL (3.5-5.1); Alkaline Phosphatase 94 U/L (38-126); Anion Gap 10 mmol/L (4-12); Aspartate Amino Transferase 31 U/L (17-59); Blood Urea Nitrogen 21 mg/dL (9-20); Calcium 8.9 mg/dL (8.4-10.2); Carbon Dioxide 25 mmol/L (22-30); Chloride 104 mmol/L (98-107); Estimated CRCL calculation 56 ml/min; Estimated Glomerular Filt Rate > 60; Glucose 98 mg/dL (65-110); Sodium 139 mmol/L (137-145)
[2025-03-06 07:52] LABS: Glucose Point of Care 102 mg/dl (65-105)
--- NOTE | 2025-03-06 08:21 | P.PNIM_ITS ---
Progress Note: A&P Assessment and Plan (1) Right rib fracture: Code(s): S22.31XA - Fracture of one rib, right side, initial encounter for closed fracture Status: Acute (2) Hemothorax on right: Code(s): J94.2 - Hemothorax Status: Acute (3) Compression fracture of T3 vertebra: Code(s): S22.030A - Wedge compression fracture of third thoracic vertebra, initial encounter for closed fracture Status: Acute (4) Hypertension: Qualifiers: Hypertension type: primary hypertension Qualified Code(s): I10 - Essential (primary) hypertension Code(s): I10 - Essential (primary) hypertension Status: Acute (5) Atrial fibrillation: Code(s): I48.91 - Unspecified atrial fibrillation Status: Acute (6) Benign prostatic hyperplasia: Code(s): N40.0 - Benign prostatic hyperplasia without lower urinary tract symptoms Status: Acute (7) Chronic anticoagulation: Code(s): Z79.01 - shelter (current) use of anticoagulants Status: Acute (8) Type 2 diabetes mellitus: Code(s): E11.9 - Type 2 diabetes mellitus without complications Status: Acute Plan Delirium Resolved Patient was noted to have agitated overnight and was unable to sleep until this morning Delirium precautions Nighttime Seroquel 25mg po monitor Right rib fracture patient appears comfortable at bedside CT Chest and AP, showed non displaced segmental fractures of the right posterolateral 9th adn 10th ribs respecttively with small adjacent pleural fluid collection and distended rectum by formed stool PRN pain control Constipation CT AP reviewed Daily Miralax, dulcolax and adjust with clinical course monitor Compression T3 compression fracture continue PRN pain control Neurosurgery consulted Right hemathorax Small per CT Repeat CT shows small pleural effusion and no comment on hemothorax hold Eliquis for now and monitor HTN Titrate home meds with clinical course Afib Continue Rate control Eliquis on hold now DM2 SSI with accucheks adjust clinical course DVT prophylaxis on SCDs, Eliquis on hold due to hemathorax PT/OT and emergency care tech Subjective Date/time seen: 03/06/25 08:21 Interval history: Patient was evaluated at the bedside. was present during the evaluation. Explained the risk versus benefit of holding the Xarelto due to hemothorax. Patient's understands the risk of holding Xarelto and agrees with the plan. Repeated CT scan shows tiny left pleural effusion but was not commented on the hemothorax. Discussed with Radiology. In regards to T3 and T7 compression fracture neurosurgery is consulted Review of Systems Review of Systems: 12 systems were reviewed and are negativ e except for as per HPI. Exam Narrative: General: Thin, frail elderly appearing gentleman sitting up in bed in no acute distress. Weight: 67 kg. BMI: 21.2. HEENT: PERRL, EOMI. Sclera anicteric. Tacky mucous membranes. Neck: Supple. Respiratory: Coughs intermittently. Scattered coarse rhonchi which improved with cough. Cardiovascular: Irregularly irregular rate and rhythm with S1-S2. Gastrointestinal: Abdomen is soft, nontender, and nondistended with positive bowel sounds. Skin: Warm and dry. No rash or lesions on limited exam. Extremities: No cyanosis, clubbing, or significant edema. Radial and pedal pulses intact. Spine: No midline vertebral tenderness. Neurovascular intact in the lower extremities. Musculoskeletal: He is tender to palpation over the lower ribs posterior and anterolaterally. No bruising noted. Neurological: Alert. Cranial nerves 2-12 are grossly intact. Tremors of the upper extremity. Generalized weakness without gross focal findings. Psychiatric: Pleasant and cooperative with appropriate mood and affect. Objective Data Vital Signs Vital Signs: Vital Signs - 24 hr 03/05/25 09:09 03/05/25 09:35 03/05/25 11:19 Temperature 97.9 F Pulse Rate 84 Respiratory Rate 14 Blood Pressure 176/80 H Pulse Oximetry 95 94 95 Oxygen Delivery Room Air Room Air 03/05/25 14:00 03/05/25 20:00 03/05/25 20:13 Temperature 98.1 F 98.6 F Pulse Rate 61 61 97 Respiratory Rate 18 18 16 Blood Pressure 138/74 143/92 H Pulse Oximetry 98 98 96 Oxygen Delivery Room Air 03/06/25 04:35 Temperature 97.3 F L Pulse Rate 72 Respiratory Rate 16 Blood Pressure 124/76 Pulse Oximetry 96 Oxygen Delivery Intake/Output Intake/Output: Intake & Output 03/03/25 03/04/25 03/05/25 03/06/25 23:59 23:59 23:59 23:59 Intake Total 640 120 150 Output Total 1425 550 300 Balance -894 -430 -150 Meds/Results Medications: Active Medications Generic Name Dose Route Start Last Admin Trade Name Freq PRN Reason Stop Dose Admin Acetaminophen 650 mg 03/03/25 19:46 03/04/25 18:16 Acetaminophen 325 Mg Tablet PO 650 mg Q4H PRN Administration Mild Pain (1-3) or Fever Atorvastatin Calcium 10 mg 03/04/25 09:00 03/05/25 14:02 Atorvastatin 10 Mg Tablet BY MOUTH Not Given DAILY [facility] Clonazepam 0.25 mg 03/04/25 09:00 03/05/25 17:21 Clonazepam (*Crx) 0.25 Mg Tablet PO Not Given BID [facility] Dextrose 12.5 gm 03/04/25 00:43 Dextrose 50% 25 Gm/50 Ml Syringe IV PUSH PRN PRN Hypoglycemia Protocol Diclofenac Sodium 75 mg 03/04/25 07:51 03/05/25 20:09 Diclofenac Sod 75 Mg Tablet.Ec PO 75 mg BIDWM PRN Administration Pain Rated 4-6 Diltiazem HCl 180 mg 03/04/25 09:00 03/05/25 14:02 Diltiazem Hcl Cd 180 Mg Cap.24hr BY MOUTH Not Given DAILY [facility] Docusate Sodium 100 mg 03/04/25 09:00 03/05/25 17:21 Docusate Sodium 100 Mg Capsule PO Not Given BID [facility] Escitalopram Oxalate 5 mg 03/04/25 09:00 03/05/25 14:02 Escitalopram Oxalate 5 Mg Tablet PO Not Given DAILY [facility] Fluticasone Propionate 1 spray 03/03/25 23:40 Fluticasone Propionate 0.05% Na Spr 16 Gm Btl (*Bkc) NASAL Q12H PRN nasal congestion Glucagon 1 mg 03/04/25 00:43 Glucagon For Inj 1 Mg Vial IM PRN PRN Hypoglycemia Protocol Glucose 15 gm 03/04/25 00:43 Glucose Oral Gel 15 Gm Of Glucse In 37.5 Gm Tube PO PRN PRN Hypoglycemia Protocol Guaifenesin 1,200 mg 03/04/25 09:00 03/05/25 20:10 Guaifenesin 12 Hr 600 Mg Tabcr PO 1,200 mg Q12HR JOSH Administration Dextrose 1,000 mls @ 100 mls/hr 03/04/25 00:43 Dextrose 5% 1,000 Ml IVPB PRN PRN Hypoglycemia Protocol Insulin Aspart 2 - 5 units 03/04/25 08:00 03/05/25 17:22 Insulin Aspart (*Bkc) 100 Units/Ml SUB-Q Not Given TIDWM [facility] Protocol Insulin Aspart 1 - 2 units 03/04/25 21:00 03/05/25 20:11 Insulin Aspart (*Bkc) 100 Units/Ml SUB-Q Not Given HS [facility] Protocol Latanoprost 1 drop 03/04/25 00:30 03/05/25 20:10 Latanoprost 0.005% Op Soln 2.5 Ml Btl EACH EYE 1 drop QHS JOSH Administration Lidocaine 1 patch 03/04/25 09:00 03/05/25 14:03 Lidocaine 5% Patch TRANSDERM Not Given DAILY [facility] Melatonin 5 mg 03/04/25 19:40 03/05/25 20:10 Melatonin 5 Mg Tablet PO 5 mg HS PRN Administration Insomnia Morphine Sulfate 2 mg 03/04/25 00:44 03/05/25 06:31 Morphine Sulfate (*Crx) 2 Mg/Ml Inj IV PUSH 2 mg Q4H PRN Administration Pain Rated 7-10 Multivitamins/Minerals 1 tablet 03/04/25 09:00 03/05/25 17:21 Opti-Gen Tab PO Not Given BID [facility] Ondansetron HCl 4 mg 03/03/25 19:46 03/05/25 06:32 Ondansetron Inj 4 Mg/2 Ml Vial IV PUSH 4 mg Q4H PRN Administration Nausea Pantoprazole Sodium 40 mg 03/04/25 09:00 03/05/25 14:03 Pantoprazole 40 Mg Tablet BY MOUTH Not Given DAILY [facility] Polyethylene Glycol 17 gm 03/05/25 09:00 03/05/25 14:03 Polyethylene Glycol 3350 17 Gm Powd.Pack PO Not Given QAM [facility] Quetiapine Fumarate 25 mg 03/05/25 21:00 03/05/25 20:10 Quetiapine Fumarate 25 Mg Tablet PO 25 mg HS [facility] Administration Tamsulosin HCl 0.4 mg 03/03/25 23:50 03/05/25 20:09 Tamsulosin Hcl 0.4 Mg Capsule PO 0.4 mg HS JOSH Administration Radiology Results: ITS Impressions Chest/Abdomen/Pelvis CT 03/03/25 18:54 IMPRESSION: No acute aortic injury. Ascending thoracic aortic ectasia. Mild esophagitis/gastritis. Mildly and nondisplaced segmental fractures of the right posterolateral ninth and 10th ribs respectively. Nondisplaced fracture of the posterior 11th rib. Small adjacent pleural fluid collection likely representing a small volume hemothorax. Left UVJ and distal right ureteral calcifications causing mild ureterectasis. The rectum is mildly distended by formed stool, with mild surrounding inflammatory change, correlate for findings of constipation/fecal impaction. Early colitis is not excluded. Mild superior endplate deformity at T3, may represent acute or chronic mild compression deformity, correlate for pain/tenderness. Mild diffuse body wall edema. Ribs w/Chest X-Ray 03/04/25 16:47 IMPRESSION: Nondisplaced segmental posterior lateral right ninth and 10th rib fractures. Mildly displaced posterior right 10th rib fracture. Small right pleural fluid collection, likely small hemothorax. Possible trace left pleural fluid. Streaky left basilar opacities likely representing atelectasis. Head CT 03/05/25 12:13 Impression: No intracranial hemorrhage, mass, or acute infarct. Atrophy and chronic white matter changes, as above. Labs Labs: Laboratory Results - last 24 hr 03/05/25 03/05/25 03/05/25 04:28 11:25 16:34 WBC 5.9 RBC 4.00 L Hgb 12.4 L Hct 38.6 L MCV 96.5 MCH 31.0 MCHC 32.1 RDW 13.3 Plt Count 253 MPV 9.5 Immature Gran % (Auto) 0.3 Neut % (Auto) 70.3 Lymph % (Auto) 19.6 [place] % (Auto) 7.8 Eos % (Auto) 1.5 Baso % (Auto) 0.5 Lymph # (Auto) 1.15 [place] # (Auto) 0.5 Eos # (Auto) 0.1 Baso # (Auto) 0.0 Abs Immat Gran (auto) 0.02 Absolute Neuts (auto) 4.1 Absolute Nucleated RBC 0.000 Nucleated RBC % 0.0 Sodium 140 Potassium 3.6 Chloride 105 Carbon Dioxide 28 Anion Gap 7 BUN 13 Creatinine 0.61 L Estim Creat Clear Calc 74 Estimated GFR > 60 Glucose 106 POC Capillary Glucose 125 H 115 H Calcium 9.0 Magnesium 2.0 Total Bilirubin 0.9 AST 43 ALT 18 Alkaline Phosphatase 83 Total Protein 7.0 Albumin 3.8 03/05/25 03/06/25 03/06/25 20:10 04:39 07:49 WBC 6.7 RBC 4.12 L Hgb 12.5 L Hct 39.8 L MCV 96.6 MCH 30.3 MCHC 31.4 L RDW 13.2 Plt Count 258 MPV 9.1 Immature Gran % (Auto) 0.3 Neut % (Auto) 73.0 Lymph % (Auto) 16.4 L [place] % (Auto) 7.6 Eos % (Auto) 2.1 Baso % (Auto) 0.6 Lymph # (Auto) 1.10 [place] # (Auto) 0.5 Eos # (Auto) 0.1 Baso # (Auto) 0.0 Abs Immat Gran (auto) 0.02 Absolute Neuts (auto) 4.9 Absolute Nucleated RBC 0.000 Nucleated RBC % 0.0 Sodium 139 Potassium 4.0 Chloride 104 Carbon Dioxide 25 Anion Gap 10 BUN 21 H Creatinine 0.82 Estim Creat Clear Calc 56 Estimated GFR > 60 Glucose 98 POC Capillary Glucose 123 H 102 Calcium 8.9 Magnesium 2.0 Total Bilirubin 1.0 AST 31 ALT 18 Alkaline Phosphatase 94 Total Protein 7.0 Albumin 3.9 Quality VTE Prophylaxis VTE prophylaxis: mechanical ordered Hospitalist MIPS Advance Care Plan I have confirmed that the patient's Advanced Care Plan is present, code status is documented, or surrogate decision maker is listed in patient medical record.: Yes Medication Reconciliation I have utilized all available resources to obtain, update and review the patients current medications (includes all prescriptions, OTC, herbals, cannabis, and nutritional supplements).: Yes
[2025-03-06 08:30] VITALS: BP 148/86; PULSE 97; RESP 16; TEMP 36.4; O2SAT 97
[2025-03-06 08:32] VITALS: O2SAT 97
[2025-03-06] MEDS: dilTIAZem HCL CD 180 MG CAP.24HR BY MOUTH (08:32)
[2025-03-06] MEDS: ESCITALOPRAM OXALATE 5 MG TABLET PO (08:32)
[2025-03-06] MEDS: clonazePAM (*CRX) 0.25 MG TABLET PO ×2 (08:32→16:56)
[2025-03-06] MEDS: DOCUSATE SODIUM 100 MG CAPSULE PO ×2 (08:32→16:55)
[2025-03-06] MEDS: ATORVASTATIN 10 MG TABLET BY MOUTH (08:33)
[2025-03-06] MEDS: OPTI-GEN TAB 1 TABLET PO ×2 (08:33→16:55)
[2025-03-06] MEDS: guaiFENesin 12 HR 600 MG TABCR 1200 MG PO ×2 (08:33→20:44)
[2025-03-06] MEDS: PANTOPRAZOLE 40 MG TABLET BY MOUTH (08:33)
[2025-03-06] MEDS: polyethylene glycoL 3350 17 GM POWD.PACK PO (08:49)
[2025-03-06 09:32] LABS: Ammonia < 9 umol/L (9-30)
--- NOTE | 2025-03-06 10:06 | PCPTNOTE ---
Attempted PT evaluation. Pt has T3 compression fracture. Per hospitalist, pt needs neurosurgery consult. Waiting for Neurosurgery approval prior to PT evaluation. Nurse aware. Will follow.
[2025-03-06 10:20] LABS: Folic Acid 17.5 ng/mL (2.76->20)
[2025-03-06 12:17] LABS: Glucose Point of Care 208 mg/dl (65-105)
[2025-03-06] MEDS: INSULIN ASPART (*BKC) 100 UNITS/ML SUB-Q (12:27)
[2025-03-06 14:00] VITALS: BP 103/61; PULSE 64; RESP 16; TEMP 36.4; O2SAT 100
[2025-03-06 17:12] LABS: Glucose Point of Care 140 mg/dl (65-105)
[2025-03-06 20:17] VITALS: BP 136/65; PULSE 68; RESP 16; TEMP 36.7; O2SAT 96
[2025-03-06] MEDS: QUEtiapine FUMARATE 25 MG TABLET PO (20:44)
[2025-03-06] MEDS: ACETAMINOPHEN 325 MG TABLET 650 MG PO (20:44)
[2025-03-06] MEDS: LATANOPROST 0.005% OP SOLN 2.5 ML BTL 1 DROP EACH EYE (20:45)
[2025-03-06] MEDS: TAMSULOSIN HCL 0.4 MG CAPSULE PO (20:45)
[2025-03-06 22:18] LABS: Glucose Point of Care 217 mg/dl (65-105)
[2025-03-06 22:38] LABS: Glucose Point of Care 139 mg/dl (65-105)
[2025-03-07 05:35] VITALS: BP 123/66; PULSE 67; RESP 16; TEMP 36.9; O2SAT 97
[2025-03-07 06:13] LABS: Hematocrit 37.5 % (42.0-52.0); Hemoglobin 12.5 g/dL (14.0-18.0); Mean Corpuscular HGB Conc 33.3 g/dl (32-36); Mean Corpuscular Hemoglobin 31.4 pg (26-34); Mean Corpuscular Volume 94.2 fl (80-100); Mean Platelet Volume 9.4 fl (7.4-10.4); Platelet Count Result 251 k/mm3 (150-375); Red Blood Count 3.98 M/mm3 (4.6-6.20); White Blood Count 8.3 K/mm3 (4.5-10.0)
[2025-03-07 06:32] LABS: Alanine Aminotransferase 20 U/L (6-50); Albumin Level 3.5 g/dL (3.5-5.1); Alkaline Phosphatase 103 U/L (38-126); Anion Gap 5 mmol/L (4-12); Aspartate Amino Transferase 33 U/L (17-59); Bilirubin,Total 1.2 mg/dL (0.2-1.3); Blood Urea Nitrogen 21 mg/dL (9-20); Calcium 8.5 mg/dL (8.4-10.2); Carbon Dioxide 27 mmol/L (22-30); Chloride 103 mmol/L (98-107); Estimated CRCL calculation 69 ml/min; Estimated Glomerular Filt Rate > 60; Glucose 123 mg/dL (65-110); Sodium 135 mmol/L (137-145)
[2025-03-07 08:24] LABS: Glucose Point of Care 124 mg/dl (65-105)
[2025-03-07] MEDS: clonazePAM (*CRX) 0.25 MG TABLET PO ×2 (08:54→17:25)
[2025-03-07] MEDS: guaiFENesin 12 HR 600 MG TABCR 1200 MG PO ×2 (08:55→20:33)
[2025-03-07] MEDS: ESCITALOPRAM OXALATE 5 MG TABLET PO (08:55)
[2025-03-07] MEDS: PANTOPRAZOLE 40 MG TABLET BY MOUTH (08:55)
[2025-03-07] MEDS: LIDOCAINE 5% PATCH 1 PATCH TRANSDERM (08:55)
[2025-03-07] MEDS: DOCUSATE SODIUM 100 MG CAPSULE PO ×2 (08:55→17:25)
[2025-03-07] MEDS: OPTI-GEN TAB 1 TABLET PO ×2 (08:55→17:25)
[2025-03-07] MEDS: dilTIAZem HCL CD 180 MG CAP.24HR BY MOUTH (08:55)
[2025-03-07] MEDS: ATORVASTATIN 10 MG TABLET BY MOUTH (08:55)
[2025-03-07] MEDS: polyethylene glycoL 3350 17 GM POWD.PACK PO (08:56)
--- NOTE | 2025-03-07 09:56 | PM.IMPN ---
Progress Note: A&P Assessment and Plan (1) Right rib fracture: Code(s): S22.31XA - Fracture of one rib, right side, initial encounter for closed fracture Status: Acute (2) Hemothorax on right: Code(s): J94.2 - Hemothorax Status: Acute (3) Compression fracture of T3 vertebra: Code(s): S22.030A - Wedge compression fracture of third thoracic vertebra, initial encounter for closed fracture Status: Acute (4) Hypertension: Qualifiers: Hypertension type: primary hypertension Qualified Code(s): I10 - Essential (primary) hypertension Code(s): I10 - Essential (primary) hypertension Status: Acute (5) Atrial fibrillation: Code(s): I48.91 - Unspecified atrial fibrillation Status: Acute (6) Benign prostatic hyperplasia: Code(s): N40.0 - Benign prostatic hyperplasia without lower urinary tract symptoms Status: Acute (7) Chronic anticoagulation: Code(s): Z79.01 - longterm (current) use of anticoagulants Status: Acute (8) Type 2 diabetes mellitus: Code(s): E11.9 - Type 2 diabetes mellitus without complications Status: Acute Plan Delirium Resolved Patient was noted to have agitated overnight and was unable to sleep until this morning Delirium precautions Nighttime Seroquel 25mg po monitor Right rib fracture patient appears comfortable at bedside CT Chest and AP, showed non displaced segmental fractures of the right posterolateral 9th adn 10th ribs respecttively with small adjacent pleural fluid collection and distended rectum by formed stool PRN pain control Constipation CT AP reviewed Daily Miralax, dulcolax and adjust with clinical course monitor Compression T3 compression fracture continue PRN pain control Neurosurgery consulted Right hemathorax Small per CT Repeat CT shows small pleural effusion and no comment on hemothorax Discussed with the radiologist in regard to the CT scan finding. Radiologist believe the hemothorax has not evolved into bigger but still present resolving into seroma. 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 Radiologist believe the hemothorax has not evolved into bigger but still present resolving into seroma. Patient needs senior living. Patient has high risk of fall. Review of Systems Review of Systems: 12 systems were reviewed and are negative except for as per HPI. Exam Narrative: General: Thin, frail elderly appearing gentleman sitting up in bed in no acute distress. Weight: 67 kg. BMI: 21.2. HEENT: PERRL, EOMI. Sclera anicteric. Tacky mucous membranes. Neck: Supple. Respiratory: Coughs intermittently. Scattered coarse rhonchi which improved with cough. Cardiovascular: Irregularly irregular rate and rhythm with S1-S2. Gastrointestinal: Abdomen is soft, nontender, and nondistended with positive bowel sounds. Skin: Warm and dry. No rash or lesions on limited exam. Extremities: No cyanosis, clubbing, or significant edema. Radial and pedal pulses intact. Spine: No midline vertebral tenderness. Neurovascular intact in the lower extremities. Musculoskeletal: He is tender to palpation over the lower ribs posterior and anterolaterally. No bruising noted. Neurological: Alert. Cranial nerves 2-12 are grossly intact. Tremors of the upper extremity. Generalized weakness without gross focal findings. Psychiatric: Pleasant and cooperative with appropriate mood and affect. Objective Data Vital Signs Vital Signs: Vital Signs - 24 hr 03/06/25 14:00 03/06/25 20:00 03/06/25 20:17 Temperature 97.6 F 98.0 F Pulse Rate 64 68 Respiratory Rate 16 16 Blood Pressure 103/61 136/65 Pulse Oximetry 100 96 Oxygen Delivery Room Air 03/07/25 05:35 Temperature 98.5 F Pulse Rate 67 Respiratory Rate 16 Blood Pressure 123/66 Pulse Oximetry 97 Oxygen Delivery Intake/Output Intake/Output: Intake & Output 03/04/25 03/05/25 03/06/25 03/07/25 23:59 23:59 23:59 23:59 Intake Total 640 120 852 660 Output Total 1880 [address]89 [address] [facility] -[phone] Meds/Results Medications: Active Medications Generic Name Dose Route Start Last Admin Trade Name Freq PRN Reason Stop Dose Admin Acetaminophen 650 mg 03/03/25 19:46 03/06/25 20:44 Acetaminophen 325 Mg Tablet PO 650 mg Q4H PRN Administration Mild Pain (1-3) or Fever Atorvastatin Calcium 10 mg 03/04/25 09:00 03/07/25 08:55 Atorvastatin 10 Mg Tablet BY MOUTH 10 mg DAILY JOSH Administration Clonazepam 0.25 mg 03/04/25 09:00 03/07/25 08:54 Clonazepam (*Crx) 0.25 Mg Tablet PO 0.25 mg BID JOSH Administration Dextrose 12.5 gm 03/04/25 00:43 Dextrose 50% 25 Gm/50 Ml Syringe IV PUSH PRN PRN Hypoglycemia Protocol Diclofenac Sodium 75 mg 03/04/25 07:51 03/05/25 20:09 Diclofenac Sod 75 Mg Tablet.Ec PO 75 mg BIDWM PRN Administration Pain Rated 4-6 Diltiazem HCl 180 mg 03/04/25 09:00 03/07/25 08:55 Diltiazem Hcl Cd 180 Mg Cap.24hr BY MOUTH 180 mg DAILY JOSH Administration Docusate Sodium 100 mg 03/04/25 09:00 03/07/25 08:55 Docusate Sodium 100 Mg Capsule PO 100 mg BID JOSH Administration Escitalopram Oxalate 5 mg 03/04/25 09:00 03/07/25 08:55 Escitalopram Oxalate 5 Mg Tablet PO 5 mg DAILY JOSH Administration Fluticasone Propionate 1 spray 03/03/25 23:40 Fluticasone Propionate 0.05% Na Spr 16 Gm Btl (*Bkc) NASAL Q12H PRN nasal congestion Glucagon 1 mg 03/04/25 00:43 Glucagon For Inj 1 Mg Vial IM PRN PRN Hypoglycemia Protocol Glucose 15 gm 03/04/25 00:43 Glucose Oral Gel 15 Gm Of Glucse In 37.5 Gm Tube PO PRN PRN Hypoglycemia Protocol Guaifenesin 1,200 mg 03/04/25 09:00 03/07/25 08:55 Guaifenesin 12 Hr 600 Mg Tabcr PO 1,200 mg Q12HR JOSH Administration Dextrose 1,000 mls @ 100 mls/hr 03/04/25 00:43 Dextrose 5% 1,000 Ml IVPB PRN PRN Hypoglycemia Protocol Insulin Aspart 2 - 5 units 03/04/25 08:00 03/07/25 08:52 Insulin Aspart (*Bkc) 100 Units/Ml SUB-Q Not Given TIDWM JOSH Protocol Insulin Aspart 1 - 2 units 03/04/25 21:00 03/06/25 22:41 Insulin Aspart (*Bkc) 100 Units/Ml SUB-Q Not Given HS [facility] Protocol Latanoprost 1 drop 03/04/25 00:30 03/06/25 20:45 Latanoprost 0.005% Op Soln 2.5 Ml Btl EACH EYE 1 drop QHS JOSH Administration Lidocaine 1 patch 03/04/25 09:00 03/07/25 08:55 Lidocaine 5% Patch TRANSDERM 1 patch DAILY JOSH Administration Melatonin 5 mg 03/04/25 19:40 03/05/25 20:10 Melatonin 5 Mg Tablet PO 5 mg HS PRN Administration Insomnia Morphine Sulfate 2 mg 03/04/25 00:44 03/05/25 06:31 Morphine Sulfate (*Crx) 2 Mg/Ml Inj IV PUSH 2 mg Q4H PRN Administration Pain Rated 7-10 Multivitamins/Minerals 1 tablet 03/04/25 09:00 03/07/25 08:55 Opti-Gen Tab PO 1 tablet BID JOSH Administration Ondansetron HCl 4 mg 03/03/25 19:46 03/05/25 06:32 Ondansetron Inj 4 Mg/2 Ml Vial IV PUSH 4 mg Q4H PRN Administration Nausea Pantoprazole Sodium 40 mg 03/04/25 09:00 03/07/25 08:55 Pantoprazole 40 Mg Tablet BY MOUTH 40 mg DAILY JOSH Administration Polyethylene Glycol 17 gm 03/05/25 09:00 03/07/25 08:56 Polyethylene Glycol 3350 17 Gm Powd.Pack PO 17 gm QAM JOSH Administration Quetiapine Fumarate 25 mg 03/05/25 21:00 03/06/25 20:44 Quetiapine Fumarate 25 Mg Tablet PO 25 mg HS JOSH Administration Tamsulosin HCl 0.4 mg 03/03/25 23:50 03/06/25 20:45 Tamsulosin Hcl 0.4 Mg Capsule PO 0.4 mg HS JOSH Administration Radiology Results: ITS Impressions Chest/Abdomen/Pelvis CT 03/03/25 18:54 IMPRESSION: No acute aortic injury. Ascending thoracic aortic ectasia. Mild esophagitis/gastritis. Mildly and nondisplaced segmental fractures of the right posterolateral ninth and 10th ribs respectively. Nondisplaced fracture of the posterior 11th rib. Small adjacent pleural fluid collection likely representing a small volume hemothorax. Left UVJ and distal right ureteral calcifications causing mild ureterectasis. The rectum is mildly distended by formed stool, with mild surrounding inflammatory change, correlate for findings of constipation/fecal impaction. Early colitis is not excluded. Mild superior endplate deformity at T3, may represent acute or chronic mild compression deformity, correlate for pain/tenderness. Mild diffuse body wall edema. Ribs w/Chest X-Ray 03/04/25 16:47 IMPRESSION: Nondisplaced segmental posterior lateral right ninth and 10th rib fractures. Mildly displaced posterior right 10th rib fracture. Small right pleural fluid collection, likely small hemothorax. Possible trace left pleural fluid. Streaky left basilar opacities likely representing atelectasis. Head CT 03/05/25 12:13 Impression: No intracranial hemorrhage, mass, or acute infarct. Atrophy and chronic white matter changes, as above. Chest/Abdomen CT 03/06/25 11:56 IMPRESSION: 1. Again seen are recent minimally displaced fractures of the posterior right ninth-11th ribs with likely secondary small right pleural effusion. Tiny left pleural effusion. 2. No change since 03/03/2025 and relatively recent-appearing T3 and T7 compression fractures. 3. Cardiomegaly. 4. Bilateral nonobstructing nephrolithiasis. 5. Large amount of colonic stool which can be seen with constipation. Labs Labs: Laboratory Results - last 24 hr 03/06/25 03/06/25 03/06/25 04:36 12:12 17:08 WBC RBC Hgb Hct MCV MCH MCHC RDW Plt Count MPV Sodium Potassium Chloride Carbon Dioxide Anion Gap BUN Creatinine Estim Creat Clear Calc Estimated GFR Glucose POC Capillary Glucose 208 H 140 H Calcium Total Bilirubin AST ALT Alkaline Phosphatase Total Protein Albumin Vitamin B12 635.0 Folate 17.5 03/06/25 03/06/25 03/07/25 20:15 22:33 05:08 WBC 8.3 RBC 3.98 L Hgb 12.5 L Hct 37.5 L MCV 94.2 MCH 31.4 MCHC 33.3 RDW 13.0 Plt Count 251 MPV 9.4 Sodium 135 L Potassium 4.0 Chloride 103 Carbon Dioxide 27 Anion Gap 5 BUN 21 H Creatinine 0.66 L Estim Creat Clear Calc 69 Estimated GFR > 60 Glucose 123 H POC Capillary Glucose 217 H 139 H Calcium 8.5 Total Bilirubin 1.2 AST 33 ALT 20 Alkaline Phosphatase 103 Total Protein 6.0 L Albumin 3.5 Vitamin B12 Folate 03/07/25 08:21 WBC RBC Hgb Hct MCV MCH MCHC RDW Plt Count MPV Sodium Potassium Chloride Carbon Dioxide Anion Gap BUN Creatinine Estim Creat Clear Calc Estimated GFR Glucose POC Capillary Glucose 124 H Calcium Total Bilirubin AST ALT Alkaline Phosphatase Total Protein Albumin Vitamin B12 Folate Quality VTE Prophylaxis VTE prophylaxis: mechanical ordered Hospitalist MIPS Advance Care Plan I have confirmed that the patient's Advanced Care Plan is present, code status is documented, or surrogate decision maker is listed in patient medical record.: Yes Medication Reconciliation I have utilized all available resources to obtain, update and review the patients current medications (includes all prescriptions, OTC, herbals, cannabis, and nutritional supplements).: Yes
--- NOTE | 2025-03-07 10:20 | WPDNEUROSGCN ---
Assessment and Plan Assessment and plan (1) Compression fracture: Status: Acute Assessment and Plan: Cholo is an 84-year-old gentleman with compression deformities at T3, T7 and L3. The age of these fractures is difficult to assess and therefore I recommend MRI of the thoracic and lumbar spine to see whether any of these are in fact acute. I doubt that the lumbar fracture is acute. If they are discovered to be acute then bracing and adequate pain medication so that he can participate in physical and occupational therapy is the right 1st step. Vertebroplasty or kyphoplasty could be considered with the pain management doctors in consultation if he is not able to ambulate effectively. He may enjoy out of bed activity now with regards to these abnormalities as they are not unstable. It will be very difficult to brace the upper thoracic fractures and it may, in fact, not be desirable. He should avoid strenuous activity or lifting for the next 6 weeks until follow-up. Consult date: 03/07/25 HPI: Cholo Conteh Jr. is a 84 year old male with a history of stroke, atrial fibrillation, taking anticoagulation, hypertension, dyslipidemia and type 2 diabetes, gastroesophageal reflux, benign prostatic hypertrophy and a history of prostate cancer status post radiation who came to the [facility] after a fall. The fall occurred about a week ago. He was going up steps in his garage when he fell forward 2 steps landing on his right side. he was complaining of pain in his lower right rib cage and back. While he has experienced confusion during this hospitalization he denies loss of consciousness or head injury. He has not reporting any new issues in his lower extremities. He has not having any bowel or bladder difficulty that is new. He was found in the emergency room to have nondisplaced fractures of his 9th 10th and 11th ribs as well as some compression deformities. Review of Systems Review of Systems: Const All systems reviewed & are unremarkable except as noted in HPI and below Denies chills, Denies fever, Denies weight gain and Denies weight loss Eyes Denies change in vision and Denies diplopia ENT Denies disequilibrium Card Denies chest pain and Denies dyspnea Resp Denies cough and Denies dyspnea GI Denies abdominal pain, Denies change in bowel habits, Denies fecal incontinence and Denies vomiting Denies hematuria, Denies oliguria, Denies difficulty urinating, Denies dysuria, Denies urinary frequency, Denies urinary hesitancy, Denies urinary incontinence and Denies urinary urgency Musc Reports as per [facility] Skin/ Breast Reports system reviewed and no additional complaints, except as documented Neuro Reports as per HPI Psych Reports no additional complaints, Denies depression and Denies hopelessness Endo Reports no additional complaints and Denies polyuria Ammon/ Lymph Reports no additional complaints Aller/ Immun Reports no additional complaints [facility] Past Medical History Medical History (Updated 03/07/25 @ 10:29 by Saran Han MD) Kidney stones Chronic anticoagulation Benign prostatic hyperplasia Absolute glaucoma, bilateral BMI 22.0-22.9, adult Depression with anxiety Gastroesophageal reflux disease Prostate cancer completed radiation treatments in [id number] Type 2 diabetes mellitus without complication, with no history of insulin use (08/01/19) Stroke Hypertension Atrial fibrillation Surgical History Surgical History (Updated 03/03/25 @ 20:48 by Chapis Sands PA-C) History of Mohs micrographic surgery for skin cancer History of tonsillectomy History of cataract extraction with lens replacement History of bilateral inguinal hernia repair Family History Family History Mother Family history of alcoholism Family history unknown Father Malignant neoplasm of prostate Family history unknown Sibling Patient's sister is in good health Patient's brother is in good health Social History Social History (Updated 03/04/25 @ 00:32 by Chapis Sands PA-C) Social History: Surrogate medical decision maker: Leyda Conteh, spouse. Code status: Full code. Smoking packs per day: 0.07 Smoking cigarettes per day: 1.4 Years smoked: 2 Smoking pack-years: 0.14 Smoking status: Former smoker Second hand tobacco smoke exposure: No Additional smoking assessment comments: Light smoker for 2 years. Alcohol intake: former Alcohol use details: Previous heavy drinker, quit in 1985. Substance use: never Substance use type: does not use Do You Feel Safe in your Home?: Yes Lack of Transportation: No Lack of Food: Never True Current Housing: I Have Housing Concerned About Future Housing: No Difficulty Paying Gas/Electric Bills: No Difficulty Paying for Meds: No Currently Unemployed: No Education: Associate Degree Difficulty w/ Childcare or Family Care: No Living arrangements: with family Additional living arrangements comments: Lives with spouse in [place]. 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 Spiritual care concerns: No Meds Home Medications and Allergies Home Medications ?Medication ?Instructions ?Recorded ?Confirmed ?Type tamsulosin 0.4 mg capsule 0.4 mg PO HS 09/18/19 03/03/25 History vit C 250 mg-vit E 90 mg-zinc 40 1 tablet PO BID 05/13/21 03/03/25 History mg-copper 1 [id number] capsule (PreserVision AREDS-2) docusate sodium 100 mg tablet 600 mg PO BID 01/07/23 03/03/25 History (Stool Softener) apixaban 5 mg tablet (Eliquis) See Rx Instructions .Route 02/14/24 03/03/25 Rx .COMPLEX #180 tabs latanoprost 0.005 % eye drops 1 drp EACH EYE DAILY 06/01/24 03/03/25 History atorvastatin 10 mg tablet See Rx Instructions .Route 06/26/24 03/03/25 Rx .COMPLEX #90 tabs metformin 500 mg tablet 500 mg PO QACDINNER #90 tabs 10/02/24 03/03/25 Rx diltiazem HCl 180 mg See Rx Instructions .Route 01/29/25 03/03/25 Rx capsule,extended release 24 hr .COMPLEX #30 caps pantoprazole 40 mg tablet,delayed See Rx Instructions .Route 01/30/25 03/03/25 Rx release .COMPLEX #90 tabs escitalopram oxalate 5 mg tablet 5 mg PO DAILY #90 tabs 02/19/25 03/03/25 Rx (Lexapro) clonazepam 0.25 mg disintegrating 0.25 mg PO BID #60 tabs 02/28/25 03/03/25 Rx tablet fluticasone propionate 50 1 spray intranasal Q12H PRN nasal 03/03/25 03/03/25 History mcg/actuation nasal congestion spray,suspension Allergies Allergy/AdvReac Type Severity Reaction Status Date / Time pollen extracts Allergy Headache Verified 01/05/25 10:39 Vital Signs Vital Signs - 24 hr 03/06/25 14:00 03/06/25 20:00 03/06/25 20:17 Temperature 97.6 F 98.0 F Pulse Rate 64 68 Respiratory Rate 16 16 Blood Pressure 103/61 136/65 Pulse Oximetry 100 96 Oxygen Delivery Room Air 03/07/25 05:35 Temperature 98.5 F Pulse Rate 67 Respiratory Rate 16 Blood Pressure 123/66 Pulse Oximetry 97 Oxygen Delivery Exam Narrative: General: cooperative, no acute distress, well developed, alert and awake, he has experienced some confusion this hospitalization Orientation/Consciousness: oriented to person, oriented to place (hospital) Constitutional Limitations: no limitations Other: The patient is a normally developed, normal appearing male sitting on the examination table in no acute distress. He is awake, alert, with a spotty recall events but fluent speech Head: normocephalic and atraumatic Ears: external ears normal Face/Nose/Sinus: Normal external nose present Eyes Eyelids: eyelids normal Pupils: Yes Pupils normal by confrontation EOM: EOMs intact bilaterally Neck General: Yes no meningeal signs, Yes supple and Yes no JVD Resp Effort/Inspection: normal respiratory effort and able to speak in complete sentences Cardio Rate: Yes regular rate, patient has atrial fibrillation GI Inspection: No abdominal distension Musc Other: examination of the back reveals no particular tenderness Straight leg raise is negative bilaterally. Ian?s test is negative bilaterally. Skin General: normal color Neuro General: Yes oriented to person, Yes oriented to place, Yes oriented to time, Yes normal cognition and Yes no meningeal signs Cranial Nerves: Yes CN's II-XII intact bilaterally Other: Motor: Strength is normal, 5/5, throughout all muscle groups of the bilateral lower extremities to direct confrontation. Sensory: Sensation is intact to light touch throughout the lower extremities bilaterally. Reflexes: deep tendon reflexes are difficult to elicit at the knees or ankles bilaterally. There is no clonus.. Gait: Gait, station, and transfers were not tested. Psych Appearance: grossly normal Mental status: Yes mental status grossly normal , he has experienced confusion and has some difficulty understanding the examiner Mood: congruent mood Affect: Yes normal affect Speech/Movement: Normal speech and movement present Attitude: Yes cooperative Thought Content: Normal thought content present Review of studies: CT scan of the chest abdomen and pelvis was personally reviewed by me. This is a suboptimal study for studying the spine but it seems to demonstrate mild T3 and more significant T7 superior endplate compression deformities with 40% loss of height at T7. There is a more significant appearing but more chronic appearing L3 compression deformity. There is spondylosis throughout. Results Labs 03/07/25 05:08 03/07/25 05:08 Labs: Short CBC 03/07/25 Range/Units 05:08 WBC 8.3 (4.5-10.0) K/mm3 Hgb 12.5 L (14.0-18.0) g/dL Hct 37.5 L (42.0-52.0) % Plt Count 251 (150-375) k/mm3 BMP 03/07/25 05:08 Sodium 135 L Potassium 4.0 Chloride 103 Carbon Dioxide 27 BUN 21 H Creatinine 0.66 L Glucose 123 H Calcium 8.5 Liver Function 03/07/25 Range/Units 05:08 Total Bilirubin 1.2 (0.2-1.3) mg/dL AST 33 (17-59) U/L ALT 20 (6-50) U/L Alkaline Phosphatase 103 (38-126) U/L Albumin 3.5 (3.5-5.1) g/dL
[2025-03-07 11:47] LABS: Glucose Point of Care 160 mg/dl (65-105)
[2025-03-07 14:00] VITALS: BP 115/60; PULSE 92; RESP 16; TEMP 36.4; O2SAT 98
[2025-03-07 17:21] LABS: Glucose Point of Care 156 mg/dl (65-105)
--- NOTE | 2025-03-07 19:40 | PC.NURSE ---
Found patient on his knees on the floor, the bed alarm was not on, he states he climbed over the rail. Patient was able to able to stand with help of staff and walker. Patient stated he hit his head. I notified charge nurse, Neda Nieto. We did a complete assessment. see documentation.
[2025-03-07 19:51] VITALS: BP 162/84; PULSE 83; RESP 18; TEMP 36.9; O2SAT 99
[2025-03-07 20:06] VITALS: BP 162/84; PULSE 83; RESP 18; O2SAT 99
[2025-03-07 20:23] LABS: Glucose Point of Care 137 mg/dl (65-105)
[2025-03-07] MEDS: TAMSULOSIN HCL 0.4 MG CAPSULE PO (20:32)
[2025-03-07] MEDS: QUEtiapine FUMARATE 25 MG TABLET PO ×2 (20:32→23:50)
[2025-03-07 21:41] VITALS: PULSE 71; RESP 20; O2SAT 92
[2025-03-07] MEDS: LATANOPROST 0.005% OP SOLN 2.5 ML BTL 1 DROP EACH EYE (21:41)
[2025-03-07 21:47] VITALS: BP 143/79; PULSE 80; RESP 18; TEMP 36.9; O2SAT 98
[2025-03-07] MEDS: MELATONIN 5 MG TABLET PO (22:30)
--- NOTE | 2025-03-07 23:12 | P.PNCROSS_ITS ---
Event Note Event Note Event Note: 03/07/2025 at 23:30 Nursing staff called because the patient was more confused than usual. He had had a fall tonight after getting out of bed. Reportedly patient's bed alarm was not on. Patient was sent for a stat CT of the head he has a small area of erythema to posterior scalp. CT was personally with no evidence of acute intercranial process. Radiologic interpretation followed and was congruent with my interpretation. However about an hour so later the patient had increasing confusion. Bad time I arrived to the patient's room he was no longer violent lashing out at staff but he was not redirectable. It sounds as if the patient has been having some episodes of confusion since admission but tonight was more so. I suspect the patient likely has underlying dementia and or hospital induced psychosis. The patient had been started on Seroquel earlier in the hos pital stay. Will give the patient 1 extra dose of 25 mg of Seroquel. structural metal worker will be here later in the shift. 30 minute spent in critical care activities Due to a high probability of clinically significant, life threatening deterioration, the patient required my highest level of preparedness to intervene emergently and I personally spent this critical care time directly and personally managing the patient. This critical care time included obtaining a history; examining the patient; pulse oximetry; ordering and review of studies; arranging urgent treatment with development of a management plan; evaluation of patient's response to treatment; frequent reassessment; and discussions with other providers. It was exclusive of separately billable procedures and treating other patients and teaching time. Please see Assessment and Plan section and the rest of the note for further information on patient assessment and treatment.
[2025-03-08 05:24] LABS: Hematocrit 37.4 % (42.0-52.0); Hemoglobin 12.1 g/dL (14.0-18.0); Mean Corpuscular HGB Conc 32.4 g/dl (32-36); Mean Corpuscular Hemoglobin 30.9 pg (26-34); Mean Corpuscular Volume 95.4 fl (80-100); Mean Platelet Volume 9.1 fl (7.4-10.4); Platelet Count Result 238 k/mm3 (150-375); Red Blood Count 3.92 M/mm3 (4.6-6.20); Red Cell Distribution Width 13.2 % (11.5-14.5); White Blood Count 7.7 K/mm3 (4.5-10.0)
[2025-03-08 05:42] LABS: Alanine Aminotransferase 20 U/L (6-50); Albumin Level 3.6 g/dL (3.5-5.1); Alkaline Phosphatase 105 U/L (38-126); Anion Gap 5 mmol/L (4-12); Aspartate Amino Transferase 29 U/L (17-59); Bilirubin,Total 0.9 mg/dL (0.2-1.3); Blood Urea Nitrogen 14 mg/dL (9-20); Calcium 8.9 mg/dL (8.4-10.2); Carbon Dioxide 30 mmol/L (22-30); Chloride 105 mmol/L (98-107); Estimated CRCL calculation 64 ml/min; Estimated Glomerular Filt Rate > 60; Glucose 114 mg/dL (65-110); Potassium 4.4 mmol/L (3.4-5.0); Sodium 140 mmol/L (137-145)
[2025-03-08] MEDS: guaiFENesin 12 HR 600 MG TABCR 1200 MG PO ×2 (09:57→21:19)
[2025-03-08] MEDS: ATORVASTATIN 10 MG TABLET BY MOUTH (09:57)
[2025-03-08] MEDS: clonazePAM (*CRX) 0.25 MG TABLET PO ×2 (09:57→17:10)
[2025-03-08] MEDS: dilTIAZem HCL CD 180 MG CAP.24HR BY MOUTH (09:57)
[2025-03-08] MEDS: LIDOCAINE 5% PATCH 1 PATCH TRANSDERM (09:57)
[2025-03-08] MEDS: PANTOPRAZOLE 40 MG TABLET BY MOUTH (09:57)
[2025-03-08] MEDS: ESCITALOPRAM OXALATE 5 MG TABLET PO (09:57)
[2025-03-08] MEDS: OPTI-GEN TAB 1 TABLET PO ×2 (09:57→17:10)
[2025-03-08] MEDS: DOCUSATE SODIUM 100 MG CAPSULE PO ×2 (09:58→17:11)
--- NOTE | 2025-03-08 10:50 | P.PNIM_ITS ---
Progress Note: A&P Assessment and Plan (1) Right rib fracture: Code(s): S22.31XA - Fracture of one rib, right side, initial encounter for closed fracture Status: Acute (2) Hemothorax on right: Code(s): J94.2 - Hemothorax Status: Acute (3) Compression fracture of T3 vertebra: Code(s): S22.030A - Wedge compression fracture of third thoracic vertebra, initial encounter for closed fracture Status: Acute (4) Hypertension: Qualifiers: Hypertension type: primary hypertension Qualified Code(s): I10 - Essential (primary) hypertension Code(s): I10 - Essential (primary) hypertension Status: Acute (5) Atrial fibrillation: Code(s): I48.91 - Unspecified atrial fibrillation Status: Acute (6) Benign prostatic hyperplasia: Code(s): N40.0 - Benign prostatic hyperplasia without lower urinary tract symptoms Status: Acute (7) Chronic anticoagulation: Code(s): Z79.01 - residential (current) use of anticoagulants Status: Acute (8) Type 2 diabetes mellitus: Code(s): E11.9 - Type 2 diabetes mellitus without complications Status: Acute Plan Delirium Resolved Patient was noted to have agitated overnight and was unable to sleep until this morning Delirium precautions Nighttime Seroquel 25mg po monitor Right rib fracture Had a repeat fall on 03/07 night patient appears comfortable at bedside CT Chest and AP, showed non displaced segmental fractures of the right posterolateral 9th adn 10th ribs respecttively with small adjacent pleural fluid collection and distended rectum by formed stool PRN pain control Constipation CT AP reviewed Daily Miralax, dulcolax and adjust with clinical course monitor Compression T3 compression fracture continue PRN pain control Neurosurgery consulted Right hemathorax Had a repeat fall on 03/[address] Repeat CT shows small pleural effusion and no comment on hemothorax Discussed with the radiologist in regard to the CT scan finding. Radiologist believe the hemothorax has not evolved into bigger but still present resolving into seroma. hold Eliquis for now and monitor HTN Titrate home meds with clinical course Afib Continue Rate control Eliquis on hold now DM2 SSI with accucheks adjust clinical course DVT prophylaxis on SCDs, Eliquis on hold due to hemathorax PT/OT and healthcare interpreter Subjective Date/time seen: 03/08/25 10:50 Interval history: Patient again had a fall yesterday night. CT head shows no significant finding. Patient complains of right rib cage pain. Will order CT chest abdomen and pelvis. Discussed with patient and his in regards to anticoagulation. Due to recurrent fall patient anticoagulation will be discontinued. Explained the risk of stroke due to AFib. Both agrees in holding anticoagulation and discussed with the PCP in a month if needs to be continued Review of Systems Review of Systems: 12 systems were reviewed and are negativ e except for as per HPI. Exam Narrative: General: Thin, frail elderly appearing gentleman sitting up in bed in no acute distress. Weight: 67 kg. BMI: 21.2. HEENT: PERRL, EOMI. Sclera anicteric. Tacky mucous membranes. Neck: Supple. Respiratory: Coughs intermittently. Scattered coarse rhonchi which improved with cough. Cardiovascular: Irregularly irregular rate and rhythm with S1-S2. Gastrointestinal: Abdomen is soft, nontender, and nondistended with positive bowel sounds. Skin: Warm and dry. No rash or lesions on limited exam. Extremities: No cyanosis, clubbing, or significant edema. Radial and pedal pulses intact. Spine: No midline vertebral tenderness. Neurovascular intact in the lower extremities. Musculoskeletal: He is tender to palpation over the lower ribs posterior and anterolaterally. No bruising noted. Neurological: Alert. Cranial nerves 2-12 are grossly intact. Tremors of the upper extremity. Generalized weakness without gross focal findings. Psychiatric: Pleasant and cooperative with appropriate mood and affect. Objective Data Vital Signs Vital Signs: Vital Signs - 24 hr 03/07/25 13:25 03/07/25 14:00 03/07/25 19:51 Temperature 97.6 F 98.4 F Pulse Rate 92 83 Respiratory Rate 16 18 Blood Pressure 115/60 162/84 H Pulse Oximetry 98 99 Oxygen Delivery Room Air Fraction of Inspired Oxygen 03/07/25 20:06 03/07/25 21:41 03/07/25 21:47 Temperature 98.4 F Pulse Rate 83 71 80 Respiratory Rate 18 20 18 Blood Pressure 162/84 H 143/79 H Pulse Oximetry 99 92 98 Oxygen Delivery Room Air Fraction of Inspired Oxygen 21 Intake/Output Intake/Output: Intake & Output 03/05/25 03/06/25 03/07/25 03/08/25 23:59 23:59 23:59 23:59 Intake Total 226 845 4472 120 Output Total 787 1139 3750 [address] [facility] -430 -745 -490 -880 Meds/Results Medications: Active Medications Generic Name Dose Route Start Last Admin Trade Name Frejhony PRN Reason Stop Dose Admin Acetaminophen 650 mg 03/03/25 19:46 03/06/25 20:44 Acetaminophen 325 Mg Tablet PO 650 mg Q4H PRN Administration Mild Pain (1-3) or Fever Atorvastatin Calcium 10 mg 03/04/25 09:00 03/08/25 09:57 Atorvastatin 10 Mg Tablet BY MOUTH 10 mg DAILY JOSH Administration Clonazepam 0.25 mg 03/04/25 09:00 03/08/25 09:57 Clonazepam (*Crx) 0.25 Mg Tablet PO 0.25 mg BID JOSH Administration Dextrose 12.5 gm 03/04/25 00:43 Dextrose 50% 25 Gm/50 Ml Syringe IV PUSH PRN PRN Hypoglycemia Protocol Diclofenac Sodium 75 mg 03/04/25 07:51 03/05/25 20:09 Diclofenac Sod 75 Mg Tablet.Ec PO 75 mg BIDWM PRN Administration Pain Rated 4-6 Diltiazem HCl 180 mg 03/04/25 09:00 03/08/25 09:57 Diltiazem Hcl Cd 180 Mg Cap.24hr BY MOUTH 180 mg DAILY JOSH Administration Docusate Sodium 100 mg 03/04/25 09:00 03/08/25 09:58 Docusate Sodium 100 Mg Capsule PO 100 mg BID JOSH Administration Escitalopram Oxalate 5 mg 03/04/25 09:00 03/08/25 09:57 Escitalopram Oxalate 5 Mg Tablet PO 5 mg DAILY JOSH Administration Fluticasone Propionate 1 spray 03/03/25 23:40 Fluticasone Propionate 0.05% Na Spr 16 Gm Btl (*Bkc) NASAL Q12H PRN nasal congestion Glucagon 1 mg 03/04/25 00:43 Glucagon For Inj 1 Mg Vial IM PRN PRN Hypoglycemia Protocol Glucose 15 gm 03/04/25 00:43 Glucose Oral Gel 15 Gm Of Glucse In 37.5 Gm Tube PO PRN PRN Hypoglycemia Protocol Guaifenesin 1,200 mg 03/04/25 09:00 03/08/25 09:57 Guaifenesin 12 Hr 600 Mg Tabcr PO 1,200 mg Q12HR JOSH Administration Dextrose 1,000 mls @ 100 mls/hr 03/04/25 00:43 Dextrose 5% 1,000 Ml IVPB PRN PRN Hypoglycemia Protocol Insulin Aspart 2 - 5 units 03/04/25 08:00 03/08/25 08:00 Insulin Aspart (*Bkc) 100 Units/Ml SUB-Q Not Given TIDWM JOSH Protocol Insulin Aspart 1 - 2 units 03/04/25 21:00 03/07/25 20:28 Insulin Aspart (*Bkc) 100 Units/Ml SUB-Q Not Given HS [facility] Protocol Latanoprost 1 drop 03/04/25 00:30 03/07/25 21:41 Latanoprost 0.005% Op Soln 2.5 Ml Btl EACH EYE 1 drop QHS JOSH Administration Lidocaine 1 patch 03/04/25 09:00 03/08/25 09:57 Lidocaine 5% Patch TRANSDERM 1 patch DAILY JOSH Administration Melatonin 5 mg 03/04/25 19:40 03/07/25 22:30 Melatonin 5 Mg Tablet PO 5 mg HS PRN Administration Insomnia Morphine Sulfate 2 mg 03/04/25 00:44 03/05/25 06:31 Morphine Sulfate (*Crx) 2 Mg/Ml Inj IV PUSH 2 mg Q4H PRN Administration Pain Rated 7-10 Multivitamins/Minerals 1 tablet 03/04/25 09:00 03/08/25 09:57 Opti-Gen Tab PO 1 tablet BID JOSH Administration Ondansetron HCl 4 mg 03/03/25 19:46 03/05/25 06:32 Ondansetron Inj 4 Mg/2 Ml Vial IV PUSH 4 mg Q4H PRN Administration Nausea Pantoprazole Sodium 40 mg 03/04/25 09:00 03/08/25 09:57 Pantoprazole 40 Mg Tablet BY MOUTH 40 mg DAILY JOSH Administration Polyethylene Glycol 17 gm 03/05/25 09:00 03/08/25 09:58 Polyethylene Glycol 3350 17 Gm Powd.Pack PO Not Given QAM JOSH Quetiapine Fumarate 25 mg 03/05/25 21:00 03/07/25 20:32 Quetiapine Fumarate 25 Mg Tablet PO 25 mg HS JOSH Administration Tamsulosin HCl 0.4 mg 03/03/25 23:50 03/07/25 20:32 Tamsulosin Hcl 0.4 Mg Capsule PO 0.4 mg HS JOSH Administration Radiology Results: ITS Impressions Chest/Abdomen/Pelvis CT 03/03/25 18:54 IMPRESSION: No acute aortic injury. Ascending thoracic aortic ectasia. Mild esophagitis/gastritis. Mildly and nondisplaced segmental fractures of the right posterolateral ninth and 10th ribs respectively. Nondisplaced fracture of the posterior 11th rib. Small adjacent pleural fluid collection likely representing a small volume he mothorax. Left UVJ and distal right ureteral calcifications causing mild ureterectasis. The rectum is mildly distended by formed stool, with mild surrounding inflammatory change, correlate for findings of constipation/fecal impaction. Early colitis is not excluded. Mild superior endplate deformity at T3, may represent acute or chronic mild compression deformity, correlate for pain/tenderness. Mild diffuse body wall edema. Ribs w/Chest X-Ray 03/04/25 16:47 IMPRESSION: Nondisplaced segmental posterior lateral right ninth and 10th rib fractures. Mildly displaced posterior right 10th rib fracture. Small right pleural fluid collection, likely small hemothorax. Possible trace left pleural fluid. Streaky left basilar opacities likely representing atelectasis. Chest/Abdomen CT 03/06/25 11:56 IMPRESSION: 1. Again seen are recent minimally displaced fractures of the posterior right ninth-11th ribs with likely secondary small right pleural effusion. Tiny left pleural effusion. 2. No change since 03/03/2025 and relatively recent-appearing T3 and T7 compression fractures. 3. Cardiomegaly. 4. Bilateral nonobstructing nephrolithiasis. 5. Large amount of colonic stool which can be seen with constipation. Head CT 03/07/25 20:36 Impression: No acute intracranial hemorrhage or suspicious mass effect. Labs Labs: Laboratory Results - last 24 hr 03/07/25 03/07/25 03/07/25 11:39 17:17 19:55 WBC RBC Hgb Hct MCV MCH MCHC RDW Plt Count MPV Sodium Potassium Chloride Carbon Dioxide Anion Gap BUN Creatinine Estim Creat Clear Calc Estimated GFR Glucose POC Capillary Glucose 160 H 156 H 137 H Calcium Total Bilirubin AST ALT Alkaline Phosphatase Total Protein Albumin 03/08/25 04:57 WBC 7.7 RBC 3.92 L Hgb 12.1 L Hct 37.4 L MCV 95.4 MCH 30.9 MCHC 32.4 RDW 13.2 Plt Count 238 MPV 9.1 Sodium 140 Potassium 4.4 Chloride 105 Carbon Dioxide 30 Anion Gap 5 BUN 14 D Creatinine 0.71 Estim Creat Clear Calc 64 Estimated GFR > 60 Glucose 114 H POC Capillary Glucose Calcium 8.9 Total Bilirubin 0.9 AST 29 ALT 20 Alkaline Phosphatase 105 Total Protein 6.0 L Albumin 3.6 Quality VTE Prophylaxis VTE prophylaxis: mechanical ordered Hospitalist MIPS Advance Care Plan I have confirmed that the patient's Advanced Care Plan is present, code status is documented, or surrogate decision maker is listed in patient medical record.: Yes Medication Reconciliation I have utilized all available resources to obtain, update and review the patients current medications (includes all prescriptions, OTC, herbals, cannabis, and nutritional supplements).: Yes
[2025-03-08] MEDS: ACETAMINOPHEN 325 MG TABLET 650 MG PO (10:52)
[2025-03-08 11:36] LABS: Glucose Point of Care 162 mg/dl (65-105)
[2025-03-08 13:37] VITALS: BP 107/59; PULSE 70; RESP 18; TEMP 36.8; O2SAT 100
[2025-03-08 16:38] LABS: Glucose Point of Care 89 mg/dl (65-105)
[2025-03-08 20:56] LABS: Glucose Point of Care 111 mg/dl (65-105)
[2025-03-08 21:04] VITALS: BP 108/54; PULSE 61; RESP 16; TEMP 36.3; O2SAT 100
[2025-03-08] MEDS: LATANOPROST 0.005% OP SOLN 2.5 ML BTL 1 DROP EACH EYE (21:18)
[2025-03-08] MEDS: QUEtiapine FUMARATE 25 MG TABLET PO (21:19)
[2025-03-08] MEDS: TAMSULOSIN HCL 0.4 MG CAPSULE PO (21:20)
[2025-03-09] MEDS: ACETAMINOPHEN 325 MG TABLET 650 MG PO ×2 (01:47→12:40)
[2025-03-09 06:00] VITALS: BP 129/72; PULSE 53; RESP 12; TEMP 36.3; O2SAT 99
[2025-03-09 07:26] LABS: Glucose Point of Care 114 mg/dl (65-105)
[2025-03-09 08:13] LABS: Hematocrit 38.2 % (42.0-52.0); Hemoglobin 12.3 g/dL (14.0-18.0); Mean Corpuscular HGB Conc 32.2 g/dl (32-36); Mean Corpuscular Hemoglobin 31.1 pg (26-34); Mean Corpuscular Volume 96.7 fl (80-100); Mean Platelet Volume 9.1 fl (7.4-10.4); Platelet Count Result 244 k/mm3 (150-375); Red Blood Count 3.95 M/mm3 (4.6-6.20); Red Cell Distribution Width 13.2 % (11.5-14.5); White Blood Count 5.5 K/mm3 (4.5-10.0)
[2025-03-09 08:21] LABS: Alanine Aminotransferase 24 U/L (6-50); Albumin Level 3.5 g/dL (3.5-5.1); Alkaline Phosphatase 110 U/L (38-126); Anion Gap 6 mmol/L (4-12); Aspartate Amino Transferase 38 U/L (17-59); Bilirubin,Total 0.7 mg/dL (0.2-1.3); Blood Urea Nitrogen 14 mg/dL (9-20); Calcium 8.5 mg/dL (8.4-10.2); Carbon Dioxide 26 mmol/L (22-30); Chloride 105 mmol/L (98-107); Estimated CRCL calculation 77 ml/min; Estimated Glomerular Filt Rate > 60; Glucose 112 mg/dL (65-110); Potassium 4.1 mmol/L (3.4-5.0); Sodium 137 mmol/L (137-145)
[2025-03-09] MEDS: dilTIAZem HCL CD 180 MG CAP.24HR BY MOUTH (09:48)
[2025-03-09] MEDS: clonazePAM (*CRX) 0.25 MG TABLET PO ×2 (09:48→17:54)
[2025-03-09] MEDS: polyethylene glycoL 3350 17 GM POWD.PACK PO (09:49)
[2025-03-09] MEDS: OPTI-GEN TAB 1 TABLET PO ×2 (09:49→17:47)
[2025-03-09] MEDS: guaiFENesin 12 HR 600 MG TABCR 1200 MG PO ×2 (09:49→20:12)
[2025-03-09] MEDS: DOCUSATE SODIUM 100 MG CAPSULE PO (09:49)
[2025-03-09] MEDS: ESCITALOPRAM OXALATE 5 MG TABLET PO (09:49)
[2025-03-09] MEDS: PANTOPRAZOLE 40 MG TABLET BY MOUTH (09:49)
[2025-03-09] MEDS: ATORVASTATIN 10 MG TABLET BY MOUTH (09:49)
[2025-03-09] MEDS: LIDOCAINE 5% PATCH 1 PATCH TRANSDERM (10:09)
[2025-03-09 11:25] LABS: Glucose Point of Care 162 mg/dl (65-105)
--- NOTE | 2025-03-09 13:07 | P.PNIM_ITS ---
Progress Note: A&P Assessment and Plan (1) Right rib fracture: Code(s): S22.31XA - Fracture of one rib, right side, initial encounter for closed fracture Status: Acute (2) Hemothorax on right: Code(s): J94.2 - Hemothorax Status: Acute (3) Compression fracture of T3 vertebra: Code(s): S22.030A - Wedge compression fracture of third thoracic vertebra, initial encounter for closed fracture Status: Acute (4) Hypertension: Qualifiers: Hypertension type: primary hypertension Qualified Code(s): I10 - Essential (primary) hypertension Code(s): I10 - Essential (primary) hypertension Status: Acute (5) Atrial fibrillation: Code(s): I48.91 - Unspecified atrial fibrillation Status: Acute (6) Benign prostatic hyperplasia: Code(s): N40.0 - Benign prostatic hyperplasia without lower urinary tract symptoms Status: Acute (7) Chronic anticoagulation: Code(s): Z79.01 - shelter (current) use of anticoagulants Status: Acute (8) Type 2 diabetes mellitus: Code(s): E11.9 - Type 2 diabetes mellitus without complications Status: Acute Plan Delirium Resolved Patient was noted to have agitated overnight and was unable to sleep until this morning Delirium precautions Nighttime Seroquel 25mg po monitor Right rib fracture Had a repeat fall on 03/07 night patient appears comfortable at bedside CT Chest and AP, showed non displaced segmental fractures of the right posterolateral 9th adn 10th ribs respecttively with small adjacent pleural fluid collection and distended rectum by formed stool PRN pain control Constipation CT AP reviewed Daily Miralax, dulcolax and adjust with clinical course monitor Compression T3 compression fracture continue PRN pain control Neurosurgery consulted Order MRI cervical, lumbar, thoracic Right hemathorax Had a repeat fall on 03/[address] Repeat CT shows small pleural effusion and no comment on hemothorax Discussed with the radiologist in regard to the CT scan finding. Radiologist believe the hemothorax has not evolved into bigger but still present resolving into seroma. hold Eliquis for now and monitor HTN Titrate home meds with clinical course Afib Continue Rate control Eliquis on hold now DM2 SSI with accucheks adjust clinical course DVT prophylaxis on SCDs, Eliquis on hold due to hemathorax PT/OT and long term care pharmacist Subjective Date/time seen: 03/09/25 13:07 Interval history: Patient is currently doing well. As discussed previously patient has multiple falls and discontinued Eliquis. Patient will undergo MRI Review of Systems Review of Systems: 12 systems were reviewed and are negativ e except for as per HPI. All systems reviewed & are unremarkable except as noted in HPI and below Exam Narrative: General: Thin, frail elderly appearing gentleman sitting up in bed in no acute distress. Weight: 67 kg. BMI: 21.2. HEENT: PERRL, EOMI. Sclera anicteric. Tacky mucous membranes. Neck: Supple. Respiratory: Coughs intermittently. Scattered coarse rhonchi which improved with cough. Cardiovascular: Irregularly irregular rate and rhythm with S1-S2. Gastrointestinal: Abdomen is soft, nontender, and nondistended with positive bowel sounds. Skin: Warm and dry. No rash or lesions on limited exam. Extremities: No cyanosis, clubbing, or significant edema. Radial and pedal pulses intact. Spine: No midline vertebral tenderness. Neurovascular intact in the lower extremities. Musculoskeletal: He is tender to palpation over the lower ribs posterior and anterolaterally. No bruising noted. Neurological: Alert. Cranial nerves 2-12 are grossly intact. Tremors of the upper extremity. Generalized weakness without gross focal findings. Psychiatric: Pleasant and cooperative with appropriate mood and affect. Objective Data Vital Signs Vital Signs: Vital Signs - 24 hr 03/08/25 13:37 03/08/25 20:00 03/08/25 21:04 Temperature 98.3 F 97.3 F L Pulse Rate 70 61 Respiratory Rate 18 16 Blood Pressure 107/59 L 108/54 L Pulse Oximetry 100 100 Oxygen Delivery Room Air 03/09/25 06:00 Temperature 97.3 F L Pulse Rate 53 L Respiratory Rate 12 Blood Pressure 129/72 Pulse Oximetry 99 Oxygen Delivery Intake/Output Intake/Output: Intake & Output 03/06/25 03/07/25 03/08/25 03/09/25 23:59 23:59 23:59 23:59 Intake Total 630 1260 660 560 Output Total 1375 1750 1950 1150 [facility] -745 [phone] -1290 -590 Meds/Results Medications: Active Medications Generic Name Dose Route Start Last Admin Trade Name Freq PRN Reason Stop Dose Admin Acetaminophen 650 mg 03/03/25 19:46 03/09/25 12:40 Acetaminophen 325 Mg Tablet PO 650 mg Q4H PRN Administration Mild Pain (1-3) or Fever Atorvastatin Calcium 10 mg 03/04/25 09:00 03/09/25 09:49 Atorvastatin 10 Mg Tablet BY MOUTH 10 mg DAILY JOSH Administration Clonazepam 0.25 mg 03/04/25 09:00 03/09/25 09:48 Clonazepam (*Crx) 0.25 Mg Tablet PO 0.25 mg BID JOSH Administration Dextrose 12.5 gm 03/04/25 00:43 Dextrose 50% 25 Gm/50 Ml Syringe IV PUSH PRN PRN Hypoglycemia Protocol Diclofenac Sodium 75 mg 03/04/25 07:51 03/05/25 20:09 Diclofenac Sod 75 Mg Tablet.Ec PO 75 mg BIDWM PRN Administration Pain Rated 4-6 Diltiazem HCl 180 mg 03/04/25 09:00 03/09/25 09:48 Diltiazem Hcl Cd 180 Mg Cap.24hr BY MOUTH 180 mg DAILY JOSH Administration Docusate Sodium 100 mg 03/04/25 09:00 03/09/25 09:49 Docusate Sodium 100 Mg Capsule PO 100 mg BID JOSH Administration Escitalopram Oxalate 5 mg 03/04/25 09:00 03/09/25 09:49 Escitalopram Oxalate 5 Mg Tablet PO 5 mg DAILY JOSH Administration Fluticasone Propionate 1 spray 03/03/25 23:40 Fluticasone Propionate 0.05% Na Spr 16 Gm Btl (*Bkc) NASAL Q12H PRN nasal congestion Glucagon 1 mg 03/04/25 00:43 Glucagon For Inj 1 Mg Vial IM PRN PRN Hypoglycemia Protocol Glucose 15 gm 03/04/25 00:43 Glucose Oral Gel 15 Gm Of Glucse In 37.5 Gm Tube PO PRN PRN Hypoglycemia Protocol Guaifenesin 1,200 mg 03/04/25 09:00 03/09/25 09:49 Guaifenesin 12 Hr 600 Mg Tabcr PO 1,200 mg Q12HR JOSH Administration Dextrose 1,000 mls @ 100 mls/hr 03/04/25 00:43 Dextrose 5% 1,000 Ml IVPB PRN PRN Hypoglycemia Protocol Insulin Aspart 2 - 5 units 03/04/25 08:00 03/09/25 11:44 Insulin Aspart (*Bkc) 100 Units/Ml SUB-Q Not Given TIDWM JOSH Protocol Insulin Aspart 1 - 2 units 03/04/25 21:00 03/08/25 21:15 Insulin Aspart (*Bkc) 100 Units/Ml SUB-Q Not Given HS [facility] Protocol Latanoprost 1 drop 03/04/25 00:30 03/08/25 21:18 Latanoprost 0.005% Op Soln 2.5 Ml Btl EACH EYE 1 drop QHS JOSH Administration Lidocaine 1 patch 03/04/25 09:00 03/09/25 10:09 Lidocaine 5% Patch TRANSDERM 1 patch DAILY JOSH Administration Melatonin 5 mg 03/04/25 19:40 03/07/25 22:30 Melatonin 5 Mg Tablet PO 5 mg HS PRN Administration Insomnia Morphine Sulfate 2 mg 03/04/25 00:44 03/05/25 06:31 Morphine Sulfate (*Crx) 2 Mg/Ml Inj IV PUSH 2 mg Q4H PRN Administration Pain Rated 7-10 Multivitamins/Minerals 1 tablet 03/04/25 09:00 03/09/25 09:49 Opti-Gen Tab PO 1 tablet BID JOSH Administration Ondansetron HCl 4 mg 03/03/25 19:46 03/05/25 06:32 Ondansetron Inj 4 Mg/2 Ml Vial IV PUSH 4 mg Q4H PRN Administration Nausea Pantoprazole Sodium 40 mg 03/04/25 09:00 03/09/25 09:49 Pantoprazole 40 Mg Tablet BY MOUTH 40 mg DAILY JOSH Administration Polyethylene Glycol 17 gm 03/05/25 09:00 03/09/25 09:49 Polyethylene Glycol 3350 17 Gm Powd.Pack PO 17 gm QAM JOSH Administration Quetiapine Fumarate 25 mg 03/05/25 21:00 03/08/25 21:19 Quetiapine Fumarate 25 Mg Tablet PO 25 mg HS JOSH Administration Tamsulosin HCl 0.4 mg 03/03/25 23:50 03/08/25 21:20 Tamsulosin Hcl 0.4 Mg Capsule PO 0.4 mg HS [facility] Administration Radiology Results: ITS Impressions Ribs w/Chest X-Ray 03/04/25 16:47 IMPRESSION: Nondisplaced segmental posterior lateral right ninth and 10th rib fractures. Mildly displaced posterior right 10th rib fracture. Small right pleural fluid collection, likely small hemothorax. Possible trace left pleural fluid. Streaky left basilar opacities likely representing atelectasis. Chest/Abdomen CT 03/06/25 11:56 IMPRESSION: 1. Again seen are recent minimally displaced fractures of the posterior right ninth-11th ribs with likely secondary small right pleural effusion. Tiny left pleural effusion. 2. No change since 03/03/2025 and relatively recent-appearing T3 and T7 compression fractures. 3. Cardiomegaly. 4. Bilateral nonobstructing nephrolithiasis. 5. Large amount of colonic stool which can be seen with constipation. Head CT 03/07/25 20:36 Impression: No acute intracranial hemorrhage or suspicious mass effect. Chest/Abdomen/Pelvis CT 03/08/25 16:35 IMPRESSION: Stable findings within the chest, abdomen and pelvis, as detailed above. Knee X-Ray 03/08/25 16:49 IMPRESSION: No acute osseous abnormality right knee. Severe osteoarthritic changes. Labs Labs: Laboratory Results - last 24 hr 03/08/25 03/08/25 03/09/25 16:32 20:22 07:10 WBC RBC Hgb Hct MCV MCH MCHC RDW Plt Count MPV Sodium Potassium Chloride Carbon Dioxide Anion Gap BUN Creatinine Estim Creat Clear Calc Estimated GFR Glucose POC Capillary Glucose 89 111 H 114 H Calcium Total Bilirubin AST ALT Alkaline Phosphatase Total Protein Albumin 03/09/25 03/09/25 07:52 11:19 WBC 5.5 RBC 3.95 L Hgb 12.3 L Hct 38.2 L MCV 96.7 MCH 31.1 MCHC 32.2 RDW 13.2 Plt Count 244 MPV 9.1 Sodium 137 Potassium 4.1 Chloride 105 Carbon Dioxide 26 Anion Gap 6 BUN 14 Creatinine 0.58 L Estim Creat Clear Calc 77 Estimated GFR > 60 Glucose 112 H POC Capillary Glucose 162 H Calcium 8.5 Total Bilirubin 0.7 AST 38 ALT 24 Alkaline Phosphatase 110 Total Protein 6.0 L Albumin 3.5 Quality VTE Prophylaxis VTE prophylaxis: mechanical ordered Hospitalist MIPS Advance Care Plan I have confirmed that the patient's Advanced Care Plan is present, code status is documented, or surrogate decision maker is listed in patient medical record.: Yes Medication Reconciliation I have utilized all available resources to obtain, update and review the patients current medications (includes all prescriptions, OTC, herbals, cannabis, and nutritional supplements).: Yes
--- NOTE | 2025-03-09 13:51 | PCSTNOTE ---
Please refer to the Bedside Swallow Evaluation in the EMR. Please note, silent aspiration cannot be ruled out at bedside. Patient admitted following falls at home. Nursing requested ST consult for a bedside swallow due to noted difficulty swallowing medication. Spouse reports occasional coughing at home but it is not frequent Speech bedside noted frequent raspy quality following trials improved with cues for throat clear and repeat swallow. Coughing post swallow noted with mixed texture pudding/cracker most likely secondary to premature spillage of bolus. additional coughing noted with sequential straw drinks but improved with single controlled drinks without straw usage. Recommend: No straw usage, small bites and drinks, and MBS completion.
[2025-03-09 13:57] VITALS: BP 108/41; PULSE 65; RESP 16; TEMP 36.9; O2SAT 99
[2025-03-09 17:03] LABS: Glucose Point of Care 119 mg/dl (65-105)
[2025-03-09 20:04] VITALS: BP 122/79; PULSE 80; RESP 18; TEMP 37; O2SAT 98
[2025-03-09] MEDS: TAMSULOSIN HCL 0.4 MG CAPSULE PO (20:12)
[2025-03-09] MEDS: QUEtiapine FUMARATE 25 MG TABLET PO (20:12)
[2025-03-09] MEDS: LATANOPROST 0.005% OP SOLN 2.5 ML BTL 1 DROP EACH EYE (20:13)
[2025-03-09 20:24] LABS: Glucose Point of Care 179 mg/dl (65-105)
[2025-03-09] MEDS: MELATONIN 5 MG TABLET PO (20:33)
[2025-03-10 05:26] LABS: Hematocrit 37.9 % (42.0-52.0); Hemoglobin 12.2 g/dL (14.0-18.0); Mean Corpuscular HGB Conc 32.2 g/dl (32-36); Mean Corpuscular Volume 96.2 fl (80-100); Mean Platelet Volume 9.3 fl (7.4-10.4); Platelet Count Result 253 k/mm3 (150-375); Red Blood Count 3.94 M/mm3 (4.6-6.20); White Blood Count 5.9 K/mm3 (4.5-10.0)
[2025-03-10 05:30] VITALS: BP 138/82; PULSE 64; RESP 18; TEMP 36.4; O2SAT 96
[2025-03-10 05:33] LABS: Alanine Aminotransferase 25 U/L (6-50); Albumin Level 3.2 g/dL (3.5-5.1); Alkaline Phosphatase 111 U/L (38-126); Anion Gap 5 mmol/L (4-12); Aspartate Amino Transferase 38 U/L (17-59); Bilirubin,Total 0.6 mg/dL (0.2-1.3); Blood Urea Nitrogen 14 mg/dL (9-20); Calcium 8.4 mg/dL (8.4-10.2); Carbon Dioxide 25 mmol/L (22-30); Chloride 106 mmol/L (98-107); Estimated CRCL calculation 77 ml/min; Estimated Glomerular Filt Rate > 60; Glucose 104 mg/dL (65-110); Potassium 4.3 mmol/L (3.4-5.0); Sodium 136 mmol/L (137-145)
[2025-03-10 08:22] LABS: Glucose Point of Care 117 mg/dl (65-105)
[2025-03-10] MEDS: clonazePAM (*CRX) 0.25 MG TABLET PO (10:16)
[2025-03-10] MEDS: ATORVASTATIN 10 MG TABLET BY MOUTH (10:20)
[2025-03-10] MEDS: dilTIAZem HCL CD 180 MG CAP.24HR BY MOUTH (10:20)
[2025-03-10] MEDS: ESCITALOPRAM OXALATE 5 MG TABLET PO (10:20)
[2025-03-10] MEDS: PANTOPRAZOLE 40 MG TABLET BY MOUTH (10:20)
[2025-03-10] MEDS: OPTI-GEN TAB 1 TABLET PO (10:20)
[2025-03-10] MEDS: guaiFENesin 12 HR 600 MG TABCR 1200 MG PO (10:20)
[2025-03-10] MEDS: LIDOCAINE 5% PATCH 1 PATCH TRANSDERM (10:21)
[2025-03-10] MEDS: polyethylene glycoL 3350 17 GM POWD.PACK PO (10:21)
[2025-03-10 10:24] VITALS: BP 139/89; PULSE 75; RESP 18; TEMP 36.7; O2SAT 97
--- NOTE | 2025-03-10 14:00 | PCSTNOTE ---
Please refer to the Modified Barium Swallow Evaluation in the EMR. This pleasant 84 year old male was admitted to [facility] on 03/03 due to back pain following a fall. The pt has a PMH of a CVA in 2014. He completed a BSE on 03/09 and demonstrated s/s of aspiration at bedside. MBS was then recommended. At baseline, the pt demonstrates a weak vocal quality and cough. The pt was seated for a lateral view and presented with thin liquids, mildly thickened liquids, and a pureed consistency via straw and spoon. The oral stages were WFL. During the pharyngeal stage the following was exhibited: reduced laryngeal elevation as evidenced by laryngeal penetration during the trial of mildly thick liquids; reduced laryngeal closure as evidenced by aspiration occurring after trials of the thin liquids and pureed consistency, and reduced tongue base retraction as evidenced by vallecular and pyriform sinus residue ranging from trace to mild on all consistencies. Pt encouraged to clear throat when penetrating/aspirating but pt demonstrated difficulty with following directions this date. Pt required repetition. When pt followed through with throat clearing/coughing, it did not resolve the penetrated/aspirated consistencies due to the pts baseline cough being weak. Impression: Severe dysphagia due to aspiration on thin liquids and an occurrence of penetration on mildly thick liquids, as well as consistent vallecular and pyriform sinus residue. Recommendations: NPO; begin speech therapy dysphagia treatment to work on strengthening exercises and re-assess by completing a repeat MBSS after 3-4 days (or when deemed necessary). Thank you for this referral.
[2025-03-10 14:48] VITALS: BP 120/69; PULSE 68; RESP 16; TEMP 36.9; O2SAT 96
--- NOTE | 2025-03-10 15:25 | PC.NURSE ---
RN spoke to patient and spouse after Dr. YOUNG explained the results of today's procedures. They are both poor historians and have needed information re-explained multiple times. RN asked if they had any other family to address the concerns and results with. Patient and spouse gave me permission and provided RN a phone number to speak to patient's sister. Both patient and spouse, as well as patient's sister became very emotional and needed more answers. They did not feel like the time was right to make any medical decisions.RN called Dr. YOUNG and let him know. RN will continue to remind them of Dr. YOUNG's medical advise moving forward until a medical decision can be made.
--- NOTE | 2025-03-10 16:20 | PM.IMPN ---
Progress Note: A&P Assessment and Plan (1) Right rib fracture: Code(s): S22.31XA - Fracture of one rib, right side, initial encounter for closed fracture Status: Acute (2) Hemothorax on right: Code(s): J94.2 - Hemothorax Status: Acute (3) Compression fracture of T3 vertebra: Code(s): S22.030A - Wedge compression fracture of third thoracic vertebra, initial encounter for closed fracture Status: Acute (4) Hypertension: Qualifiers: Hypertension type: primary hypertension Qualified Code(s): I10 - Essential (primary) hypertension Code(s): I10 - Essential (primary) hypertension Status: Acute (5) Atrial fibrillation: Code(s): I48.91 - Unspecified atrial fibrillation Status: Acute (6) Benign prostatic hyperplasia: Code(s): N40.0 - Benign prostatic hyperplasia without lower urinary tract symptoms Status: Acute (7) Chronic anticoagulation: Code(s): Z79.01 - care home (current) use of anticoagulants Status: Acute (8) Type 2 diabetes mellitus: Code(s): E11.9 - Type 2 diabetes mellitus without complications Status: Acute Plan DNR and comfort care. Hospice evaluation pending tomorrow Delirium Resolved Patient was noted to have agitated overnight and was unable to sleep until this morning Delirium precautions Nighttime Seroquel 25mg po monitor Right rib fracture Had a repeat fall on 03/07 night patient appears comfortable at bedside CT Chest and AP, showed non displaced segmental fractures of the right posterolateral 9th adn 10th ribs respecttively with small adjacent pleural fluid collection and distended rectum by formed stool PRN pain control Constipation CT AP reviewed Daily Miralax, dulcolax and adjust with clinical course monitor Compression T3 compression fracture continue PRN pain control Neurosurgery consulted Order MRI cervical, lumbar, thoracic Right hemathorax Had a repeat fall on 03/[address] Repeat CT shows small pleural effusion and no comment on hemothorax Discussed with the radiologist in regard to the CT scan finding. Radiologist believe the hemothorax has not evolved into bigger but still present resolving into seroma. 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 Discussed about comfort care/hospice. Patient agrees for comfort care and hospice will be consulted tomorrow. During the discussion Charlotte FERNANDEZ was present. Patient will be DNR and will start comfort care. Review of Systems Review of Systems: 12 systems were reviewed and are negative except for as per HPI. All systems reviewed & are unremarkable except as noted in HPI and below Exam Narrative: General: Thin, frail elderly appearing gentleman sitting up in bed in no acute distress. Weight: 67 kg. BMI: 21.2. HEENT: PERRL, EOMI. Sclera anicteric. Tacky mucous membranes. Neck: Supple. Respiratory: Coughs intermittently. Scattered coarse rhonchi which improved with cough. Cardiovascular: Irregularly irregular rate and rhythm with S1-S2. Gastrointestinal: Abdomen is soft, nontender, and nondistended with positive bowel sounds. Skin: Warm and dry. No rash or lesions on limited exam. Extremities: No cyanosis, clubbing, or significant edema. Radial and pedal pulses intact. Spine: No midline vertebral tenderness. Neurovascular intact in the lower extremities. Musculoskeletal: He is tender to palpation over the lower ribs posterior and anterolaterally. No bruising noted. Neurological: Alert. Cranial nerves 2-12 are grossly intact. Tremors of the upper extremity. Generalized weakness without gross focal findings. Psychiatric: Pleasant and cooperative with appropriate mood and affect. Objective Data Vital Signs Vital Signs: Vital Signs - 24 hr 03/09/25 20:04 03/09/25 20:12 03/10/25 05:30 Temperature 98.6 F 97.6 F Pulse Rate 80 64 Respiratory Rate 18 18 Blood Pressure 122/79 138/82 Pulse Oximetry 98 96 Oxygen Delivery Room Air 03/10/25 10:24 03/10/25 10:25 03/10/25 14:48 Temperature 98.1 F 98.5 F Pulse Rate 75 68 Respiratory Rate 18 16 Blood Pressure 139/89 120/69 Pulse Oximetry 97 96 Oxygen Delivery Room Air Intake/Output Intake/Output: Intake & Output 03/07/25 03/08/25 03/09/25 03/10/25 23:59 23:59 23:59 23:59 Intake Total 1260 660 770 120 Output Total 1750 [address] [facility] -490 -1290 -730 -330 Meds/Results Medications: Active Medications Generic Name Dose Route Start Last Admin Trade Name Freq PRN Reason Stop Dose Admin Acetaminophen 650 mg 03/09/25 18:01 Acetaminophen Elixir 325 Mg/10.15 Ml Udc PO Q4H PRN Mild Pain (1-3) or Fever Atorvastatin Calcium 10 mg 03/04/25 09:00 03/10/25 10:20 Atorvastatin 10 Mg Tablet BY MOUTH 10 mg DAILY JOSH Administration Clonazepam 0.25 mg 03/04/25 09:00 03/10/25 10:16 Clonazepam (*Crx) 0.25 Mg Tablet PO 0.25 mg BID JOSH Administration Dextrose 12.5 gm 03/04/25 00:43 Dextrose 50% 25 Gm/50 Ml Syringe IV PUSH PRN PRN Hypoglycemia Protocol Diclofenac Sodium 75 mg 03/04/25 07:51 03/05/25 20:09 Diclofenac Sod 75 Mg Tablet.Ec PO 75 mg BIDWM PRN Administration Pain Rated 4-6 Diltiazem HCl 180 mg 03/04/25 09:00 03/10/25 10:20 Diltiazem Hcl Cd 180 Mg Cap.24hr BY MOUTH 180 mg DAILY JOSH Administration Docusate Sodium 100 mg 03/04/25 09:00 03/10/25 10:21 Docusate Sodium 100 Mg Capsule PO Not Given BID [facility] Escitalopram Oxalate 5 mg 03/04/25 09:00 03/10/25 10:20 Escitalopram Oxalate 5 Mg Tablet PO 5 mg DAILY JOSH Administration Fluticasone Propionate 1 spray 03/03/25 23:40 Fluticasone Propionate 0.05% Na Spr 16 Gm Btl (*Bkc) NASAL Q12H PRN nasal congestion Glucagon 1 mg 03/04/25 00:43 Glucagon For Inj 1 Mg Vial IM PRN PRN Hypoglycemia Protocol Glucose 15 gm 03/04/25 00:43 Glucose Oral Gel 15 Gm Of Glucse In 37.5 Gm Tube PO PRN PRN Hypoglycemia Protocol Guaifenesin 1,200 mg 03/04/25 09:00 03/10/25 10:20 Guaifenesin 12 Hr 600 Mg Tabcr PO 1,200 mg Q12HR JOSH Administration Dextrose 1,000 mls @ 100 mls/hr 03/04/25 00:43 Dextrose 5% 1,000 Ml IVPB PRN PRN Hypoglycemia Protocol Insulin Aspart 2 - 5 units 03/04/25 08:00 03/10/25 15:53 Insulin Aspart (*Bkc) 100 Units/Ml SUB-Q Not Given TIDWM JOSH Protocol Insulin Aspart 1 - 2 units 03/04/25 21:00 03/09/25 20:12 Insulin Aspart (*Bkc) 100 Units/Ml SUB-Q Not Given HS JOSH Protocol Latanoprost 1 drop 03/04/25 00:30 03/09/25 20:13 Latanoprost 0.005% Op Soln 2.5 Ml Btl EACH EYE 1 drop QHS JOSH Administration Lidocaine 1 patch 03/04/25 09:00 03/10/25 10:21 Lidocaine 5% Patch TRANSDERM 1 patch DAILY JOSH Administration Melatonin 5 mg 03/04/25 19:40 03/09/25 20:33 Melatonin 5 Mg Tablet PO 5 mg HS PRN Administration Insomnia Morphine Sulfate 2 mg 03/04/25 00:44 03/05/25 06:31 Morphine Sulfate (*Crx) 2 Mg/Ml Inj IV PUSH 2 mg Q4H PRN Administration Pain Rated 7-10 Multivitamins/Minerals 1 tablet 03/04/25 09:00 03/10/25 10:20 Opti-Gen Tab PO 1 tablet BID JOSH Administration Ondansetron HCl 4 mg 03/03/25 19:46 03/05/25 06:32 Ondansetron Inj 4 Mg/2 Ml Vial IV PUSH 4 mg Q4H PRN Administration Nausea Pantoprazole Sodium 40 mg 03/04/25 09:00 03/10/25 10:20 Pantoprazole 40 Mg Tablet BY MOUTH 40 mg DAILY JOSH Administration Polyethylene Glycol 17 gm 03/05/25 09:00 03/10/25 10:21 Polyethylene Glycol 3350 17 Gm Powd.Pack PO 17 gm QAM JOSH Administration Quetiapine Fumarate 25 mg 03/05/25 21:00 03/09/25 20:12 Quetiapine Fumarate 25 Mg Tablet PO 25 mg HS JOSH Administration Tamsulosin HCl 0.4 mg 03/03/25 23:50 03/09/25 20:12 Tamsulosin Hcl 0.4 Mg Capsule PO 0.4 mg HS JOSH Administration Radiology Results: ITS Impressions Ribs w/Chest X-Ray 03/04/25 16:47 IMPRESSION: Nondisplaced segmental posterior lateral right ninth and 10th rib fractures. Mildly displaced posterior right 10th rib fracture. Small right pleural fluid collection, likely small hemothorax. Possible trace left pleural fluid. Streaky left basilar opacities likely representing atelectasis. Chest/Abdomen CT 03/06/25 11:56 IMPRESSION: 1. Again seen are recent minimally displaced fractures of the posterior right ninth-11th ribs with likely secondary small right pleural effusion. Tiny left pleural effusion. 2. No change since 03/03/2025 and relatively recent-appearing T3 and T7 compression fractures. 3. Cardiomegaly. 4. Bilateral nonobstructing nephrolithiasis. 5. Large amount of colonic stool which can be seen with constipation. Head CT 03/07/25 20:36 Impression: No acute intracranial hemorrhage or suspicious mass effect. Chest/Abdomen/Pelvis CT 03/08/25 16:35 IMPRESSION: Stable findings within the chest, abdomen and pelvis, as detailed above. Knee X-Ray 03/08/25 16:49 IMPRESSION: No acute osseous abnormality right knee. Severe osteoarthritic changes. Modified Barium Swallow 03/10/25 12:16 IMPRESSION: Pharyngeal dysphagia with laryngeal penetration and aspiration. Please correlate with speech pathologist findings and specific feeding recommendations. Cervical Spine MRI 03/10/25 14:30 IMPRESSION: 1. No evidence of fracture or dislocation. 2. Multilevel degenerative disc disease with variable degrees of spinal canal stenosis, intervertebral foraminal narrowing and nerve root compression. 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 Thoracic Spine MRI 03/10/25 14:54 IMPRESSION: Acute compression fracture of T7 with loss of volume of about 50%. No retropulsed fragments seen. No spinal canal stenosis. Highly suggestive of hematoma on the sides s of the same level. Chronic compression fracture of T3 with minimal loss of of height. Right pleural effusion. Labs Labs: Laboratory Results - last 24 hr 03/09/25 03/09/25 03/10/25 17:00 20:01 04:33 WBC 5.9 RBC 3.94 L Hgb 12.2 L Hct 37.9 L MCV 96.2 MCH 31.0 MCHC 32.2 RDW 13.0 Plt Count 253 MPV 9.3 Sodium 136 L Potassium 4.3 Chloride 106 Carbon Dioxide 25 Anion Gap 5 BUN 14 Creatinine 0.58 L Estim Creat Clear Calc 77 Estimated GFR > 60 Glucose 104 POC Capillary Glucose 119 H 179 H Calcium 8.4 Total Bilirubin 0.6 AST 38 ALT 25 Alkaline Phosphatase 111 Total Protein 6.0 L Albumin 3.2 L 03/10/25 08:19 WBC RBC Hgb Hct MCV MCH MCHC RDW Plt Count MPV Sodium Potassium Chloride Carbon Dioxide Anion Gap BUN Creatinine Estim Creat Clear Calc Estimated GFR Glucose POC Capillary Glucose 117 H Calcium Total Bilirubin AST ALT Alkaline Phosphatase Total Protein Albumin Quality VTE Prophylaxis VTE prophylaxis: mechanical ordered Hospitalist [facility] Advance Care Plan I have confirmed that the patient's Advanced Care Plan is present, code status is documented, or surrogate decision maker is listed in patient medical record.: Yes Medication Reconciliation I have utilized all available resources to obtain, update and review the patients current medications (includes all prescriptions, OTC, herbals, cannabis, and nutritional supplements).: Yes
[2025-03-10 17:06] LABS: Glucose Point of Care 125 mg/dl (65-105)
[2025-03-10] MEDS: MELATONIN 5 MG TABLET PO (20:11)
[2025-03-10] MEDS: QUEtiapine FUMARATE 25 MG TABLET PO (20:11)
[2025-03-10] MEDS: LATANOPROST 0.005% OP SOLN 2.5 ML BTL 1 DROP EACH EYE (20:13)
[2025-03-10 20:46] VITALS: BP 121/66; PULSE 67; RESP 16; TEMP 36.8; O2SAT 98
[2025-03-10 21:38] LABS: Glucose Point of Care 197 mg/dl (65-105)
[2025-03-10] MEDS: ACETAMINOPHEN ELIXIR 325 MG/10.15 ML UDC 650 MG PO (22:33)
[2025-03-11 05:05] LABS: Hematocrit 42.3 % (42.0-52.0); Hemoglobin 12.7 g/dL (14.0-18.0); Mean Corpuscular Hemoglobin 31.3 pg (26-34); Mean Corpuscular Volume 104.2 fl (80-100); Mean Platelet Volume 9.3 fl (7.4-10.4); Platelet Count Result 215 k/mm3 (150-375); Red Blood Count 4.06 M/mm3 (4.6-6.20); Red Cell Distribution Width 13.1 % (11.5-14.5); White Blood Count 5.2 K/mm3 (4.5-10.0)
[2025-03-11 05:17] LABS: Alanine Aminotransferase 24 U/L (6-50); Albumin Level 3.4 g/dL (3.5-5.1); Alkaline Phosphatase 118 U/L (38-126); Anion Gap 5 mmol/L (4-12); Aspartate Amino Transferase 36 U/L (17-59); Bilirubin,Total 0.7 mg/dL (0.2-1.3); Blood Urea Nitrogen 16 mg/dL (9-20); Calcium 8.6 mg/dL (8.4-10.2); Carbon Dioxide 26 mmol/L (22-30); Chloride 105 mmol/L (98-107); Estimated CRCL calculation 76 ml/min; Estimated Glomerular Filt Rate > 60; Glucose 100 mg/dL (65-110); Potassium 4.2 mmol/L (3.4-5.0); Sodium 136 mmol/L (137-145)
[2025-03-11 07:09] VITALS: BP 131/75; PULSE 64; RESP 16; TEMP 36.6; O2SAT 99
--- NOTE | 2025-03-11 10:04 | PM.IMPN ---
Progress Note: A&P Assessment and Plan (1) Right rib fracture: Code(s): S22.31XA - Fracture of one rib, right side, initial encounter for closed fracture Status: Acute (2) Hemothorax on right: Code(s): J94.2 - Hemothorax Status: Acute (3) Compression fracture of T3 vertebra: Code(s): S22.030A - Wedge compression fracture of third thoracic vertebra, initial encounter for closed fracture Status: Acute (4) Hypertension: Qualifiers: Hypertension type: primary hypertension Qualified Code(s): I10 - Essential (primary) hypertension Code(s): I10 - Essential (primary) hypertension Status: Acute (5) Atrial fibrillation: Code(s): I48.91 - Unspecified atrial fibrillation Status: Acute (6) Benign prostatic hyperplasia: Code(s): N40.0 - Benign prostatic hyperplasia without lower urinary tract symptoms Status: Acute (7) Chronic anticoagulation: Code(s): Z79.01 - halfway (current) use of anticoagulants Status: Acute (8) Type 2 diabetes mellitus: Code(s): E11.9 - Type 2 diabetes mellitus without complications Status: Acute Plan DNR and comfort care. Hospice evaluation pending Delirium Resolved Patient was noted to have agitated overnight and was unable to sleep until this morning Delirium precautions Nighttime Seroquel 25mg po monitor Right rib fracture Had a repeat fall on 03/07 night patient appears comfortable at bedside CT Chest and AP, showed non displaced segmental fractures of the right posterolateral 9th adn 10th ribs respecttively with small adjacent pleural fluid collection and distended rectum by formed stool PRN pain control Constipation CT AP reviewed Daily Miralax, dulcolax and adjust with clinical course monitor Compression T3 compression fracture continue PRN pain control Neurosurgery consulted Reviewed MRI cervical, lumbar, thoracic Acute compression fracture T7 Right hemathorax Had a repeat fall on 03/[address] Repeat CT shows small pleural effusion and no comment on hemothorax Discussed with the radiologist in regard to the CT scan finding. Radiologist believe the hemothorax has not evolved into bigger but still present resolving into seroma. 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 Patient is currently on comfort care Review of Systems Review of Systems: 12 systems were reviewed and are negative except for as per HPI. All systems reviewed & are unremarkable except as noted in HPI and below Exam Narrative: General: Thin, frail elderly appearing gentleman sitting up in bed in no acute distress. Weight: 67 kg. BMI: 21.2. HEENT: PERRL, EOMI. Sclera anicteric. Tacky mucous membranes. Neck: Supple. Respiratory: Coughs intermittently. Scattered coarse rhonchi which improved with cough. Cardiovascular: Irregularly irregular rate and rhythm with S1-S2. Gastrointestinal: Abdomen is soft, nontender, and nondistended with positive bowel sounds. Skin: Warm and dry. No rash or lesions on limited exam. Extremities: No cyanosis, clubbing, or significant edema. Radial and pedal pulses intact. Spine: No midline vertebral tenderness. Neurovascular intact in the lower extremities. Musculoskeletal: He is tender to palpation over the lower ribs posterior and anterolaterally. No bruising noted. Neurological: Alert. Cranial nerves 2-12 are grossly intact. Tremors of the upper extremity. Generalized weakness without gross focal findings. Psychiatric: Pleasant and cooperative with appropriate mood and affect. Objective Data Vital Signs Vital Signs: Vital Signs - 24 hr 03/10/25 10:24 03/10/25 10:25 03/10/25 14:48 Temperature 98.1 F 98.5 F Pulse Rate 75 68 Respiratory Rate 18 16 Blood Pressure 139/89 120/69 Pulse Oximetry 97 96 Oxygen Delivery Room Air 03/10/25 20:13 03/10/25 20:46 03/11/25 07:09 Temperature 98.3 F 97.8 F Pulse Rate 67 64 Respiratory Rate 16 16 Blood Pressure 121/66 131/75 Pulse Oximetry 98 99 Oxygen Delivery Room Air Intake/Output Intake/Output: Intake & Output 03/08/25 03/09/25 03/10/25 03/11/25 23:59 23:59 23:59 23:59 Intake Total 660 770 120 150 Output Total 1950 1500 1000 400 Balance -1290 -730 -880 -250 Meds/Results Medications: Active Medications Generic Name Dose Route Start Last Admin Trade Name Freq PRN Reason Stop Dose Admin Acetaminophen 650 mg 03/09/25 18:01 03/10/25 22:33 Acetaminophen Elixir 325 Mg/10.15 Ml Udc PO 650 mg Q4H PRN Administration Mild Pain (1-3) or Fever Atorvastatin Calcium 10 mg 03/04/25 09:00 03/10/25 10:20 Atorvastatin 10 Mg Tablet BY MOUTH 10 mg DAILY JOSH Administration Clonazepam 0.25 mg 03/04/25 09:00 03/10/25 19:08 Clonazepam (*Crx) 0.25 Mg Tablet PO Not Given BID JOSH Dextrose 12.5 gm 03/04/25 00:43 Dextrose 50% 25 Gm/50 Ml Syringe IV PUSH PRN PRN Hypoglycemia Protocol Diclofenac Sodium 75 mg 03/04/25 07:51 03/05/25 20:09 Diclofenac Sod 75 Mg Tablet.Ec PO 75 mg BIDWM PRN Administration Pain Rated 4-6 Diltiazem HCl 180 mg 03/04/25 09:00 03/10/25 10:20 Diltiazem Hcl Cd 180 Mg Cap.24hr BY MOUTH 180 mg DAILY JOSH Administration Docusate Sodium 100 mg 03/04/25 09:00 03/10/25 18:50 Docusate Sodium 100 Mg Capsule PO Not Given BID JOSH Escitalopram Oxalate 5 mg 03/04/25 09:00 03/10/25 10:20 Escitalopram Oxalate 5 Mg Tablet PO 5 mg DAILY JOSH Administration Fluticasone Propionate 1 spray 03/03/25 23:40 Fluticasone Propionate 0.05% Na Spr 16 Gm Btl (*Bkc) NASAL Q12H PRN nasal congestion Glucagon 1 mg 03/04/25 00:43 Glucagon For Inj 1 Mg Vial IM PRN PRN Hypoglycemia Protocol Glucose 15 gm 03/04/25 00:43 Glucose Oral Gel 15 Gm Of Glucse In 37.5 Gm Tube PO PRN PRN Hypoglycemia Protocol Guaifenesin 1,200 mg 03/04/25 09:00 03/10/25 21:26 Guaifenesin 12 Hr 600 Mg Tabcr PO Not Given Q12HR JOSH Dextrose 1,000 mls @ 100 mls/hr 03/04/25 00:43 Dextrose 5% 1,000 Ml IVPB PRN PRN Hypoglycemia Protocol Insulin Aspart 2 - 5 units 03/04/25 08:00 03/10/25 18:49 Insulin Aspart (*Bkc) 100 Units/Ml SUB-Q Not Given TIDWM [facility] Protocol Insulin Aspart 1 - 2 units 03/04/25 21:00 03/10/25 21:26 Insulin Aspart (*Bkc) 100 Units/Ml SUB-Q Not Given HS [facility] Protocol Latanoprost 1 drop 03/04/25 00:30 03/10/25 20:13 Latanoprost 0.005% Op Soln 2.5 Ml Btl EACH EYE 1 drop QHS JOSH Administration Lidocaine 1 patch 03/04/25 09:00 03/10/25 10:21 Lidocaine 5% Patch TRANSDERM 1 patch DAILY JOSH Administration Melatonin 5 mg 03/04/25 19:40 03/10/25 20:11 Melatonin 5 Mg Tablet PO 5 mg HS PRN Administration Insomnia Morphine Sulfate 2 mg 03/04/25 00:44 03/05/25 06:31 Morphine Sulfate (*Crx) 2 Mg/Ml Inj IV PUSH 2 mg Q4H PRN Administration Pain Rated 7-10 Multivitamins/Minerals 1 tablet 03/04/25 09:00 03/10/25 19:08 Opti-Gen Tab PO Not Given BID JOSH Ondansetron HCl 4 mg 03/03/25 19:46 03/05/25 06:32 Ondansetron Inj 4 Mg/2 Ml Vial IV PUSH 4 mg Q4H PRN Administration Nausea Pantoprazole Sodium 40 mg 03/04/25 09:00 03/10/25 10:20 Pantoprazole 40 Mg Tablet BY MOUTH 40 mg DAILY JOSH Administration Polyethylene Glycol 17 gm 03/05/25 09:00 03/10/25 10:21 Polyethylene Glycol 3350 17 Gm Powd.Pack PO 17 gm QAM JOSH Administration Quetiapine Fumarate 25 mg 03/05/25 21:00 03/10/25 20:11 Quetiapine Fumarate 25 Mg Tablet PO 25 mg HS [facility] Administration Tamsulosin HCl 0.4 mg 03/03/25 23:50 03/10/25 21:27 Tamsulosin Hcl 0.4 Mg Capsule PO Not Given HS [facility] Radiology Results: ITS Impressions Ribs w/Chest X-Ray 03/04/25 16:47 IMPRESSION: Nondisplaced segmental posterior lateral right ninth and 10th rib fractures. Mildly displaced posterior right 10th rib fracture. Small right pleural fluid collection, likely small hemothorax. Possible trace left pleural fluid. Streaky left basilar opacities likely representing atelectasis. Chest/Abdomen CT 03/06/25 11:56 IMPRESSION: 1. Again seen are recent minimally displaced fractures of the posterior right ninth-11th ribs with likely secondary small right pleural effusion. Tiny left pleural effusion. 2. No change since 03/03/2025 and relatively recent-appearing T3 and T7 compression fractures. 3. Cardiomegaly. 4. Bilateral nonobstructing nephrolithiasis. 5. Large amount of colonic stool which can be seen with constipation. Head CT 03/07/25 20:36 Impression: No acute intracranial hemorrhage or suspicious mass effect. Chest/Abdomen/Pelvis CT 03/08/25 16:35 IMPRESSION: Stable findings within the chest, abdomen and pelvis, as detailed above. Knee X-Ray 03/08/25 16:49 IMPRESSION: No acute osseous abnormality right knee. Severe osteoarthritic changes. Modified Barium Swallow 03/10/25 12:16 IMPRESSION: Pharyngeal dysphagia with laryngeal penetration and aspiration. Please correlate with speech pathologist findings and specific feeding recommendations. Cervical Spine MRI 03/10/25 14:30 IMPRESSION: 1. No evidence of fracture or dislocation. 2. Multilevel degenerative disc disease with variable degrees of spinal canal stenosis, intervertebral foraminal narrowing and nerve root compression. 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 Thoracic Spine MRI 03/10/25 14:54 IMPRESSION: Acute compression fracture of T7 with loss of volume of about 50%. No retropulsed fragments seen. No spinal canal stenosis. Highly suggestive of hematoma on the sides s of the same level. Chronic compression fracture of T3 with minimal loss of of height. Right pleural effusion. Lumbar Spine MRI 03/10/25 17:06 IMPRESSION: Old compression fracture of L3. Multilevel spinal canal stenosis, intervertebral foraminal narrowing and root compression. Hemangioma in L2 and L4. Right renal cyst. Ultrasound confirmation advised. Labs Labs: Laboratory Results - last 24 hr 03/10/25 03/10/25 03/11/25 17:02 20:45 04:36 WBC 5.2 RBC 4.06 L Hgb 12.7 L Hct 42.3 MCV 104.2 H D MCH 31.3 MCHC 30.0 L RDW 13.1 Plt Count 215 MPV 9.3 Sodium 136 L Potassium 4.2 Chloride 105 Carbon Dioxide 26 Anion Gap 5 BUN 16 Creatinine 0.59 L Estim Creat Clear Calc 76 Estimated GFR > 60 Glucose 100 POC Capillary Glucose 125 H 197 H Calcium 8.6 Total Bilirubin 0.7 AST 36 ALT 24 Alkaline Phosphatase 118 Total Protein 6.0 L Albumin 3.4 L Quality VTE Prophylaxis VTE prophylaxis: mechanical ordered Hospitalist [facility] Advance Care Plan I have confirmed that the patient's Advanced Care Plan is present, code status is documented, or surrogate decision maker is listed in patient medical record.: Yes Medication Reconciliation I have utilized all available resources to obtain, update and review the patients current medications (includes all prescriptions, OTC, herbals, cannabis, and nutritional supplements).: Yes
--- NOTE | 2025-03-11 13:41 | PC.NURSE ---
Patient's is a very poor historian and claims to have never spoke to anyone. RN has been approached at the nurses' station multiple times, asking the same questions. RN, healthcare applications analyst, and doctor has been in room many times throughout each shift. Patient's has requested RN to be in room every 10 minutes.
[2025-03-11] MEDS: dilTIAZem HCL CD 180 MG CAP.24HR BY MOUTH (13:50)
[2025-03-11] MEDS: ESCITALOPRAM OXALATE 5 MG TABLET PO (13:54)
[2025-03-11] MEDS: LORazepam INJ (*CRX) 2 MG/ML VIAL 0.5 MG IV PUSH (16:43)
--- NOTE | 2025-03-11 17:22 | PC.NURSE ---
Addendum entered by Charlotte Abraham RN [facility] 03/11/25 17:26: RN also explained that patient has risk of aspirating if taking the medication. The requested medication was either crushed and put in applesauce or IV. Original Note: Patient is comfort care, but chart does not accurately reflect that. RN gave only the medicine that patient and/or family requested.
--- NOTE | 2025-03-11 17:26 | PC.NURSE ---
RN convinced Ana to come see oriented family members and convinced the confused spouse to go home.
[2025-03-11 17:32] VITALS: BP 129/81; PULSE 80; RESP 18; TEMP 36.6; O2SAT 99
[2025-03-11] MEDS: MELATONIN 5 MG TABLET PO (20:13)
[2025-03-11] MEDS: QUEtiapine FUMARATE 25 MG TABLET PO (20:13)
[2025-03-11] MEDS: LATANOPROST 0.005% OP SOLN 2.5 ML BTL 1 DROP EACH EYE (20:24)
[2025-03-11 20:32] LABS: Glucose Point of Care 142 mg/dl (65-105)
[2025-03-11 21:01] VITALS: BP 143/87; PULSE 75; RESP 20; TEMP 36.8; O2SAT 100
[2025-03-12 08:50] LABS: Glucose Point of Care 112 mg/dl (65-105)
[2025-03-12 09:03] VITALS: RESP 20; O2SAT 100
--- NOTE | 2025-03-12 10:44 | P.PNIM_ITS ---
Progress Note: A&P Assessment and Plan (1) Right rib fracture: Code(s): S22.31XA - Fracture of one rib, right side, initial encounter for closed fracture Status: Acute (2) Hemothorax on right: Code(s): J94.2 - Hemothorax Status: Acute (3) Compression fracture of T3 vertebra: Code(s): S22.030A - Wedge compression fracture of third thoracic vertebra, initial encounter for closed fracture Status: Acute (4) Hypertension: Qualifiers: Hypertension type: primary hypertension Qualified Code(s): I10 - Essential (primary) hypertension Code(s): I10 - Essential (primary) hypertension Status: Acute (5) Atrial fibrillation: Code(s): I48.91 - Unspecified atrial fibrillation Status: Acute (6) Benign prostatic hyperplasia: Code(s): N40.0 - Benign prostatic hyperplasia without lower urinary tract symptoms Status: Acute (7) Chronic anticoagulation: Code(s): Z79.01 - custodial (current) use of anticoagulants Status: Acute (8) Type 2 diabetes mellitus: Code(s): E11.9 - Type 2 diabetes mellitus without complications Status: Acute Plan DNR and comfort care. Hospice evaluation pending Delirium Resolved Patient was noted to have agitated overnight and was unable to sleep until this morning Delirium precautions Nighttime Seroquel 25mg po monitor Right rib fracture Had a repeat fall on 03/07 night patient appears comfortable at bedside CT Chest and AP, showed non displaced segmental fractures of the right posterolateral 9th adn 10th ribs respecttively with small adjacent pleural fluid collection and distended rectum by formed stool PRN pain control Constipation CT AP reviewed Daily Miralax, dulcolax and adjust with clinical course monitor Compression T3 compression fracture continue PRN pain control Neurosurgery consulted Reviewed MRI cervical, lumbar, thoracic Acute compression fracture T7 Right hemathorax Had a repeat fall on 03/[address] Repeat CT shows small pleural effusion and no comment on hemothorax Discussed with the radiologist in regard to the CT scan finding. Radiologist believe the hemothorax has not evolved into bigger but still present resolving into seroma. hold Eliquis for now and monitor HTN Titrate home meds with clinical course Afib Continue Rate control Eliquis on hold now DM2 SSI with accucheks adjust clinical course DVT prophylaxis on SCDs, Eliquis on hold due to hemathorax PT/OT and coronary care unit nurse Awaiting hospice eval today Subjective Date/time seen: 03/12/25 10:44 Interval history: Comfortable at bedside adn waiting hospice eval Review of Systems Review of Systems: 12 systems were reviewed and are negativ e except for as per HPI. All systems reviewed & are unremarkable except as noted in HPI and below Exam Narrative: General: Thin, frail elderly appearing gentleman sitting up in bed in no acute distress. Weight: 67 kg. BMI: 21.2. HEENT: PERRL, EOMI. Sclera anicteric. Tacky mucous membranes. Neck: Supple. Respiratory: Coughs intermittently. Scattered coarse rhonchi which improved with cough. Cardiovascular: Irregularly irregular rate and rhythm with S1-S2. Gastrointestinal: Abdomen is soft, nontender, and nondistended with positive bowel sounds. Skin: Warm and dry. No rash or lesions on limited exam. Extremities: No cyanosis, clubbing, or significant edema. Radial and pedal pulses intact. Spine: No midline vertebral tenderness. Neurovascular intact in the lower extremities. Musculoskeletal: He is tender to palpation over the lower ribs posterior and anterolaterally. No bruising noted. Neurological: Alert. Cranial nerves 2-12 are grossly intact. Tremors of the upper extremity. Generalized weakness without gross focal findings. Psychiatric: Pleasant and cooperative with appropriate mood and affect. Objective Data Vital Signs Vital Signs: Vital Signs - 24 hr 03/11/25 17:32 03/11/25 20:13 03/11/25 21:01 Temperature 98 F 98.2 F Pulse Rate 80 75 Respiratory Rate 18 20 Blood Pressure 129/81 143/87 H Pulse Oximetry 99 100 Oxygen Delivery Room Air Intake/Output Intake/Output: Intake & Output 03/09/25 03/10/25 03/11/25 03/12/25 23:59 23:59 23:59 23:59 Intake Total 770 120 990 0 Output Total 1500 1000 1000 1000 Balance -730 - Meds/Results Medications: Active Medications Generic Name Dose Route Start Last Admin Trade Name Freq PRN Reason Stop Dose Admin Acetaminophen 650 mg 03/09/25 18:01 03/10/25 22:33 Acetaminophen Elixir 325 Mg/10.15 Ml Udc PO 650 mg Q4H PRN Administration Mild Pain (1-3) or Fever Atorvastatin Calcium 10 mg 03/04/25 09:00 03/12/25 09:01 Atorvastatin 10 Mg Tablet BY MOUTH Not Given DAILY [facility] Clonazepam 0.25 mg 03/04/25 09:00 03/12/25 09:01 Clonazepam (*Crx) 0.25 Mg Tablet PO Not Given BID [facility] Dextrose 12.5 gm 03/04/25 00:43 Dextrose 50% 25 Gm/50 Ml Syringe IV PUSH PRN PRN Hypoglycemia Protocol Diclofenac Sodium 75 mg 03/04/25 07:51 03/05/25 20:09 Diclofenac Sod 75 Mg Tablet.Ec PO 75 mg BIDWM PRN Administration Pain Rated 4-6 Diltiazem HCl 180 mg 03/04/25 09:00 03/12/25 09:02 Diltiazem Hcl Cd 180 Mg Cap.24hr BY MOUTH Not Given DAILY [facility] Docusate Sodium 100 mg 03/04/25 09:00 03/12/25 09:02 Docusate Sodium 100 Mg Capsule PO Not Given BID [facility] Escitalopram Oxalate 5 mg 03/04/25 09:00 03/12/25 09:02 Escitalopram Oxalate 5 Mg Tablet PO Not Given DAILY [facility] Fluticasone Propionate 1 spray 03/03/25 23:40 Fluticasone Propionate 0.05% Na Spr 16 Gm Btl (*Bkc) NASAL Q12H PRN nasal congestion Glucagon 1 mg 03/04/25 00:43 Glucagon For Inj 1 Mg Vial IM PRN PRN Hypoglycemia Protocol Glucose 15 gm 03/04/25 00:43 Glucose Oral Gel 15 Gm Of Glucse In 37.5 Gm Tube PO PRN PRN Hypoglycemia Protocol Guaifenesin 1,200 mg 03/04/25 09:00 03/12/25 09:03 Guaifenesin 12 Hr 600 Mg Tabcr PO Not Given Q12HR [facility] Dextrose 1,000 mls @ 100 mls/hr 03/04/25 00:43 Dextrose 5% 1,000 Ml IVPB PRN PRN Hypoglycemia Protocol Insulin Aspart 2 - 5 units 03/04/25 08:00 03/12/25 08:59 Insulin Aspart (*Bkc) 100 Units/Ml SUB-Q Not Given TIDWM [facility] Protocol Insulin Aspart 1 - 2 units 03/04/25 21:00 03/11/25 20:25 Insulin Aspart (*Bkc) 100 Units/Ml SUB-Q Not Given HS [facility] Protocol Lactulose 10 gm 03/12/25 09:00 03/12/25 09:03 Lactulose 20 Gm/30 Ml Udc PO Not Given QAM [facility] Latanoprost 1 drop 03/04/25 00:30 03/11/25 20:24 Latanoprost 0.005% Op Soln 2.5 Ml Btl EACH EYE 1 drop QHS [facility] Administration Lidocaine 1 patch 03/04/25 09:00 03/12/25 09:03 Lidocaine 5% Patch TRANSDERM Not Given DAILY [facility] Lorazepam 0.5 mg 03/11/25 15:30 03/11/25 16:43 Lorazepam Inj (*Crx) 2 Mg/Ml Vial IV PUSH 0.5 mg Q6H PRN Administration Anxiety Melatonin 5 mg 03/04/25 19:40 03/11/25 20:13 Melatonin 5 Mg Tablet PO 5 mg HS PRN Administration Insomnia Morphine Sulfate 2 mg 03/04/25 00:44 03/05/25 06:31 Morphine Sulfate (*Crx) 2 Mg/Ml Inj IV PUSH 2 mg Q4H PRN Administration Pain Rated 7-10 Morphine Sulfate 2 mg 03/11/25 15:31 Morphine Sulfate (*Crx) 2 Mg/Ml Inj IV PUSH Q4H PRN Pain Rated 7-10 Multivitamins/Minerals 1 tablet 03/04/25 09:00 03/12/25 09:03 Opti-Gen Tab PO Not Given BID [facility] Ondansetron HCl 4 mg 03/03/25 19:46 03/05/25 06:32 Ondansetron Inj 4 Mg/2 Ml Vial IV PUSH 4 mg Q4H PRN Administration Nausea Pantoprazole Sodium 40 mg 03/04/25 09:00 03/12/25 09:03 Pantoprazole 40 Mg Tablet BY MOUTH Not Given DAILY [facility] Polyethylene Glycol 17 gm 03/05/25 09:00 03/12/25 09:03 Polyethylene Glycol 3350 17 Gm Powd.Pack PO Not Given QAM [facility] Quetiapine Fumarate 25 mg 03/05/25 21:00 03/11/25 20:13 Quetiapine Fumarate 25 Mg Tablet PO 25 mg HS [facility] Administration Tamsulosin HCl 0.4 mg 03/03/25 23:50 03/11/25 20:23 Tamsulosin Hcl 0.4 Mg Capsule PO Not Given HS [facility] Radiology Results: ITS Impressions Ribs w/Chest X-Ray 03/04/25 16:47 IMPRESSION: Nondisplaced segmental posterior lateral right ninth and 10th rib fractures. Mildly displaced posterior right 10th rib fracture. Small right pleural fluid collection, likely small hemothorax. Possible trace left pleural fluid. Streaky left basilar opacities likely representing atelectasis. Chest/Abdomen CT 03/06/25 11:56 IMPRESSION: 1. Again seen are recent minimally displaced fractures of the posterior right ninth-11th ribs with likely secondary small right pleural effusion. Tiny left pleural effusion. 2. No change since 03/03/2025 and relatively recent-appearing T3 and T7 compression fractures. 3. Cardiomegaly. 4. Bilateral nonobstructing nephrolithiasis. 5. Large amount of colonic stool which can be seen with constipation. Head CT 03/07/25 20:36 Impression: No acute intracranial hemorrhage or suspicious mass effect. Chest/Abdomen/Pelvis CT 03/08/25 16:35 IMPRESSION: Stable findings within the chest, abdomen and pelvis, as detailed above. Knee X-Ray 03/08/25 16:49 IMPRESSION: No acute osseous abnormality right knee. Severe osteoarthritic changes. Modified Barium Swallow 03/10/25 12:16 IMPRESSION: Pharyngeal dysphagia with laryngeal penetration and aspiration. Please correlate with speech pathologist findings and specific feeding recommendations. Cervical Spine MRI 03/10/25 14:30 IMPRESSION: 1. No evidence of fracture or dislocation. 2. Multilevel degenerative disc disease with variable degrees of spinal canal stenosis, intervertebral foraminal narrowing and nerve root compression. 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 Thoracic Spine MRI 03/10/25 14:54 IMPRESSION: Acute compression fracture of T7 with loss of volume of about 50%. No retropulsed fragments seen. No spinal canal stenosis. Highly suggestive of hematoma on the sides s of the same level. Chronic compression fracture of T3 with minimal loss of of height. Right pleural effusion. Lumbar Spine MRI 03/10/25 17:06 IMPRESSION: Old compression fracture of L3. Multilevel spinal canal stenosis, intervertebral foraminal narrowing and root compression. Hemangioma in L2 and L4. Right renal cyst. Ultrasound confirmation advised. Labs Labs: Laboratory Results - last 24 hr 03/11/25 03/12/25 20:24 08:48 POC Capillary Glucose 142 H 112 H Quality VTE Prophylaxis VTE prophylaxis: mechanical ordered
[2025-03-12 12:13] LABS: Glucose Point of Care 117 mg/dl (65-105)
--- NOTE | 2025-03-12 13:13 | PCOTNOTE ---
The patient treatment was not able to be completed. Not appropriate at this time. Will plan to continue treatment per plan of care.
--- NOTE | 2025-03-12 13:36 | P.DS_ITS ---
DS: Admitting Diagnosis Discharge Date 03/12/25 Admitting Diagnosis Back pain after a fall. DS: Discharge Diagnosis Discharge Diagnosis (1) Compression fracture of T3 vertebra: Code(s): S22.030A - Wedge compression fracture of third thoracic vertebra, initial encounter for closed fracture Status: Acute (2) Hemothorax on right: Code(s): J94.2 - Hemothorax Status: Acute DS: Summary Hospital Course Hospital Course: This is an 84-year-old male with history of stroke, atrial fibrillation on anticoagulation, hypertension, dyslipidemia, type 2 diabetes mellitus, hyperte nsion, dyslipidemia, gastroesophageal reflux disease, benign prostatic hyperplasia, and prostate cancer status post radiation who presented to the emergency department via private vehicle for evaluation of back pain after a fall. About one week ago he missed a step walking into the garage and fell forward down two steps, landing on his right side. He has been complaining of pain in the right lower back since that time and it has gotten worse the last day or so and he is now having discomfort over the right anterolateral ribs. He is now having difficulties ambulating due to the pain. He denies head trauma and loss of consciousness in the fall and does not have any complaints of pain anywhere else aside from the back and flank. He also denies fever, chills, sweats, cold and flu symptoms, chest pain, pleuritic pain, palpitations, orthopnea, paroxysmal nocturnal dyspnea, productive cough, abdominal pain, nausea, vomiting, diarrhea, dysuria, urine retention, bowel incontinence, saddle anesthesia, focal weakness, and paresthesias. In the ED: Vital signs were stable on arrival. Labs were significant for hemoglobin of 12.3, hematocrit 30.6%, INR 1.4, glucose 115. Urinalysis was positive for 1+ ketones, 3+ blood, trace leukocyte esterase, greater than 100 RBC, and [address] of the chest, abdomen, and pelvis demonstrated nondisplaced right posterolateral 9th, 10th, and 11th rib fractures with a small adjacent pleural fluid collection likely representing small volume hemothorax and mild superior endplate deformity at T3 which may represent acute or chronic mild compression deformity as well as some other incidental findings. I requested the ED physician speak with trauma as I was concerned for possible delayed hemothorax given the patient's increasing pain and findings of small volume hemothorax near a posterior rib fracture; he is also on apixaban. General surgery was contacted instead and felt that the case did not warrant consultation as the fall was a week ago and no recommendations were given. Patient was managed conservatively for Compression T 3 vertebra, right hematoma with PRN pain control and Eliquis was held. Constipation was relieved with Miralax and Dulcolax. While awaiting placement patient and family decided to transition to hospice. Patient was thus discharged home with hospice. Also managed for Delirium and resolved. F/u with PCP and hospice care. Time Spent with Patient Time attestation: Total time spent providing and/or coordinating discharge services: DS: Data Data Completed and Pending Labs on day of discharge: Labs from last 24 hours 03/12/25 03/12/25 03/11/25 12:08 08:48 20:24 POC Capillary Glucose 117 H 112 H 142 H Discharge Plan Discharge Attending physician on discharge: Dave Reyes Consulting providers: Yolanda Mercedes; Dave Reyes Discharging Clinician: Dave Reyes Anticipated Discharge Date/Time: 03/12/25 13:33 Patient Disposition: Hospice - Home Activity: as tolerated Diet: as tolerated Patient Instructions: Apixaban (By mouth) Patient Language: Lithuanian Stand Alone Forms: General Discharge Information Follow-up/Referrals: Lenin Correia DO [Primary Care Provider] - (F/u with PCP in 3-5 days ) Discharge Medications: Continued PreserVision AREDS-2 250-90-40-1 mg capsule 1 tablet PO BID tamsulosin 0.4 mg capsule 0.4 mg PO HS docusate sodium [Stool Softener] 100 mg tablet 600 mg PO BID latanoprost 0.005 % drops 1 drp EACH EYE DAILY fluticasone propionate 50 mcg/actuation spray,suspension 1 spray INTRANASAL Q12H PRN (Reason: nasal congestion) Eliquis 5 mg tablet See Rx Instructions .ROUTE .COMPLEX Qty: 180 2RF Dose Instruction: TAKE 1 TABLET TWICE A DAY Rx Instructions: TAKE 1 TABLET TWICE A DAY atorvastatin 10 mg tablet See Rx Instructions .ROUTE .COMPLEX Qty: 90 2RF Dose Instruction: TAKE 1 TABLET BY MOUTH DAILY Rx Instructions: TAKE 1 TABLET BY MOUTH DAILY metformin 500 mg tablet 500 mg PO QACDINNER Qty: 90 2RF Rx Instructions: TAKE 1 TABLET BY MOUTH DAILY diltiazem HCl 180 mg capsule,extended release 24hr See Rx Instructions .ROUTE .COMPLEX Qty: 30 5RF Dose Instruction: TAKE 1 CAPSULE BY MOUTH DAILY Rx Instructions: TAKE 1 CAPSULE BY MOUTH DAILY pantoprazole 40 mg tablet,delayed release (DR/EC) See Rx Instructions .ROUTE .COMPLEX Qty: 90 3RF Dose Instruction: TAKE 1 TABLET BY MOUTH EVERY DAY Rx Instructions: TAKE 1 TABLET BY MOUTH EVERY DAY escitalopram oxalate [Lexapro] 5 mg tablet 5 mg PO DAILY Qty: 90 1RF clonazepam 0.25 mg tablet,disintegrating 0.25 mg PO BID Qty: 60 0RF Date of admission: 03/04/25 07:34 Primary Care Provider: Lenin Correia Admitting Provider: Dave Reyes Attending physician on admission: Dave Reyes Condition: Stable
[2025-03-12 14:38] VITALS: BP 148/88; PULSE 63; RESP 14; TEMP 36.8; O2SAT 99
== END 2025-03-12 14:55 | disposition hospice, home (50) | DRG 183 ==
LOC: ANHED 19:46 → ANH2MED 21:05
PROVIDERS: General Practice; Physician Assistant; Admitting Provider Internal Medicine; Emergency Provider Emergency Medicine; PCP Internal Medicine; Visit Provider Internal Medicine
DX: S22.41XA Multiple fractures of ribs, right side, initial encounter for closed fracture (principal); S27.1XXA Traumatic hemothorax, initial encounter; S22.061A Stable burst fracture of T7-T8 vertebra, initial encounter for closed fracture; W10.8XXA Fall (on) (from) other stairs and steps, initial encounter; I10 Essential (primary) hypertension; I48.91 Unspecified atrial fibrillation; K21.9 Gastro-esophageal reflux disease without esophagitis; H44.513 Absolute glaucoma, bilateral; E11.9 Type 2 diabetes mellitus without complications; W18.30XA Fall on same level, unspecified, initial encounter; R25.1 Tremor, unspecified; N40.0 Benign prostatic hyperplasia without lower urinary tract symptoms; R41.0 Disorientation, unspecified; E78.5 Hyperlipidemia, unspecified; Z79.01 Long term (current) use of anticoagulants; Z79.84 Long term (current) use of oral hypoglycemic drugs; Z86.73 Personal history of transient ischemic attack (TIA), and cerebral infarction without residual deficits; Z85.46 Personal history of malignant neoplasm of prostate; Z85.828 Personal history of other malignant neoplasm of skin; Z91.81 History of falling
CPT/HCPCS: 36415; 70450; 71046; 71100; 71250; 71260; 72141; 72146; 72148; 73562; 74150; 74176; 74177; 80048; 80053; 81001; 82140; 82607; 82746; 82948; 83036; 83690; 83735; 84443; 85025; 85027; 85610; 85730; 92610; 92611; 93005; 96374; 96375; 96376; 97110; 97162; 97166; 97530; 97535; 99285; A9270; G0378; J1815; J2060; J2270; J2405; Q9967